=== PATIENT | female | born 1970 | race Caucasian/White ===

== ENCOUNTER 2018-07-08 19:28 | Inpatient (IN) | payer BC ==
[~2018-07-08] VITALS: Ht 157.5 cm; Wt 49.5 kg
[2018-07-08 19:53] LABS: BASO # 0.1 x10^3/uL (0.0-0.2); BASO % 1 % (0-3); EOS # 0.1 x10^3/uL (0.0-0.7); EOS % 1 % (0-3); HEMATOCRIT 24.8 % (36.0-47.0); HEMOGLOBIN 7.5 g/dL (12.0-15.5); LYMPH # 1.7 x10^3/uL (1.0-4.8); LYMPH % 15 % (24-48); MEAN CORPUSCULAR HEMOGLOBIN 22 pg (25-35); MEAN CORPUSCULAR HGB CONC 31 g/dL (31-37); MEAN CORPUSCULAR VOLUME 72 fL (79-100); MONO # 0.8 x10^3/uL (0.0-1.1); MONO % 7 % (0-9); NEUT # 8.3 x10^3uL (1.8-7.7); NEUT % 76 % (31-73); PLATELET COUNT 289 x10^3/uL (140-400); RED BLOOD COUNT 3.42 x10^6/uL (3.50-5.40); RED CELL DISTRIBUTION WIDTH 18.9 % (11.5-14.5)
[2018-07-08] MEDS ORDERED: DULO20CA PO (19:56)
[2018-07-08] MEDS ORDERED: CARV3.12 PO (19:56)
[2018-07-08] MEDS ORDERED: POTA10TA12 PO (19:56)
[2018-07-08] MEDS ORDERED: PRED2.5T PO (19:56)
[2018-07-08] MEDS ORDERED: LISI2.5T PO (19:56)
[2018-07-08] MEDS ORDERED: ATOR40TA59 PO (19:56)
[2018-07-08] MEDS ORDERED: TIZA4TAB PO (19:56)
[2018-07-08] MEDS ORDERED: LEVE500T57 PO (19:56)
[2018-07-08] MEDS ORDERED: MYCO500T PO (19:56)
[2018-07-08] MEDS ORDERED: FURO40TA4 PO (19:56)
[2018-07-08] MEDS ORDERED: HYDR200T5 PO (19:56)
[2018-07-08 20:05] LABS: PROTHROMBIN TIME PATIENT 14.1 SEC (11.7-14.0)
[2018-07-08 20:12] LABS: ALBUMIN/GLOBULIN RATIO 0.8 (1.0-1.7); CALCIUM 8.6 mg/dL (8.5-10.1); CREATININE 1.1 mg/dL (0.6-1.0); GFR 53.2; POTASSIUM 3.3 mmol/L (3.5-5.1); TOTAL BILIRUBIN 0.4 mg/dL (0.2-1.0); TOTAL PROTEIN 6.9 g/dL (6.4-8.2)
[2018-07-08 20:24] LABS: ANISOCYTOSIS SLIGHT; HYPOCHROMIA MOD; MICROCYTOSIS SLIGHT; OVALOCYTES FEW; PLT ESTIMATE ADEQUATE (ADEQUATE); POLYCHROMASIA SLIGHT
--- NOTE | 2018-07-08 20:27 | PHYS DOC ---
Adult General Chief Complaint Chief Complaint: Neck Pain [facility] HPI Patient is a 47 year old female who brought in by EMS because of left-sided neck pain. Patient had extensive cardiac history with history of mitral valve r epair, coronary artery disease status post stent placement and CABG, hypertension and accepted them, smoking and complaining of sudden onset of nonexertional left side neck pain with radiation to her jaw with shortness of breath, dizziness, palpitation and nausea. Patient also complaining of headache that is different from her migraine headache. Patient said she had the same neck pain with previous episodes of heart attack. Patient rated her pain 7. Patient treated with aspirin and nitroglycerin 2 by EMS with improvement of her neck pain. Review of Systems Review of Systems Constitutional: Denies fever or chills [] Eyes: Denies change in visual acuity, redness, or eye pain [] HENT: Denies nasal congestion or sore throat [] Respiratory: Reports mild cough and shortness of breath Cardiovascular: No additional information not addressed in HPI [] GI: Denies abdominal pain, vomiting, bloody stools or diarrhea, reports nausea. [] : Denies dysuria or hematuria [] Musculoskeletal: Denies back pain or joint pain [] Integument: Denies rash or skin lesions [] Neurologic: Denies headache, focal weakness or sensory changes [] Endocrine: Denies polyuria or polydipsia [] All other systems were reviewed and found to be within normal limits, except as documented in this note. Current Medications Current Medications Allergies Allergies Allergies Coded Allergies Type Severity Reaction Last Updated Verified No Known Drug Allergies 07/08/18 No Physical Exam Physical Exam Constitutional: Well developed, mild distress, non-toxic appearance, pale. [] HENT: Normocephalic, atraumatic. Eyes: PERRLA, EOMI, conjunctiva normal, no discharge. [] Neck: Normal range of motion, no tenderness, supple, no stridor. [] Cardiovascular:Heart rate regular rhythm, diastolic murmur [] Lungs & Thorax: Bilateral breath sounds clear to auscultation [] Abdomen: Bowel sounds normal, soft, no tenderness, no masses, no pulsatile masses. [] Skin: Warm, dry, no erythema, no rash. [] Back: No tenderness, no CVA tenderness. [] Extremities: No tenderness, no cyanosis, no clubbing, ROM intact, no edema. [] Neurologic: Alert and oriented X 3, normal motor function, normal sensory function, no focal deficits noted. [] Psychologic: Affect normal, judgement normal, mood normal. [] Current Patient Data Vital Signs Vital Signs Date Time Temp Pulse Resp B/P (MAP) Pulse Ox O2 Delivery O2 Flow Rate FiO2 07/08/18 20:37 86 18 115/71 (86) 100 Room Air 07/08/18 19:28 98.0 98.0 Lab Values Laboratory Tests Test 07/08/18 19:40 White Blood Count 11.0 x10^3/uL (4.0-11.0) Red Blood Count 3.42 x10^6/uL (3.50-5.40) L Hemoglobin 7.5 g/dL (12.0-15.5) L Hematocrit 24.8 % (36.0-47.0) L Mean Corpuscular Volume 72 fL (79-100) L Mean Corpuscular Hemoglobin 22 pg (25-35) L Mean Corpuscular Hemoglobin Concent 31 g/dL (31-37) Red Cell Distribution Width 18.9 % (11.5-14.5) H Platelet Count 289 x10^3/uL (140-400) Neutrophils (%) (Auto) 76 % (31-73) H Lymphocytes (%) (Auto) 15 % (24-48) L Monocytes (%) (Auto) 7 % (0-9) Eosinophils (%) (Auto) 1 % (0-3) Basophils (%) (Auto) 1 % (0-3) Neutrophils # (Auto) 8.3 x10^3uL (1.8-7.7) H Lymphocytes # (Auto) 1.7 x10^3/uL (1.0-4.8) Monocytes # (Auto) 0.8 x10^3/uL (0.0-1.1) Eosinophils # (Auto) 0.1 x10^3/uL (0.0-0.7) Basophils # (Auto) 0.1 x10^3/uL (0.0-0.2) Platelet Estimate Adequate (ADEQUATE) Polychromasia Slight Hypochromasia Mod Anisocytosis Slight Microcytosis Slight Ovalocytes Few Prothrombin Time 14.1 SEC (11.7-14.0) H Prothrombin Time INR 1.1 (0.8-1.1) Sodium Level 137 mmol/L (136-145) Potassium Level 3.3 mmol/L (3.5-5.1) L Chloride Level 102 mmol/L (98-107) Carbon Dioxide Level 22 mmol/L (21-32) Anion Gap 13 (6-14) Blood Urea Nitrogen 14 mg/dL (7-20) Creatinine 1.1 mg/dL (0.6-1.0) H Estimated GFR (Cockcroft-Gault) 53.2 BUN/Creatinine Ratio 13 (6-20) Glucose Level 125 mg/dL (70-99) H Calcium Level 8.6 mg/dL (8.5-10.1) Total Bilirubin 0.4 mg/dL (0.2-1.0) Aspartate Amino Transferase (AST) 15 U/L (15-37) Alanine Aminotransferase (ALT) 14 U/L (14-59) Alkaline Phosphatase 96 U/L (46-116) Creatine Kinase 85 U/L (26-192) Troponin I Quantitative 0.031 ng/mL (0.000-0.055) DS-Qox-K-Type Natriuretic Peptide 3188 pg/mL (0-124) H Total Protein 6.9 g/dL (6.4-8.2) Albumin 3.0 g/dL (3.4-5.0) L Albumin/Globulin Ratio 0.8 (1.0-1.7) L Laboratory Tests 07/08/18 19:40 Laboratory Tests 07/08/18 19:40 EKG EKG EKG interpreted by me. EKG at 1932 showed sinus rhythm with rate of 98, abnormal left axis deviation, left anterior fascicular block, right bundle branch block, bifascicular block, LVH repolarization abnormalities, T-wave abnormalities in anteroseptal leads, no acute ST and T-wave elevation, no previous EKG available to compare.[] Radiology/Procedures Radiology/Procedures Chest x-ray interpreted by me and shows cardiomegaly without infiltration. [facility] [address] [place], [place] [id number] IMAGING REPORT Signed PATIENT: NATALIIA HARRIS ACCOUNT: [id number] : 1970 LOCATION: 2 SOUTH AGE: 47 SEX: F EXAM STATUS: ADM IN ORD. PHYSICIAN: INO PAULA MD REASON: headache PROCEDURE: CT HEAD WO CONTRAST CT Head W/O Contrast: History: headache Comparison: none Axial images were obtained without contrast. There is moderate diffuse atrophy. There is hypoattenuating areas of evolving duarte-white matter in the occipital lobes and in the frontoparietal lobes. The frontoparietal lobes there is loss of volume. There is no mass effect, extraaxial fluid collections or hydrocephalus. There is no focal loss of duarte-white matter distinction to suggest acute ischemia, i.e. stroke. Impression: 1. Moderate diffuse cerebral atrophy is advanced for the patient's age. 2. Large bilateral infarcts. The frontal parietal lobe infarcts appear old. The occipital lobe infarcts could be subacute. Clinical correlation is suggested. PQRS Compliance Statement: One or more of the following individualized dose reduction techniques were utilized for this examination: 1. Automated exposure control 2. Adjustment of the mA and/or kV according to patient size 3. Use of iterative reconstruction technique Electronically signed by: Loreta Cárdenas III, MD (07/08/2018 9:20 PM) [facility] DICTATED and SIGNED BY: LORETA CÁRDENAS III, MD DATE: 07/08/182119 Course & Med Decision Making Course & Med Decision Making Pertinent Labs and Imaging studies reviewed. (See chart for details) Evaluation of patient in ER showed 47-year-old female patient brought in by EMS because of left-sided neck pain like her previous episodes of heart attack with multiple cardiac risk factor. Patient had unremarkable labs except for blood of 7.5 as a chronic problem and carcinoma 1.1. BNP was around 4000. Patient was having is seen in this hospital previously. CT head showed old and possible subacute infarct. Patient did not have any neurovascular deficit. Patient also didn't have meningeal sign. EKG had extensive T-wave changes acute ST and T wave abnormality.Patient requiring admission for further evaluation and treatment. Discussed with Dr. Trotter who is in agreement with admission. Discussed findings and plan with patient and family, who acknowledge understanding and agreement. Dragon Disclaimer Dragon Disclaimer This electronic medical record was generated, in whole or in part, using a voice recognition dictation system. 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 Disposition: 09 ADMITTED INPATIENT (at 2039) Admitting Physician: Mara Trotter Condition: IMPROVED Referrals: UNKNOWN PCP NAME (PCP) Problem Qualifiers Additional Impressions: Headache Headache type: unspecified Headache chronicity pattern: unspecified pattern Intractability: not intractable Qualified Codes: R51 - Headache Anemia Anemia type: unspecified type Qualified Codes: D64.9 - Anemia, unspecified CHF (congestive heart failure) Heart failure type: unspecified Heart failure chronicity: unspecified Qualified Codes: I50.9 - Heart failure, unspecified Coronary artery disease Coronary Disease-Associated Artery/Lesion type: bypass graft [place] vs. transplanted heart: unspecified whether [place] or transplanted heart Associated angina: angina presence unspecified Qualified Codes: I25.810 - Atherosclerosis of coronary artery bypass graft(s) without angina pectoris INO PAULA MD Jul 08, 2018 20:27
[2018-07-08] MEDS ORDERED: HYDROcodone/APAP 5/325MG 1 TAB TABLET PO ONE (21:15)
[2018-07-08] MEDS ORDERED: POTASSIUM CHLORIDE 20 MEQ TABLET.ER. PO ONE (21:15)
[2018-07-08 21:19] LABS: BILIRUBIN,URINE NEGATIVE (NEG); CLARITY,URINE CLEAR; COLOR,URINE YELLOW; NITRITE,URINE NEGATIVE (NEG); PROTEIN,URINE NEGATIVE (NEG-TRACE)
--- NOTE | 2018-07-08 21:22 | RAD ---
CT Head W/O Contrast: History: headache Comparison: none Axial images were obtained without contrast. There is moderate diffuse atrophy. There is hypoattenuating areas of evolving duarte-white matter in the occipital lobes and in the frontoparietal lobes. The frontoparietal lobes there is loss of volume. There is no mass effect, extraaxial fluid collections or hydrocephalus. There is no focal loss of duarte-white matter distinction to suggest acute ischemia, i.e. stroke. Impression: 1. Moderate diffuse cerebral atrophy is advanced for the patient's age. 2. Large bilateral infarcts. The frontal parietal lobe infarcts appear old. The occipital lobe infarcts could be subacute. Clinical correlation is suggested. PQRS Compliance Statement: One or more of the following individualized dose reduction techniques were utilized for this examination: 1. Automated exposure control 2. Adjustment of the mA and/or kV according to patient size 3. Use of iterative reconstruction technique Electronically signed by: Chapito Way III, MD (07/08/2018 9:20 PM) [facility]
[2018-07-08 21:24] LABS: SQUAMOUS EPITHELIAL CELL,UR MANY /LPF
[2018-07-08 21:25] LABS: BACTERIA,URINE 0 /HPF (0-FEW); RBC,URINE OCC /HPF (0-2); WBC,URINE OCC /HPF (0-4)
--- NOTE | 2018-07-08 21:30 | NUR ---
The patient, NATALIIA HARRIS, 47 y/o, F admitted by JORGE A MICHAEL MD, was given written information regarding hospital policies, unit procedures and contact persons. Valuables were checked and left with the patient.
[2018-07-08 21:35] LABS: BARBITURATES NEG (NEG); BENZODIAZEPINES NEG (NEG); CANNABINOIDS POS (NEG); COCAINE NEG (NEG); METHADONE NEG (NEG); OPIATES NEG (NEG); PHENCYCLIDINE NEG (NEG)
[2018-07-08 21:37] LABS: AMPHETAMINE/METHAMPHETAMINE NEG (NEG)
[2018-07-08 21:55] VITALS: BP 120/79
[2018-07-08] MEDS: MYCOPHENOLATE MOFETIL 250 MG CAPSULE. PO SCH (23:04)
[2018-07-08] MEDS: LORazepam 1 MG TABLET PO PRN (23:04)
[2018-07-08] MEDS: ATORVASTATIN CALCIUM 40 MG TABLET. PO SCH (23:04)
[2018-07-08] MEDS: tiZANidine 4 MG TABLET. PO SCH (23:04)
[2018-07-08] MEDS: levETIRAcetam 250 MG TABLET PO SCH (23:05)
[2018-07-08] MEDS: MORPHINE SULFATE 4 MG/ML VIAL. IV PRN (23:06)
[2018-07-08 23:28] VITALS: BP 135/80
[2018-07-09] VITALS (16 sets, daily range): BP systolic 76–113; BP diastolic 45–66
[2018-07-09 04:01] LABS: BASO # 0.1 x10^3/uL (0.0-0.2); BASO % 1 % (0-3); EOS # 0.2 x10^3/uL (0.0-0.7); EOS % 2 % (0-3); HEMATOCRIT 22.5 % (36.0-47.0); LYMPH # 2.2 x10^3/uL (1.0-4.8); LYMPH % 27 % (24-48); MEAN CORPUSCULAR HEMOGLOBIN 22 pg (25-35); MEAN CORPUSCULAR HGB CONC 30 g/dL (31-37); MEAN CORPUSCULAR VOLUME 73 fL (79-100); MONO # 0.7 x10^3/uL (0.0-1.1); MONO % 9 % (0-9); NEUT # 5.2 x10^3uL (1.8-7.7); NEUT % 62 % (31-73); PLATELET COUNT 262 x10^3/uL (140-400); RED BLOOD COUNT 3.08 x10^6/uL (3.50-5.40); RED CELL DISTRIBUTION WIDTH 18.9 % (11.5-14.5); WHITE BLOOD COUNT 8.4 x10^3/uL (4.0-11.0)
[2018-07-09 04:19] LABS: ALBUMIN 2.8 g/dL (3.4-5.0); ALBUMIN/GLOBULIN RATIO 0.8 (1.0-1.7); CALCIUM 8.7 mg/dL (8.5-10.1); GFR 59.4; POTASSIUM 3.9 mmol/L (3.5-5.1); TOTAL BILIRUBIN 0.4 mg/dL (0.2-1.0); TOTAL PROTEIN 6.2 g/dL (6.4-8.2)
[2018-07-09 04:26] LABS: HEMOGLOBIN 6.8 g/dL (12.0-15.5)
--- NOTE | 2018-07-09 08:18 | RAD ---
PORTABLE CHEST 1V History: Atraumatic chest pain on the left sided radiating to the neck Comparison: None. Findings: Single view of the chest is submitted. There is been median sternotomy, valvular prosthesis present. Pericardial cardiac silhouette is slightly prominent. There is mild interstitial opacity with basilar predominance. There is no pneumothorax or lobar consolidation. There is likely mild left base atelectasis. Trace pleural effusions are difficult to exclude on this exam. Impression: 1. There is mild interstitial opacity with basilar prominence which may be due to interstitial edema, trace pleural effusions difficult to exclude on this exam without lateral view. Electronically signed by: Babatunde Powers MD (07/09/2018 8:16 AM) [facility]
[2018-07-09] MEDS: MYCOPHENOLATE MOFETIL 250 MG CAPSULE. PO SCH ×2 (09:05→20:41)
[2018-07-09] MEDS: predniSONE 5 MG TABLET PO SCH (09:06)
[2018-07-09] MEDS: levETIRAcetam 250 MG TABLET PO SCH ×2 (09:06→20:41)
[2018-07-09] MEDS: CARVEDILOL 3.125 MG TABLET. PO SCH ×2 (09:06→17:00)
[2018-07-09] MEDS: tiZANidine 4 MG TABLET. PO SCH ×3 (09:07→20:42)
[2018-07-09] MEDS: LISINOPRIL 5 MG TABLET. PO SCH (09:07)
[2018-07-09] MEDS: HYDROXYCHLOROQUINE 200 MG TABLET PO SCH ×2 (09:07→20:41)
[2018-07-09] MEDS: POTASSIUM CHLORIDE 10 MEQ TABLET.ER. PO SCH (09:07)
[2018-07-09] MEDS: FUROSEMIDE 40 MG TABLET. PO SCH (09:08)
[2018-07-09] MEDS: DULoxetine HCL 20 MG CAPSULE.DR PO SCH (09:08)
[2018-07-09] MEDS: oxyCODONE/APAP 5/325 1 TAB TABLET PO PRN ×2 (10:58→20:43)
[2018-07-09] MEDS: LORazepam 1 MG TABLET PO PRN (10:58)
--- NOTE | 2018-07-09 11:14 | PDOC2 ---
CONSULT Date of Consult Date of Consult DATE: 07/09/18 TIME: 11:14 Reason for Consult Reason for Consult: Neck pain, possible anginal equivalent Referring Physician Referring Physician: Dr. Campbell Identification/Chief Complaint Chief Complaint Headache and neck pain Source Source: Chart review, Patient History of Present Illness Reason for Visit: 47-year-old female presented with left-sided neck pain and headache that patient stated was different than her migraine headaches. She actually stated that the neck pain was similar to the pain she had prior to her coronary artery bypass surgery. She denied any chest pain as such. She also denied any orthopnea/PND, palpitations or syncope. She apparently had coronary artery bypass surgery and mitral valve repair in [address] Sigala at [facility]. Past Medical History Past Medical History Coronary artery disease s/p coronary artery bypass surgery in 2017 Hypertension Hyperlipidemia Mitral valve disease Migraine Past Surgical History Past Surgical History Coronary artery bypass surgery and mitral valve repair Family History Family History Positive for coronary artery disease and hypertension Social History Social History Patient admitted to smoking cigarettes and marijuana. 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 Status: Acute (6) Tobacco abuse Status: Acute (7) Tobacco abuse counseling Status: Acute Current Medications Current Medications Current Medications Acetaminophen/ Hydrocodone Bitart (Lortab 5/325) 1 tab 1X ONCE PO Last administered on 07/08/18at 21:05; Start 07/08/18 at 21:15; Stop 07/08/18 at 21:16; Status DC Potassium Chloride (Klor-Con) 40 meq 1X ONCE PO Last administered on 07/08/18at 21:06; Start 07/08/18 at 21:15; Stop 07/08/18 at 21:16; Status DC Atorvastatin Calcium (Lipitor) 40 mg HS PO Last administered on 07/08/18at 23:04; Start 07/08/18 at 22:00 Carvedilol (Coreg) 3.125 mg BIDWMEALS PO Last administered on 07/09/18at 09:06; Start 07/09/18 at 08:00 Furosemide (Lasix) 40 mg DAILY PO Last administered on 07/09/18 09:08; Start 07/09/18 at 09:00 Potassium Chloride (Klor-Con) 10 meq DAILY PO Last administered on 07/09/18 09:07; Start 07/09/18 at 09:00 Duloxetine HCl (Cymbalta) 20 mg DAILY PO Last administered on 07/09/18 09:08; Start 07/09/18 at 09:00 Hydroxychloroquine Sulfate (Plaquenil) 200 mg BID PO Last administered on 07/09/18 09:07; Start 07/09/18 at 09:00 Levetiracetam (Keppra) 250 mg BID PO Last administered on 07/09/18 09:06; Start 07/08/18 at 23:00 Lisinopril (Prinivil) 2.5 mg DAILY PO Last administered on 07/09/18 09:07; Start 07/09/18 at 09:00 Mycophenolate Mofetil (Cellcept) 500 mg BID PO Last administered on 07/09/18 09:05; Start 07/08/18 at 23:00 Prednisone (Prednisone) 2.5 mg DAILY PO Last administered on 07/09/18 09:06; Start 07/09/18 at 09:00 Tizanidine HCl (Zanaflex) 4 mg TID PO Last administered on 07/09/18 09:07; Start 07/08/18 at 23:00 Morphine Sulfate (Morphine Sulfate) 4 mg PRN Q2HR PRN IV SEVERE PAIN Last administered on 07/08/18 23:06; Start 07/08/18 at 23:00 Lorazepam (Ativan) 1 mg PRN Q6HRS PRN PO ANXIETY / AGITATION Last administered on 07/09/18 10:58; Start 07/08/18 at 23:00 Oxycodone/ Acetaminophen (Percocet 5/325) 1 tab PRN Q4HRS PRN PO PAIN Last administered on 07/09/18 10:58; Start 07/09/18 at 10:45 Active Scripts Active Reported Tizanidine Hcl 4 Mg Tablet 1 Tab PO TID Prednisone 2.5 Mg Tablet 1 Tab PO DAILY Potassium Chloride 10 Meq Tab.sr.24h 10 Meq PO DAILY Cellcept (Mycophenolate Mofetil) 500 Mg Tablet 1 Tab PO BID Lisinopril 2.5 Mg Tablet 1 Tab PO DAILY Keppra Xr (Levetiracetam) 500 Mg Tab.er.24h 500 Mg PO DAILY Hydroxychloroquine Sulfate 200 Mg Tablet 200 Mg PO BID Furosemide 40 Mg Tablet 1 Tab PO DAILY Cymbalta (Duloxetine Hcl) 20 Mg Capsule.dr 1 Cap PO DAILY Coreg (Carvedilol) 3.125 Mg Tablet 3.125 Mg PO BIDWMEALS Atorvastatin Calcium 40 Mg Tablet 40 Mg PO HS Allergies Allergies: Coded Allergies: No Known Drug Allergies (Unverified , 07/08/18) ROS PSYCHOLOGICAL ROS: No: Hallucinations Eyes: No Loss of vision HEENT: YES: Heacaches; No: Epistaxis ENDOCRINE: No: Palpitations Respiratory: No: Hemoptysis Cardiovascular: No Chest Pain Gastrointestinal: No Vomiting Genitourinary: No Hematuria Neurological: No Memory Loss Skin: No Rash Physical Exam General: Alert, Oriented X3 HEENT: Atraumatic, PERRLA Lungs: Clear to auscultation Heart: Regular rate, Other (PSM apex) Abdomen: Soft, No tenderness Neuro: Normal speech Psych/Mental Status: Mood NL Vitals VITALS Vital Signs Date Time Temp Pulse Resp B/P (MAP) Pulse Ox O2 Delivery O2 Flow Rate FiO2 07/09/18 09:07 75 07/09/18 09:03 113/65 (81) 07/09/18 07:42 97.9 16 98 Room Air 97.9 Labs Labs Laboratory Tests Test 07/08/18 19:40 07/08/18 21:10 07/09/18 00:05 07/09/18 03:30 White Blood Count 11.0 x10^3/uL (4.0-11.0) 8.4 x10^3/uL (4.0-11.0) Red Blood Count 3.42 x10^6/uL (3.50-5.40) 3.08 x10^6/uL (3.50-5.40) Hemoglobin 7.5 g/dL (12.0-15.5) 6.8 g/dL (12.0-15.5) Hematocrit 24.8 % (36.0-47.0) 22.5 % (36.0-47.0) Mean Corpuscular Volume 72 fL (79-100) 73 fL (79-100) Mean Corpuscular Hemoglobin 22 pg (25-35) 22 pg (25-35) Mean Corpuscular Hemoglobin Concent 31 g/dL (31-37) 30 g/dL (31-37) Red Cell Distribution Width 18.9 % (11.5-14.5) 18.9 % (11.5-14.5) Platelet Count 289 x10^3/uL (140-400) 262 x10^3/uL (140-400) Neutrophils (%) (Auto) 76 % (31-73) 62 % (31-73) Lymphocytes (%) (Auto) 15 % (24-48) 27 % (24-48) Monocytes (%) (Auto) 7 % (0-9) 9 % (0-9) Eosinophils (%) (Auto) 1 % (0-3) 2 % (0-3) Basophils (%) (Auto) 1 % (0-3) 1 % (0-3) Neutrophils # (Auto) 8.3 x10^3uL (1.8-7.7) 5.2 x10^3uL (1.8-7.7) Lymphocytes # (Auto) 1.7 x10^3/uL (1.0-4.8) 2.2 x10^3/uL (1.0-4.8) Monocytes # (Auto) 0.8 x10^3/uL (0.0-1.1) 0.7 x10^3/uL (0.0-1.1) Eosinophils # (Auto) 0.1 x10^3/uL (0.0-0.7) 0.2 x10^3/uL (0.0-0.7) Basophils # (Auto) 0.1 x10^3/uL (0.0-0.2) 0.1 x10^3/uL (0.0-0.2) Platelet Estimate Adequate (ADEQUATE) Polychromasia Slight Hypochromasia Mod Anisocytosis Slight Microcytosis Slight Ovalocytes Few Prothrombin Time 14.1 SEC (11.7-14.0) Prothromb Time International Ratio 1.1 (0.8-1.1) Sodium Level 137 mmol/L (136-145) 138 mmol/L (136-145) Potassium Level 3.3 mmol/L (3.5-5.1) 3.9 mmol/L (3.5-5.1) Chloride Level 102 mmol/L (98-107) 105 mmol/L (98-107) Carbon Dioxide Level 22 mmol/L (21-32) 25 mmol/L (21-32) Anion Gap 13 (6-14) 8 (6-14) Blood Urea Nitrogen 14 mg/dL (7-20) 12 mg/dL (7-20) Creatinine 1.1 mg/dL (0.6-1.0) 1.0 mg/dL (0.6-1.0) Estimated GFR (Cockcroft-Gault) 53.2 59.4 BUN/Creatinine Ratio 13 (6-20) 12 (6-20) Glucose Level 125 mg/dL (70-99) 86 mg/dL (70-99) Calcium Level 8.6 mg/dL (8.5-10.1) 8.7 mg/dL (8.5-10.1) Total Bilirubin 0.4 mg/dL (0.2-1.0) 0.4 mg/dL (0.2-1.0) Aspartate Amino Transf (AST/SGOT) 15 U/L (15-37) 12 U/L (15-37) Alanine Aminotransferase (ALT/SGPT) 14 U/L (14-59) 13 U/L (14-59) Alkaline Phosphatase 96 U/L (46-116) 87 U/L (46-116) Creatine Kinase 85 U/L (26-192) Troponin I Quantitative 0.031 ng/mL (0.000-0.055) 0.026 ng/mL (0.000-0.055) 0.022 ng/mL (0.000-0.055) GL-Bvc-D-Type Natriuretic Peptide 3188 pg/mL (0-124) Total Protein 6.9 g/dL (6.4-8.2) 6.2 g/dL (6.4-8.2) Albumin 3.0 g/dL (3.4-5.0) 2.8 g/dL (3.4-5.0) Albumin/Globulin Ratio 0.8 (1.0-1.7) 0.8 (1.0-1.7) Urine Collection Type Unknown Urine Color Yellow Urine Clarity Clear Urine pH 7.0 Urine Specific [place] 1.020 Urine Protein Negative mg/dL (NEG-TRACE) Urine Glucose (UA) Negative mg/dL (NEG) Urine Ketones (Stick) Negative mg/dL (NEG) Urine Blood Negative (NEG) Urine Nitrite Negative (NEG) Urine Bilirubin Negative (NEG) Urine Urobilinogen Dipstick 2.0 mg/dL (0.2 mg/dL) Urine Leukocyte Esterase Negative (NEG) Urine RBC Occ /HPF (0-2) Urine WBC Occ /HPF (0-4) Urine Squamous Epithelial Cells Many /LPF Urine Bacteria 0 /HPF (0-FEW) Urine Mucus Mod /LPF Urine Opiates Screen Neg (NEG) Urine Methadone Screen Neg (NEG) Urine Barbiturates Neg (NEG) Urine Phencyclidine Screen Neg (NEG) Urine Amphetamine/Methamphetamine Neg (NEG) Urine Benzodiazepines Screen Neg (NEG) Urine Cocaine Screen Neg (NEG) Urine Cannabinoids Screen Pos (NEG) Urine Ethyl Alcohol Neg (NEG) Magnesium Level 1.9 mg/dL (1.8-2.4) Laboratory Tests Test 07/08/18 19:40 07/08/18 21:10 07/09/18 00:05 07/09/18 03:30 White Blood Count 11.0 x10^3/uL (4.0-11.0) 8.4 x10^3/uL (4.0-11.0) Red Blood Count 3.42 x10^6/uL (3.50-5.40) 3.08 x10^6/uL (3.50-5.40) Hemoglobin 7.5 g/dL (12.0-15.5) 6.8 g/dL (12.0-15.5) Hematocrit 24.8 % (36.0-47.0) 22.5 % (36.0-47.0) Mean Corpuscular Volume 72 fL (79-100) 73 fL (79-100) Mean Corpuscular Hemoglobin 22 pg (25-35) 22 pg (25-35) Mean Corpuscular Hemoglobin Concent 31 g/dL (31-37) 30 g/dL (31-37) Red Cell Distribution Width 18.9 % (11.5-14.5) 18.9 % (11.5-14.5) Platelet Count 289 x10^3/uL (140-400) 262 x10^3/uL (140-400) Neutrophils (%) (Auto) 76 % (31-73) 62 % (31-73) Lymphocytes (%) (Auto) 15 % (24-48) 27 % (24-48) Monocytes (%) (Auto) 7 % (0-9) 9 % (0-9) Eosinophils (%) (Auto) 1 % (0-3) 2 % (0-3) Basophils (%) (Auto) 1 % (0-3) 1 % (0-3) Neutrophils # (Auto) 8.3 x10^3uL (1.8-7.7) 5.2 x10^3uL (1.8-7.7) Lymphocytes # (Auto) 1.7 x10^3/uL (1.0-4.8) 2.2 x10^3/uL (1.0-4.8) Monocytes # (Auto) 0.8 x10^3/uL (0.0-1.1) 0.7 x10^3/uL (0.0-1.1) Eosinophils # (Auto) 0.1 x10^3/uL (0.0-0.7) 0.2 x10^3/uL (0.0-0.7) Basophils # (Auto) 0.1 x10^3/uL (0.0-0.2) 0.1 x10^3/uL (0.0-0.2) Platelet Estimate Adequate (ADEQUATE) Polychromasia Slight Hypochromasia Mod Anisocytosis Slight Microcytosis Slight Ovalocytes Few Prothrombin Time 14.1 SEC (11.7-14.0) Prothromb Time International Ratio 1.1 (0.8-1.1) Sodium Level 137 mmol/L (136-145) 138 mmol/L (136-145) Potassium Level 3.3 mmol/L (3.5-5.1) 3.9 mmol/L (3.5-5.1) Chloride Level 102 mmol/L (98-107) 105 mmol/L (98-107) Carbon Dioxide Level 22 mmol/L (21-32) 25 mmol/L (21-32) Anion Gap 13 (6-14) 8 (6-14) Blood Urea Nitrogen 14 mg/dL (7-20) 12 mg/dL (7-20) Creatinine 1.1 mg/dL (0.6-1.0) 1.0 mg/dL (0.6-1.0) Estimated GFR (Cockcroft-Gault) 53.2 59.4 BUN/Creatinine Ratio 13 (6-20) 12 (6-20) Glucose Level 125 mg/dL (70-99) 86 mg/dL (70-99) Calcium Level 8.6 mg/dL (8.5-10.1) 8.7 mg/dL (8.5-10.1) Total Bilirubin 0.4 mg/dL (0.2-1.0) 0.4 mg/dL (0.2-1.0) Aspartate Amino Transf (AST/SGOT) 15 U/L (15-37) 12 U/L (15-37) Alanine Aminotransferase (ALT/SGPT) 14 U/L (14-59) 13 U/L (14-59) Alkaline Phosphatase 96 U/L (46-116) 87 U/L (46-116) Creatine Kinase 85 U/L (26-192) Troponin I Quantitative 0.031 ng/mL (0.000-0.055) 0.026 ng/mL (0.000-0.055) 0.022 ng/mL (0.000-0.055) MU-Enc-O-Type Natriuretic Peptide 3188 pg/mL (0-124) Total Protein 6.9 g/dL (6.4-8.2) 6.2 g/dL (6.4-8.2) Albumin 3.0 g/dL (3.4-5.0) 2.8 g/dL (3.4-5.0) Albumin/Globulin Ratio 0.8 (1.0-1.7) 0.8 (1.0-1.7) Urine Collection Type Unknown Urine Color Yellow Urine Clarity Clear Urine pH 7.0 Urine Specific [place] 1.020 Urine Protein Negative mg/dL (NEG-TRACE) Urine Glucose (UA) Negative mg/dL (NEG) Urine Ketones (Stick) Negative mg/dL (NEG) Urine Blood Negative (NEG) Urine Nitrite Negative (NEG) Urine Bilirubin Negative (NEG) Urine Urobilinogen Dipstick 2.0 mg/dL (0.2 mg/dL) Urine Leukocyte Esterase Negative (NEG) Urine RBC Occ /HPF (0-2) Urine WBC Occ /HPF (0-4) Urine Squamous Epithelial Cells Many /LPF Urine Bacteria 0 /HPF (0-FEW) Urine Mucus Mod /LPF Urine Opiates Screen Neg (NEG) Urine Methadone Screen Neg (NEG) Urine Barbiturates Neg (NEG) Urine Phencyclidine Screen Neg (NEG) Urine Amphetamine/Methamphetamine Neg (NEG) Urine Benzodiazepines Screen Neg (NEG) Urine Cocaine Screen Neg (NEG) Urine Cannabinoids Screen Pos (NEG) Urine Ethyl Alcohol Neg (NEG) Magnesium Level 1.9 mg/dL (1.8-2.4) Assessment/Plan Assessment/Plan 1. Neck pain and headache in a patient with history of migraine: Doubt cardiac etiology. Continue supportive care per IM 2. Coronary artery disease s/p coronary artery bypass surgery in 2017. She appears to be clinically stable without any chest pain. Cardiac enzymes have been negative so far and EKG did not show any acute changes. We will obtain records from [facility]. Continue current medical regimen. 3. Elevated BNP level, most probably mild acute on chronic diastolic heart failure. Continue diuretics orally. Check 2-D echo to assess LV systolic function. 4. CVA: CT scan of the head showed multiple infarcts, probably old. We will check bubble study with 2-D echocardiogram to rule out paradoxical embolization. Check carotid arterial duplex scan. 5. Hyperlipidemia: Continue statin therapy Thank you for your consultation CRISTOPHER CASTILLO MD Jul 09, 2018 11:14
--- NOTE | 2018-07-09 11:25 | PDOC1 ---
History and Physical Date of Admission: Date of Admission DATE: 07/09/18 TIME: 11:21 Chief Complaint: Problems: (1) Anemia (2) Headache (3) Neck pain (4) Old cerebral infarct without residual deficit (5) Coronary artery disease (6) Hypokalemia (7) CHF (congestive heart failure) (8) Mitral valve disease (9) Tobacco abuse (10) Tobacco abuse counseling Chief Complain: Neck pain chest pain History of Present Illness: HPI: Patient is a 47 year old female who brought in by EMS because of left-sided neck pain. Patient had extensive cardiac history with history of mitral valve repair, coronary artery disease status post stent placement and CABG, hypertension and accepted them, smoking and complaining of sudden onset of nonexertional left side neck pain with radiation to her jaw with shortness of breath, dizziness, palpitation and nausea. Patient also complaining of headache that is different from her migraine headache. Patient said she had the same neck pain with previous episodes of heart attack. Patient rated her pain 7. Patient treated with aspirin and nitroglycerin 2 by EMS with improvement of her neck pain. Past Medical/Surgical History: PMH/PSH: History of bypass surgery 2 years ago Allergies: Allergies: Coded Allergies: No Known Drug Allergies (Unverified , 07/08/18) Family History: Family History: CAD Social History: Social Hisoty: She smokes marijuana and cigarettes she is going through a divorce she has one child its in penitentiary and the other one is acting out she states she is under a lot of stress Current Medications: Current Medications Current Medications Acetaminophen/ Hydrocodone Bitart (Lortab 5/325) 1 tab 1X ONCE PO Last administered on 07/08/18at 21:05; Start 07/08/18 at 21:15; Stop 07/08/18 at 21:16; Status DC Potassium Chloride (Klor-Con) 40 meq 1X ONCE PO Last administered on 07/08/18at 21:06; Start 07/08/18 at 21:15; Stop 07/08/18 at 21:16; Status DC Atorvastatin Calcium (Lipitor) 40 mg HS PO Last administered on 07/08/18at 23:04; Start 07/08/18 at 22:00 Carvedilol (Coreg) 3.125 mg BIDWMEALS PO Last administered on 07/09/18at 09:06; Start 07/09/18 at 08:00 Furosemide (Lasix) 40 mg DAILY PO Last administered on 07/09/18 09:08; Start 07/09/18 at 09:00 Potassium Chloride (Klor-Con) 10 meq DAILY PO Last administered on 07/09/18 09:07; Start 07/09/18 at 09:00 Duloxetine HCl (Cymbalta) 20 mg DAILY PO Last administered on 07/09/18 09:08; Start 07/09/18 at 09:00 Hydroxychloroquine Sulfate (Plaquenil) 200 mg BID PO Last administered on 07/09/18 09:07; Start 07/09/18 at 09:00 Levetiracetam (Keppra) 250 mg BID PO Last administered on 07/09/18 09:06; Start 07/08/18 at 23:00 Lisinopril (Prinivil) 2.5 mg DAILY PO Last administered on 07/09/18 09:07; Start 07/09/18 at 09:00 Mycophenolate Mofetil (Cellcept) 500 mg BID PO Last administered on 07/09/18 09:05; Start 07/08/18 at 23:00 Prednisone (Prednisone) 2.5 mg DAILY PO Last administered on 07/09/18 09:06; Start 07/09/18 at 09:00 Tizanidine HCl (Zanaflex) 4 mg TID PO Last administered on 07/09/18 09:07; Start 07/08/18 at 23:00 Morphine Sulfate (Morphine Sulfate) 4 mg PRN Q2HR PRN IV SEVERE PAIN Last administered on 07/08/18 23:06; Start 07/08/18 at 23:00 Lorazepam (Ativan) 1 mg PRN Q6HRS PRN PO ANXIETY / AGITATION Last administered on 07/09/18 10:58; Start 07/08/18 at 23:00 Oxycodone/ Acetaminophen (Percocet 5/325) 1 tab PRN Q4HRS PRN PO PAIN Last administered on 07/09/18 10:58; Start 07/09/18 at 10:45 Active Scripts Active Reported Tizanidine Hcl 4 Mg Tablet 1 Tab PO TID Prednisone 2.5 Mg Tablet 1 Tab PO DAILY Potassium Chloride 10 Meq Tab.sr.24h 10 Meq PO DAILY Cellcept (Mycophenolate Mofetil) 500 Mg Tablet 1 Tab PO BID Lisinopril 2.5 Mg Tablet 1 Tab PO DAILY Keppra Xr (Levetiracetam) 500 Mg Tab.er.24h 500 Mg PO DAILY Hydroxychloroquine Sulfate 200 Mg Tablet 200 Mg PO BID Furosemide 40 Mg Tablet 1 Tab PO DAILY Cymbalta (Duloxetine Hcl) 20 Mg Capsule. 1 Cap PO DAILY Coreg (Carvedilol) 3.125 Mg Tablet 3.125 Mg PO BIDWMEALS Atorvastatin Calcium 40 Mg Tablet 40 Mg PO HS ROS: Review of Systems Review of System REVIEW OF SYSTEMS: GENERAL: Denies weakness SKIN: She complains of bruising EYES: No blurred, double or loss of vision. NOSE AND THROAT: [place] of neck pain HEART: Complains of chest pain LUNGS: Denies cough, hemoptysis, wheezing or shortness of breath. GASTROINTESTINAL: Denies changes in appetite, nausea, vomiting, diarrhea or constipation. GENITOURINARY: No history of frequency, urgency, hesitancy or nocturia. NEUROLOGIC: Denies history of numbness, tingling, tremor or weakness. PSYCHIATRIC: No history of panic, anxiety or depression. ENDOCRINE: No history of heat or cold intolerance, polyuria or polydipsia. EXTREMITIES: Denies muscle weakness, joint pain, pain on walking or stiffness. Physical Exam: Vital Signs: Vital Signs Date Time Temp Pulse Resp B/P (MAP) Pulse Ox O2 Delivery O2 Flow Rate FiO2 07/09/18 09:07 75 07/09/18 09:03 113/65 (81) 07/09/18 07:42 97.9 16 98 Room Air 97.9 Physcial Exam: GEN.: No apparent distress. Alert and oriented. HEENT: Head is normocephalic, atraumatic NECK: Supple, no JVD LUNGS: Clear to auscultation without rhonchi or wheezing HEART: RRR, S1, S2 present. Peripheral pulses intact ABDOMEN: Soft, nontender. Positive bowel sounds no organomegaly EXTREMITIES: Without any cyanosis, clubbing, or edema. Pedal pulses intact NEUROLOGIC: Normal speech, normal tone. A&O x 3 PSYCHIATRIC: Normal affect, normal mood. Stable SKIN: Has some bruising on her arms and knees Labs: Labs: Laboratory Tests Test 07/08/18 19:40 07/08/18 21:10 07/09/18 00:05 07/09/18 03:30 White Blood Count 11.0 x10^3/uL (4.0-11.0) 8.4 x10^3/uL (4.0-11.0) Red Blood Count 3.42 x10^6/uL (3.50-5.40) 3.08 x10^6/uL (3.50-5.40) Hemoglobin 7.5 g/dL (12.0-15.5) 6.8 g/dL (12.0-15.5) Hematocrit 24.8 % (36.0-47.0) 22.5 % (36.0-47.0) Mean Corpuscular Volume 72 fL (79-100) 73 fL (79-100) Mean Corpuscular Hemoglobin 22 pg (25-35) 22 pg (25-35) Mean Corpuscular Hemoglobin Concent 31 g/dL (31-37) 30 g/dL (31-37) Red Cell Distribution Width 18.9 % (11.5-14.5) 18.9 % (11.5-14.5) Platelet Count 289 x10^3/uL (140-400) 262 x10^3/uL (140-400) Neutrophils (%) (Auto) 76 % (31-73) 62 % (31-73) Lymphocytes (%) (Auto) 15 % (24-48) 27 % (24-48) Monocytes (%) (Auto) 7 % (0-9) 9 % (0-9) Eosinophils (%) (Auto) 1 % (0-3) 2 % (0-3) Basophils (%) (Auto) 1 % (0-3) 1 % (0-3) Neutrophils # (Auto) 8.3 x10^3uL (1.8-7.7) 5.2 x10^3uL (1.8-7.7) Lymphocytes # (Auto) 1.7 x10^3/uL (1.0-4.8) 2.2 x10^3/uL (1.0-4.8) Monocytes # (Auto) 0.8 x10^3/uL (0.0-1.1) 0.7 x10^3/uL (0.0-1.1) Eosinophils # (Auto) 0.1 x10^3/uL (0.0-0.7) 0.2 x10^3/uL (0.0-0.7) Basophils # (Auto) 0.1 x10^3/uL (0.0-0.2) 0.1 x10^3/uL (0.0-0.2) Platelet Estimate Adequate (ADEQUATE) Polychromasia Slight Hypochromasia Mod Anisocytosis Slight Microcytosis Slight Ovalocytes Few Prothrombin Time 14.1 SEC (11.7-14.0) Prothromb Time International Ratio 1.1 (0.8-1.1) Sodium Level 137 mmol/L (136-145) 138 mmol/L (136-145) Potassium Level 3.3 mmol/L (3.5-5.1) 3.9 mmol/L (3.5-5.1) Chloride Level 102 mmol/L (98-107) 105 mmol/L (98-107) Carbon Dioxide Level 22 mmol/L (21-32) 25 mmol/L (21-32) Anion Gap 13 (6-14) 8 (6-14) Blood Urea Nitrogen 14 mg/dL (7-20) 12 mg/dL (7-20) Creatinine 1.1 mg/dL (0.6-1.0) 1.0 mg/dL (0.6-1.0) Estimated GFR (Cockcroft-Gault) 53.2 59.4 BUN/Creatinine Ratio 13 (6-20) 12 (6-20) Glucose Level 125 mg/dL (70-99) 86 mg/dL (70-99) Calcium Level 8.6 mg/dL (8.5-10.1) 8.7 mg/dL (8.5-10.1) Total Bilirubin 0.4 mg/dL (0.2-1.0) 0.4 mg/dL (0.2-1.0) Aspartate Amino Transf (AST/SGOT) 15 U/L (15-37) 12 U/L (15-37) Alanine Aminotransferase (ALT/SGPT) 14 U/L (14-59) 13 U/L (14-59) Alkaline Phosphatase 96 U/L (46-116) 87 U/L (46-116) Creatine Kinase 85 U/L (26-192) Troponin I Quantitative 0.031 ng/mL (0.000-0.055) 0.026 ng/mL (0.000-0.055) 0.022 ng/mL (0.000-0.055) ZV-Tfo-V-Type Natriuretic Peptide 3188 pg/mL (0-124) Total Protein 6.9 g/dL (6.4-8.2) 6.2 g/dL (6.4-8.2) Albumin 3.0 g/dL (3.4-5.0) 2.8 g/dL (3.4-5.0) Albumin/Globulin Ratio 0.8 (1.0-1.7) 0.8 (1.0-1.7) Urine Collection Type Unknown Urine Color Yellow Urine Clarity Clear Urine pH 7.0 Urine Specific [place] 1.020 Urine Protein Negative mg/dL (NEG-TRACE) Urine Glucose (UA) Negative mg/dL (NEG) Urine Ketones (Stick) Negative mg/dL (NEG) Urine Blood Negative (NEG) Urine Nitrite Negative (NEG) Urine Bilirubin Negative (NEG) Urine Urobilinogen Dipstick 2.0 mg/dL (0.2 mg/dL) Urine Leukocyte Esterase Negative (NEG) Urine RBC Occ /HPF (0-2) Urine WBC Occ /HPF (0-4) Urine Squamous Epithelial Cells Many /LPF Urine Bacteria 0 /HPF (0-FEW) Urine Mucus Mod /LPF Urine Opiates Screen Neg (NEG) Urine Methadone Screen Neg (NEG) Urine Barbiturates Neg (NEG) Urine Phencyclidine Screen Neg (NEG) Urine Amphetamine/Methamphetamine Neg (NEG) Urine Benzodiazepines Screen Neg (NEG) Urine Cocaine Screen Neg (NEG) Urine Cannabinoids Screen Pos (NEG) Urine Ethyl Alcohol Neg (NEG) Magnesium Level 1.9 mg/dL (1.8-2.4) Laboratory Tests Test 07/08/18 19:40 07/08/18 21:10 07/09/18 00:05 07/09/18 03:30 White Blood Count 11.0 x10^3/uL (4.0-11.0) 8.4 x10^3/uL (4.0-11.0) Red Blood Count 3.42 x10^6/uL (3.50-5.40) 3.08 x10^6/uL (3.50-5.40) Hemoglobin 7.5 g/dL (12.0-15.5) 6.8 g/dL (12.0-15.5) Hematocrit 24.8 % (36.0-47.0) 22.5 % (36.0-47.0) Mean Corpuscular Volume 72 fL (79-100) 73 fL (79-100) Mean Corpuscular Hemoglobin 22 pg (25-35) 22 pg (25-35) Mean Corpuscular Hemoglobin Concent 31 g/dL (31-37) 30 g/dL (31-37) Red Cell Distribution Width 18.9 % (11.5-14.5) 18.9 % (11.5-14.5) Platelet Count 289 x10^3/uL (140-400) 262 x10^3/uL (140-400) Neutrophils (%) (Auto) 76 % (31-73) 62 % (31-73) Lymphocytes (%) (Auto) 15 % (24-48) 27 % (24-48) Monocytes (%) (Auto) 7 % (0-9) 9 % (0-9) Eosinophils (%) (Auto) 1 % (0-3) 2 % (0-3) Basophils (%) (Auto) 1 % (0-3) 1 % (0-3) Neutrophils # (Auto) 8.3 x10^3uL (1.8-7.7) 5.2 x10^3uL (1.8-7.7) Lymphocytes # (Auto) 1.7 x10^3/uL (1.0-4.8) 2.2 x10^3/uL (1.0-4.8) Monocytes # (Auto) 0.8 x10^3/uL (0.0-1.1) 0.7 x10^3/uL (0.0-1.1) Eosinophils # (Auto) 0.1 x10^3/uL (0.0-0.7) 0.2 x10^3/uL (0.0-0.7) Basophils # (Auto) 0.1 x10^3/uL (0.0-0.2) 0.1 x10^3/uL (0.0-0.2) Platelet Estimate Adequate (ADEQUATE) Polychromasia Slight Hypochromasia Mod Anisocytosis Slight Microcytosis Slight Ovalocytes Few Prothrombin Time 14.1 SEC (11.7-14.0) Prothromb Time International Ratio 1.1 (0.8-1.1) Sodium Level 137 mmol/L (136-145) 138 mmol/L (136-145) Potassium Level 3.3 mmol/L (3.5-5.1) 3.9 mmol/L (3.5-5.1) Chloride Level 102 mmol/L (98-107) 105 mmol/L (98-107) Carbon Dioxide Level 22 mmol/L (21-32) 25 mmol/L (21-32) Anion Gap 13 (6-14) 8 (6-14) Blood Urea Nitrogen 14 mg/dL (7-20) 12 mg/dL (7-20) Creatinine 1.1 mg/dL (0.6-1.0) 1.0 mg/dL (0.6-1.0) Estimated GFR (Cockcroft-Gault) 53.2 59.4 BUN/Creatinine Ratio 13 (6-20) 12 (6-20) Glucose Level 125 mg/dL (70-99) 86 mg/dL (70-99) Calcium Level 8.6 mg/dL (8.5-10.1) 8.7 mg/dL (8.5-10.1) Total Bilirubin 0.4 mg/dL (0.2-1.0) 0.4 mg/dL (0.2-1.0) Aspartate Amino Transf (AST/SGOT) 15 U/L (15-37) 12 U/L (15-37) Alanine Aminotransferase (ALT/SGPT) 14 U/L (14-59) 13 U/L (14-59) Alkaline Phosphatase 96 U/L (46-116) 87 U/L (46-116) Creatine Kinase 85 U/L (26-192) Troponin I Quantitative 0.031 ng/mL (0.000-0.055) 0.026 ng/mL (0.000-0.055) 0.022 ng/mL (0.000-0.055) UJ-Jlf-C-Type Natriuretic Peptide 3188 pg/mL (0-124) Total Protein 6.9 g/dL (6.4-8.2) 6.2 g/dL (6.4-8.2) Albumin 3.0 g/dL (3.4-5.0) 2.8 g/dL (3.4-5.0) Albumin/Globulin Ratio 0.8 (1.0-1.7) 0.8 (1.0-1.7) Urine Collection Type Unknown Urine Color Yellow Urine Clarity Clear Urine pH 7.0 Urine Specific [place] 1.020 Urine Protein Negative mg/dL (NEG-TRACE) Urine Glucose (UA) Negative mg/dL (NEG) Urine Ketones (Stick) Negative mg/dL (NEG) Urine Blood Negative (NEG) Urine Nitrite Negative (NEG) Urine Bilirubin Negative (NEG) Urine Urobilinogen Dipstick 2.0 mg/dL (0.2 mg/dL) Urine Leukocyte Esterase Negative (NEG) Urine RBC Occ /HPF (0-2) Urine WBC Occ /HPF (0-4) Urine Squamous Epithelial Cells Many /LPF Urine Bacteria 0 /HPF (0-FEW) Urine Mucus Mod /LPF Urine Opiates Screen Neg (NEG) Urine Methadone Screen Neg (NEG) Urine Barbiturates Neg (NEG) Urine Phencyclidine Screen Neg (NEG) Urine Amphetamine/Methamphetamine Neg (NEG) Urine Benzodiazepines Screen Neg (NEG) Urine Cocaine Screen Neg (NEG) Urine Cannabinoids Screen Pos (NEG) Urine Ethyl Alcohol Neg (NEG) Magnesium Level 1.9 mg/dL (1.8-2.4) Images: Images Chest x-ray normal Assessment/Plan Assessment/Plan Neck pain and chest pain severe anemia in a middle-aged female who has known coronary disease with previous coronary bypass grafting Plan Serial enzymes serially EKGs consul cardiology cardiac monitoring home meds DVT prophylaxis full code transfused 2 units of packed red blood cells Prognosis guarded discussed case with the nurse YAYO LINDSAY III, DO Jul 09, 2018 11:25
[2018-07-09] MEDS: ATORVASTATIN CALCIUM 40 MG TABLET. PO SCH (20:41)
[2018-07-09] MEDS: MORPHINE SULFATE 4 MG/ML VIAL. IV PRN (23:21)
[2018-07-10] VITALS (7 sets, daily range): BP systolic 84–122; BP diastolic 48–77
[2018-07-10 05:27] LABS: BASO # 0.1 x10^3/uL (0.0-0.2); BASO % 2 % (0-3); EOS # 0.2 x10^3/uL (0.0-0.7); EOS % 3 % (0-3); HEMATOCRIT 26.8 % (36.0-47.0); HEMOGLOBIN 8.4 g/dL (12.0-15.5); LYMPH # 1.9 x10^3/uL (1.0-4.8); LYMPH % 31 % (24-48); MEAN CORPUSCULAR HEMOGLOBIN 23 pg (25-35); MEAN CORPUSCULAR HGB CONC 31 g/dL (31-37); MEAN CORPUSCULAR VOLUME 75 fL (79-100); MONO # 0.7 x10^3/uL (0.0-1.1); MONO % 12 % (0-9); NEUT # 3.1 x10^3uL (1.8-7.7); NEUT % 53 % (31-73); PLATELET COUNT 266 x10^3/uL (140-400); RED BLOOD COUNT 3.59 x10^6/uL (3.50-5.40); RED CELL DISTRIBUTION WIDTH 19.5 % (11.5-14.5); WHITE BLOOD COUNT 5.9 x10^3/uL (4.0-11.0)
[2018-07-10 05:42] LABS: CALCIUM 8.8 mg/dL (8.5-10.1); GFR 59.4; POTASSIUM 3.9 mmol/L (3.5-5.1)
[2018-07-10] MEDS: tiZANidine 4 MG TABLET. PO SCH ×3 (08:16→21:10)
[2018-07-10] MEDS: HYDROXYCHLOROQUINE 200 MG TABLET PO SCH ×2 (08:17→21:09)
[2018-07-10] MEDS: CARVEDILOL 3.125 MG TABLET. PO SCH ×2 (08:17→21:10)
[2018-07-10] MEDS: LISINOPRIL 5 MG TABLET. PO SCH (08:17)
[2018-07-10] MEDS: MYCOPHENOLATE MOFETIL 250 MG CAPSULE. PO SCH ×2 (08:17→21:09)
[2018-07-10] MEDS: POTASSIUM CHLORIDE 10 MEQ TABLET.ER. PO SCH (08:17)
[2018-07-10] MEDS: DULoxetine HCL 20 MG CAPSULE.DR PO SCH (08:18)
[2018-07-10] MEDS: FUROSEMIDE 40 MG TABLET. PO SCH (08:18)
[2018-07-10] MEDS: predniSONE 5 MG TABLET PO SCH (08:18)
[2018-07-10] MEDS: levETIRAcetam 250 MG TABLET PO SCH ×2 (08:18→21:09)
--- NOTE | 2018-07-10 08:43 | EKG ---
[facility] [address] [place] [address] Test Date: 2018-07-08 Test Time: 19:32:08 Pat Name: NATALIIA HARRIS Department: Room: 262 1 Gender: F Flight Attendant: : 1970 Requested By: INO PAULA Order Number: [id number] Reading MD: Hemant Delvalle Measurements Intervals [place] Rate: 98 P: IN: QRS: -62 QRSD: 134 T: 59 QT: 380 QTc: 487 Interpretive Statements SINUS RHYTHM ABNORMAL LEFT AXIS DEVIATION LEFT ANTERIOR FASCICULAR BLOCK RIGHT BUNDLE BRANCH BLOCK BIFASCICULAR BLOCK RVH WITH REPOLARIZATION ABNORMALITY QRS(T) CONTOUR ABNORMALITY CONSISTENT WITH ANTEROLATERAL INFARCT AGE UNDETERMINED CONSIDER INFERIOR INFARCT ABNORMAL ECG Electronically Signed On 07-13-2018 12:14:25 CDT by Hemant Delvalle
--- NOTE | 2018-07-10 11:38 | PDOC ---
PROGRESS NOTES Subjective Subjective Headache and neck pain improved Objective Objective Vital Signs Date Time Temp Pulse Resp B/P (MAP) Pulse Ox O2 Delivery O2 Flow Rate FiO2 07/10/18 11:05 97.2 68 20 116/68 (84) 100 Room Air 97.2 Intake and Output 07/10/18 07:00 Intake Total 1070 ml Output Total 800 ml Balance 270 ml Intake Oral 920 ml Blood Product IV Normal Saline Flush 150 ml Output Urine Total 800 ml Physical Exam Abdomen: Soft, No tenderness Heart: Regular rate, Other (PSM apex) General: Alert, Oriented X3 HEENT: Atraumatic, PERRLA Lungs: Clear to auscultation Neuro: Normal speech Psych/Mental Status: Mood NL Assessment Assessment 1. Neck pain and headache in a patient with history of migraine: Improved. Doubt cardiac etiology. Continue supportive care per IM 2. Coronary artery disease s/p coronary artery bypass surgery in 2017. She appears to be clinically stable without any chest pain. Myocardial infarction has been ruled out. Records from [facility] pending. Continue current medical regimen. 3. Elevated BNP level, most probably mild acute on chronic diastolic heart failure. 2-D echo showed LVEF 20-25% with akinetic mid to distal anterior, anteroseptal and apical storey. Continue diuretics orally. 4. CVA: CT scan of the head showed multiple infarcts, probably old. Bubble study did not show any PFO/ASD. Check carotid arterial duplex scan. 5. Hyperlipidemia: Continue statin therapy 6. s/p MV repair: 2-D echo showed severe mitral stenosis with mean gradient 9 mmHg. Defer further workup including SARA to primary casing inspector. Plan Plan of Care Problems Medical Problems: (1) CHF (congestive heart failure) Status: Acute (2) Coronary artery disease Status: Acute (3) Hypokalemia Status: Acute (4) Mitral valve disease Status: Acute (5) Old cerebral infarct without residual deficit Status: Acute (6) Tobacco abuse Status: Acute (7) Tobacco abuse counseling Status: Acute Comment Review of Relevant I have reviewed the following items brandee (where applicable) has been applied. Labs Laboratory Tests Test 07/10/18 04:44 07/10/18 04:45 Sodium Level 137 mmol/L (136-145) Potassium Level 3.9 mmol/L (3.5-5.1) Chloride Level 102 mmol/L (98-107) Carbon Dioxide Level 27 mmol/L (21-32) Anion Gap 8 (6-14) Blood Urea Nitrogen 13 mg/dL (7-20) Creatinine 1.0 mg/dL (0.6-1.0) Estimated GFR (Cockcroft-Gault) 59.4 Glucose Level 84 mg/dL (70-99) Calcium Level 8.8 mg/dL (8.5-10.1) White Blood Count 5.9 x10^3/uL (4.0-11.0) Red Blood Count 3.59 x10^6/uL (3.50-5.40) Hemoglobin 8.4 g/dL (12.0-15.5) Hematocrit 26.8 % (36.0-47.0) Mean Corpuscular Volume 75 fL (79-100) Mean Corpuscular Hemoglobin 23 pg (25-35) Mean Corpuscular Hemoglobin Concent 31 g/dL (31-37) Red Cell Distribution Width 19.5 % (11.5-14.5) Platelet Count 266 x10^3/uL (140-400) Neutrophils (%) (Auto) 53 % (31-73) Lymphocytes (%) (Auto) 31 % (24-48) Monocytes (%) (Auto) 12 % (0-9) Eosinophils (%) (Auto) 3 % (0-3) Basophils (%) (Auto) 2 % (0-3) Neutrophils # (Auto) 3.1 x10^3uL (1.8-7.7) Lymphocytes # (Auto) 1.9 x10^3/uL (1.0-4.8) Monocytes # (Auto) 0.7 x10^3/uL (0.0-1.1) Eosinophils # (Auto) 0.2 x10^3/uL (0.0-0.7) Basophils # (Auto) 0.1 x10^3/uL (0.0-0.2) Vitals/I & O Vital Sign - Last 24 Hours 07/09/18 07/09/18 07/09/18 07/09/18 15:07 15:07 15:22 15:37 Temp 98.4 98.5 98.8 98.5 98.4 98.5 98.8 98.5 Pulse 78 77 88 88 Resp 16 16 18 16 B/P (MAP) 84/50 84/46 (59) 84/50 89/51 Pulse Ox 94 07/09/18 07/09/18 07/09/18 07/09/18 15:52 16:07 16:12 16:37 Temp 98.5 97.8 97.9 98.5 97.8 97.9 Pulse 76 72 72 72 Resp 16 16 16 B/P (MAP) 91/57 76/45 76/46 (56) 80/45 07/09/18 07/09/18 07/09/18 07/09/18 16:47 17:01 17:07 19:48 Temp 98.0 98.2 97.9 98.0 98.2 97.9 Pulse 73 72 70 Resp 16 20 B/P (MAP) 80/48 (59) 81/46 81/46 (58) 98/60 (73) Pulse Ox 96 O2 Delivery Room Air 07/09/18 07/09/18 07/09/18 07/09/18 20:10 20:43 21:43 23:21 Resp 20 18 18 Pulse Ox 96 96 96 O2 Delivery Room Air Room Air Room Air Room Air 07/09/18 07/09/18 07/10/18 07/10/18 23:29 23:51 03:45 07:00 Temp 97.8 97.6 97.9 97.8 97.6 97.9 Pulse 70 76 75 Resp 20 18 20 20 B/P (MAP) 96/54 (68) 122/59 (80) 113/77 (89) Pulse Ox 100 100 97 98 O2 Delivery Room Air Room Air Room Air Room Air 07/10/18 07/10/18 07/10/18 07/10/18 08:10 08:17 08:17 11:05 Temp 97.2 97.2 Pulse 85 77 68 Resp 20 B/P (MAP) 116/68 (84) Pulse Ox 100 O2 Delivery Room Air Room Air Intake and Output 07/09/18 07/09/18 07/10/18 15:00 23:00 07:00 Intake Total 330 ml 740 ml Output Total 600 ml 200 ml Balance -270 ml 540 ml CRISTOPHER CASTILLO MD Jul 10, 2018 11:38
--- NOTE | 2018-07-10 12:35 | PDOC ---
PROGRESS NOTES Chief Complaint Chief Complaint Anemia, Headache, Neck pain History of Present Illness History of Present Illness The patient was sitting comfortably in bed today. Her two cousins were in the room with her. She still complains of a headache. She no longer has chest pain. Vitals Vitals Vital Signs Date Time Temp Pulse Resp B/P (MAP) Pulse Ox O2 Delivery O2 Flow Rate FiO2 07/10/18 11:05 97.2 68 20 116/68 (84) 100 Room Air 97.2 Physical Exam General: Alert, Oriented X3, Cooperative, No acute distress Heart: Regular rate, Normal S1, Normal S2, No murmurs, Other (PSM apex) Lungs: Clear (No wheezes, rales, or rhonchi) Abdomen: Soft, No tenderness, No masses Extremities: No edema, Normal pulses, No tenderness/swelling Skin: No rashes, No breakdown, No significant lesion Labs LABS Laboratory Tests Test 07/10/18 04:44 07/10/18 04:45 Sodium Level 137 mmol/L (136-145) Potassium Level 3.9 mmol/L (3.5-5.1) Chloride Level 102 mmol/L (98-107) Carbon Dioxide Level 27 mmol/L (21-32) Anion Gap 8 (6-14) Blood Urea Nitrogen 13 mg/dL (7-20) Creatinine 1.0 mg/dL (0.6-1.0) Estimated GFR (Cockcroft-Gault) 59.4 Glucose Level 84 mg/dL (70-99) Calcium Level 8.8 mg/dL (8.5-10.1) White Blood Count 5.9 x10^3/uL (4.0-11.0) Red Blood Count 3.59 x10^6/uL (3.50-5.40) Hemoglobin 8.4 g/dL (12.0-15.5) Hematocrit 26.8 % (36.0-47.0) Mean Corpuscular Volume 75 fL (79-100) Mean Corpuscular Hemoglobin 23 pg (25-35) Mean Corpuscular Hemoglobin Concent 31 g/dL (31-37) Red Cell Distribution Width 19.5 % (11.5-14.5) Platelet Count 266 x10^3/uL (140-400) Neutrophils (%) (Auto) 53 % (31-73) Lymphocytes (%) (Auto) 31 % (24-48) Monocytes (%) (Auto) 12 % (0-9) Eosinophils (%) (Auto) 3 % (0-3) Basophils (%) (Auto) 2 % (0-3) Neutrophils # (Auto) 3.1 x10^3uL (1.8-7.7) Lymphocytes # (Auto) 1.9 x10^3/uL (1.0-4.8) Monocytes # (Auto) 0.7 x10^3/uL (0.0-1.1) Eosinophils # (Auto) 0.2 x10^3/uL (0.0-0.7) Basophils # (Auto) 0.1 x10^3/uL (0.0-0.2) Review of Systems Review of Systems Patient denies fevers, chills, N/V, CP, SOB, diarrhea Assessment and Plan Assessmemt and Plan Problems Medical Problems: (1) CHF (congestive heart failure) Status: Acute (2) Coronary artery disease Status: Acute (3) Hypokalemia Status: Acute (4) Mitral valve disease Status: Acute (5) Old cerebral infarct without residual deficit Status: Acute (6) Tobacco abuse Status: Acute (7) Tobacco abuse counseling Status: Acute Assessment: 47-year-old female presented with left-sided neck pain that radiated to her jaw and headache. She stated that the neck pain was similar to the pain she had prior to her CABG. Neck pain radiating to jaw Previous CABG in 2017, mitral valve repair Anemia Recent cerebral infarct HTN HLD Mitral valve disease Smoker, marijuana use Plan: Cardiology work up in progress Troponins negative BNP 3188, chronic diastolic heart failure- get echo Bubble study for recent CVA, awaiting results Carotid artery duplex, awaiting results Statin Lasix Cardiology consult- Pasnoori Tordol 30 IV q6 for migraine PT/OT F/u labs Continue home meds DVT prophylaxis Full code Comment Review of Relevant I have reviewed the following items brandee (where applicable) has been applied. Labs Laboratory Tests Test 07/08/18 19:40 07/08/18 21:10 07/09/18 00:05 07/09/18 03:30 White Blood Count 11.0 x10^3/uL (4.0-11.0) 8.4 x10^3/uL (4.0-11.0) Red Blood Count 3.42 x10^6/uL (3.50-5.40) 3.08 x10^6/uL (3.50-5.40) Hemoglobin 7.5 g/dL (12.0-15.5) 6.8 g/dL (12.0-15.5) Hematocrit 24.8 % (36.0-47.0) 22.5 % (36.0-47.0) Mean Corpuscular Volume 72 fL (79-100) 73 fL (79-100) Mean Corpuscular Hemoglobin 22 pg (25-35) 22 pg (25-35) Mean Corpuscular Hemoglobin Concent 31 g/dL (31-37) 30 g/dL (31-37) Red Cell Distribution Width 18.9 % (11.5-14.5) 18.9 % (11.5-14.5) Platelet Count 289 x10^3/uL (140-400) 262 x10^3/uL (140-400) Neutrophils (%) (Auto) 76 % (31-73) 62 % (31-73) Lymphocytes (%) (Auto) 15 % (24-48) 27 % (24-48) Monocytes (%) (Auto) 7 % (0-9) 9 % (0-9) Eosinophils (%) (Auto) 1 % (0-3) 2 % (0-3) Basophils (%) (Auto) 1 % (0-3) 1 % (0-3) Neutrophils # (Auto) 8.3 x10^3uL (1.8-7.7) 5.2 x10^3uL (1.8-7.7) Lymphocytes # (Auto) 1.7 x10^3/uL (1.0-4.8) 2.2 x10^3/uL (1.0-4.8) Monocytes # (Auto) 0.8 x10^3/uL (0.0-1.1) 0.7 x10^3/uL (0.0-1.1) Eosinophils # (Auto) 0.1 x10^3/uL (0.0-0.7) 0.2 x10^3/uL (0.0-0.7) Basophils # (Auto) 0.1 x10^3/uL (0.0-0.2) 0.1 x10^3/uL (0.0-0.2) Platelet Estimate Adequate (ADEQUATE) Polychromasia Slight Hypochromasia Mod Anisocytosis Slight Microcytosis Slight Ovalocytes Few Prothrombin Time 14.1 SEC (11.7-14.0) Prothromb Time International Ratio 1.1 (0.8-1.1) Sodium Level 137 mmol/L (136-145) 138 mmol/L (136-145) Potassium Level 3.3 mmol/L (3.5-5.1) 3.9 mmol/L (3.5-5.1) Chloride Level 102 mmol/L (98-107) 105 mmol/L (98-107) Carbon Dioxide Level 22 mmol/L (21-32) 25 mmol/L (21-32) Anion Gap 13 (6-14) 8 (6-14) Blood Urea Nitrogen 14 mg/dL (7-20) 12 mg/dL (7-20) Creatinine 1.1 mg/dL (0.6-1.0) 1.0 mg/dL (0.6-1.0) Estimated GFR (Cockcroft-Gault) 53.2 59.4 BUN/Creatinine Ratio 13 (6-20) 12 (6-20) Glucose Level 125 mg/dL (70-99) 86 mg/dL (70-99) Calcium Level 8.6 mg/dL (8.5-10.1) 8.7 mg/dL (8.5-10.1) Total Bilirubin 0.4 mg/dL (0.2-1.0) 0.4 mg/dL (0.2-1.0) Aspartate Amino Transf (AST/SGOT) 15 U/L (15-37) 12 U/L (15-37) Alanine Aminotransferase (ALT/SGPT) 14 U/L (14-59) 13 U/L (14-59) Alkaline Phosphatase 96 U/L (46-116) 87 U/L (46-116) Creatine Kinase 85 U/L (26-192) Troponin I Quantitative 0.031 ng/mL (0.000-0.055) 0.026 ng/mL (0.000-0.055) 0.022 ng/mL (0.000-0.055) VQ-Nzg-F-Type Natriuretic Peptide 3188 pg/mL (0-124) Total Protein 6.9 g/dL (6.4-8.2) 6.2 g/dL (6.4-8.2) Albumin 3.0 g/dL (3.4-5.0) 2.8 g/dL (3.4-5.0) Albumin/Globulin Ratio 0.8 (1.0-1.7) 0.8 (1.0-1.7) Urine Collection Type Unknown Urine Color Yellow Urine Clarity Clear Urine pH 7.0 Urine Specific [place] 1.020 Urine Protein Negative mg/dL (NEG-TRACE) Urine Glucose (UA) Negative mg/dL (NEG) Urine Ketones (Stick) Negative mg/dL (NEG) Urine Blood Negative (NEG) Urine Nitrite Negative (NEG) Urine Bilirubin Negative (NEG) Urine Urobilinogen Dipstick 2.0 mg/dL (0.2 mg/dL) Urine Leukocyte Esterase Negative (NEG) Urine RBC Occ /HPF (0-2) Urine WBC Occ /HPF (0-4) Urine Squamous Epithelial Cells Many /LPF Urine Bacteria 0 /HPF (0-FEW) Urine Mucus Mod /LPF Urine Opiates Screen Neg (NEG) Urine Methadone Screen Neg (NEG) Urine Barbiturates Neg (NEG) Urine Phencyclidine Screen Neg (NEG) Urine Amphetamine/Methamphetamine Neg (NEG) Urine Benzodiazepines Screen Neg (NEG) Urine Cocaine Screen Neg (NEG) Urine Cannabinoids Screen Pos (NEG) Urine Ethyl Alcohol Neg (NEG) Magnesium Level 1.9 mg/dL (1.8-2.4) Test 07/10/18 04:44 07/10/18 04:45 Sodium Level 137 mmol/L (136-145) Potassium Level 3.9 mmol/L (3.5-5.1) Chloride Level 102 mmol/L (98-107) Carbon Dioxide Level 27 mmol/L (21-32) Anion Gap 8 (6-14) Blood Urea Nitrogen 13 mg/dL (7-20) Creatinine 1.0 mg/dL (0.6-1.0) Estimated GFR (Cockcroft-Gault) 59.4 Glucose Level 84 mg/dL (70-99) Calcium Level 8.8 mg/dL (8.5-10.1) White Blood Count 5.9 x10^3/uL (4.0-11.0) Red Blood Count 3.59 x10^6/uL (3.50-5.40) Hemoglobin 8.4 g/dL (12.0-15.5) Hematocrit 26.8 % (36.0-47.0) Mean Corpuscular Volume 75 fL (79-100) Mean Corpuscular Hemoglobin 23 pg (25-35) Mean Corpuscular Hemoglobin Concent 31 g/dL (31-37) Red Cell Distribution Width 19.5 % (11.5-14.5) Platelet Count 266 x10^3/uL (140-400) Neutrophils (%) (Auto) 53 % (31-73) Lymphocytes (%) (Auto) 31 % (24-48) Monocytes (%) (Auto) 12 % (0-9) Eosinophils (%) (Auto) 3 % (0-3) Basophils (%) (Auto) 2 % (0-3) Neutrophils # (Auto) 3.1 x10^3uL (1.8-7.7) Lymphocytes # (Auto) 1.9 x10^3/uL (1.0-4.8) Monocytes # (Auto) 0.7 x10^3/uL (0.0-1.1) Eosinophils # (Auto) 0.2 x10^3/uL (0.0-0.7) Basophils # (Auto) 0.1 x10^3/uL (0.0-0.2) Laboratory Tests Test 07/10/18 04:44 07/10/18 04:45 Sodium Level 137 mmol/L (136-145) Potassium Level 3.9 mmol/L (3.5-5.1) Chloride Level 102 mmol/L (98-107) Carbon Dioxide Level 27 mmol/L (21-32) Anion Gap 8 (6-14) Blood Urea Nitrogen 13 mg/dL (7-20) Creatinine 1.0 mg/dL (0.6-1.0) Estimated GFR (Cockcroft-Gault) 59.4 Glucose Level 84 mg/dL (70-99) Calcium Level 8.8 mg/dL (8.5-10.1) White Blood Count 5.9 x10^3/uL (4.0-11.0) Red Blood Count 3.59 x10^6/uL (3.50-5.40) Hemoglobin 8.4 g/dL (12.0-15.5) Hematocrit 26.8 % (36.0-47.0) Mean Corpuscular Volume 75 fL (79-100) Mean Corpuscular Hemoglobin 23 pg (25-35) Mean Corpuscular Hemoglobin Concent 31 g/dL (31-37) Red Cell Distribution Width 19.5 % (11.5-14.5) Platelet Count 266 x10^3/uL (140-400) Neutrophils (%) (Auto) 53 % (31-73) Lymphocytes (%) (Auto) 31 % (24-48) Monocytes (%) (Auto) 12 % (0-9) Eosinophils (%) (Auto) 3 % (0-3) Basophils (%) (Auto) 2 % (0-3) Neutrophils # (Auto) 3.1 x10^3uL (1.8-7.7) Lymphocytes # (Auto) 1.9 x10^3/uL (1.0-4.8) Monocytes # (Auto) 0.7 x10^3/uL (0.0-1.1) Eosinophils # (Auto) 0.2 x10^3/uL (0.0-0.7) Basophils # (Auto) 0.1 x10^3/uL (0.0-0.2) Medications Current Medications Acetaminophen/ Hydrocodone Bitart (Lortab 5/325) 1 tab 1X ONCE PO Last administered on 07/08/18at 21:05; Start 07/08/18 at 21:15; Stop 07/08/18 at 21:16; Status DC Potassium Chloride (Klor-Con) 40 meq 1X ONCE PO Last administered on 07/08/18at 21:06; Start 07/08/18 at 21:15; Stop 07/08/18 at 21:16; Status DC Atorvastatin Calcium (Lipitor) 40 mg HS PO Last administered on 07/09/18at 20:41; Start 07/08/18 at 22:00 Carvedilol (Coreg) 3.125 mg BIDWMEALS PO Last administered on 07/10/18at 08:17; Start 07/09/18 at 08:00 Furosemide (Lasix) 40 mg DAILY PO Last administered on 07/10/18 08:18; Start 07/09/18 at 09:00 Potassium Chloride (Klor-Con) 10 meq DAILY PO Last administered on 07/10/18 08:17; Start 07/09/18 at 09:00 Duloxetine HCl (Cymbalta) 20 mg DAILY PO Last administered on 07/10/18 08:18; Start 07/09/18 at 09:00 Hydroxychloroquine Sulfate (Plaquenil) 200 mg BID PO Last administered on 08:17; Start 07/09/18 at 09:00 Levetiracetam (Keppra) 250 mg BID PO Last administered on 07/10/18 08:18; Start 07/08/18 at 23:00 Lisinopril (Prinivil) 2.5 mg DAILY PO Last administered on 07/10/18 08:17; Start 07/09/18 at 09:00 Mycophenolate Mofetil (Cellcept) 500 mg BID PO Last administered on 07/10/18 08:17; Start 07/08/18 at 23:00 Prednisone (Prednisone) 2.5 mg DAILY PO Last administered on 07/10/18 08:18; Start 07/09/18 at 09:00 Tizanidine HCl (Zanaflex) 4 mg TID PO Last administered on 07/10/18 08:16; Start 07/08/18 at 23:00 Morphine Sulfate (Morphine Sulfate) 4 mg PRN Q2HR PRN IV SEVERE PAIN Last administered on 07/09/18 23:21; Start 07/08/18 at 23:00 Lorazepam (Ativan) 1 mg PRN Q6HRS PRN PO ANXIETY / AGITATION Last administered on 07/09/18 10:58; Start 07/08/18 at 23:00 Oxycodone/ Acetaminophen (Percocet 5/325) 1 tab PRN Q4HRS PRN PO PAIN Last administered on 07/09/18 20:43; Start 07/09/18 at 10:45 Active Scripts Active Reported Tizanidine Hcl 4 Mg Tablet 1 Tab PO TID Prednisone 2.5 Mg Tablet 1 Tab PO DAILY Potassium Chloride 10 Meq Tab.sr.24h 10 Meq PO DAILY Cellcept (Mycophenolate Mofetil) 500 Mg Tablet 1 Tab PO BID Lisinopril 2.5 Mg Tablet 1 Tab PO DAILY Keppra Xr (Levetiracetam) 500 Mg Tab.er.24h 500 Mg PO DAILY Hydroxychloroquine Sulfate 200 Mg Tablet 200 Mg PO BID Furosemide 40 Mg Tablet 1 Tab PO DAILY Cymbalta (Duloxetine Hcl) 20 Mg Capsule. 1 Cap PO DAILY Coreg (Carvedilol) 3.125 Mg Tablet 3.125 Mg PO BIDWMEALS Atorvastatin Calcium 40 Mg Tablet 40 Mg PO HS Vitals/I & O Vital Sign - Last 24 Hours 07/09/18 07/09/18 07/09/18 07/09/18 15:07 15:07 15:22 15:37 Temp 98.4 98.5 98.8 98.5 98.4 98.5 98.8 98.5 Pulse 78 77 88 88 Resp 16 16 18 16 B/P (MAP) 84/50 84/46 (59) 84/50 89/51 Pulse Ox 94 07/09/18 07/09/18 07/09/18 07/09/18 15:52 16:07 16:12 16:37 Temp 98.5 97.8 97.9 98.5 97.8 97.9 Pulse 76 72 72 72 Resp 16 16 16 B/P (MAP) 91/57 76/45 76/46 (56) 80/45 07/09/18 07/09/18 07/09/18 07/09/18 16:47 17:01 17:07 19:48 Temp 98.0 98.2 97.9 98.0 98.2 97.9 Pulse 73 72 70 Resp 16 20 B/P (MAP) 80/48 (59) 81/46 81/46 (58) 98/60 (73) Pulse Ox 96 O2 Delivery Room Air 07/09/18 07/09/18 07/09/18 07/09/18 20:10 20:43 21:43 23:21 Resp 20 18 18 Pulse Ox 96 96 96 O2 Delivery Room Air Room Air Room Air Room Air 07/09/18 07/09/18 07/10/18 07/10/18 23:29 23:51 03:45 07:00 Temp 97.8 97.6 97.9 97.8 97.6 97.9 Pulse 70 76 75 Resp 20 18 20 20 B/P (MAP) 96/54 (68) 122/59 (80) 113/77 (89) Pulse Ox 100 100 97 98 O2 Delivery Room Air Room Air Room Air Room Air 07/10/18 07/10/18 07/10/18 07/10/18 08:10 08:17 08:17 11:05 Temp 97.2 97.2 Pulse 85 77 68 Resp 20 B/P (MAP) 116/68 (84) Pulse Ox 100 O2 Delivery Room Air Room Air Intake and Output 07/09/18 07/09/18 07/10/18 14:59 22:59 06:59 Intake Total 330 ml 740 ml Output Total 600 ml 200 ml Balance -270 ml 540 ml YAYO LINDSAY III DO Jul 10, 2018 12:35
[2018-07-10] MEDS: KETOROLAC 30 MG/ML VIAL. IV PRN ×2 (13:10→21:11)
--- NOTE | 2018-07-10 17:37 | CARD ---
MR#: [id number] Date of Study: 07/10/2018 Ordering Physician: CRISTOPHER CASTILLO, Referring Physician: JORGE A MICHAEL Tech: Noy Plata RDCS APPROVED REPORT EXAM: Two-dimensional and M-mode echocardiogram with Doppler and color Doppler. Other Information Quality : Good Rhythm : NSR INDICATION CVA/TIA Cardiac Disease: CAD Echo Enhancing Agent Agent/Amount Used: Agitated Saline 8mL 2D DIMENSIONS RVDd2.2 (2.9-3.5cm)Left Atrium(2D)4.4 (1.6-4.0cm) IVSd1.2 (0.7-1.1cm)Aortic Root(2D)2.3 (2.0-3.7cm) LVDd5.7 (3.9-5.9cm)LVOT Diameter1.9 (1.8-2.4cm) PWd1.1 (0.7-1.1cm)LVDs5.2 (2.5-4.0cm) FS (%) 8.7 %SV29.8 ml LVEF(%)19.0 (>50%) Aortic Valve AoV Peak Irvin.111.6cm/sAoV VTI18.7cm AO Peak GR.5.0mmHgLVOT VTI 16.96cm AO Mean GR.3mmHgAVA (VTI)2.50cm2 Mitral Valve MV E Iwzwmqmp942.5cm/sMV E Peak Gr.23mmHg MV DECEL [id number] A Uofddwcy66.0cm/s MV E Mean Gr.9mmHgE/A Ratio2.6 TDI Lateral E' P. V3.54cm/sMedial E' P. V3.67cm/s E/Lateral E'54.4E/Medial E'52.5 Tricuspid Valve TR P. [id number]/sRAP [id number] TR Peak Gr.[id number] LEFT VENTRICLE The left ventricle is normal size. There is mild asymmetric septal hypertrophy. Akinetic mid to dista l anterior and anteroseptal storey and the apical wall. The Ejection Fraction is 20-25%. RIGHT VENTRICLE The right ventricle is mildly dilated. The right ventricular systolic function is normal. ATRIA The left atrium is mildly dilated. The right atrium is mildly dilated. The interatrial septum is inta ct with no evidence for an atrial septal defect or patent foramen ovale as noted on 2-D or Doppler im aging. Injection of bubbles documented no interatrial shunt. AORTIC VALVE The aortic valve is calcified but opens well. Doppler and Color Flow revealed no significant aortic r egurgitation. There is no significant aortic valvular stenosis. MITRAL VALVE The mitral valve has been repaired in the past. There is no evidence of mitral valve prolapse. There is severe mitral valve stenosis. Calculated mitral valve area is 0.6 cm2 with maximum pressure gradie nt of 22 mmHg and mean pressure gradient of 9 mmHg. Doppler and Color-flow revealed mild eccentric mi tral regurgitation. TRICUSPID VALVE The tricuspid valve is normal in structure and function. Doppler and Color Flow revealed moderate to severe tricuspid regurgitation. There is moderate pulmonary hypertension. The PA pressure was estimat ed at 53 mmHg. There is no tricuspid valve stenosis. PULMONIC VALVE The pulmonary valve is normal in structure and function. Doppler and Color Flow revealed mild pulmoni c valvular regurgitation. There is no pulmonic valvular stenosis. GREAT VESSELS The aortic root is normal in size. The ascending aorta is normal in size. The IVC is normal in size a nd collapses >50% with inspiration. PERICARDIAL EFFUSION There is no evidence of significant pericardial effusion. Critical Notification Critical Value: No <Conclusion> Akinetic mid to distal anterior and anteroseptal storey and the apical wall. The Ejection Fraction is 20-25%. s/p MV repair with severe mitral valve stenosis and mean pressure gradient of 9 mmHg. Mild eccentric mitral regurgitation. Moderate to severe tricuspid regurgitation. There is moderate pulmonary hypertension. The PA pressure was estimated at 53 mmHg. There is no evidence of significant pericardial effusion. Injection of bubbles documented no interatrial shunt. Signed by : Cristopher Castillo, Electronically Approved : 07/10/2018 17:37:02
[2018-07-10] MEDS: diphenhydrAMINE HCL 25 MG CAPSULE PO PRN (18:12)
[2018-07-10] MEDS: oxyCODONE/APAP 5/325 1 TAB TABLET PO PRN (18:12)
[2018-07-10] MEDS: ATORVASTATIN CALCIUM 40 MG TABLET. PO SCH (21:09)
[2018-07-10] MEDS: LORazepam 1 MG TABLET PO PRN (21:11)
[2018-07-11] MEDS: oxyCODONE/APAP 5/325 1 TAB TABLET PO PRN ×2 (00:37→09:09)
[2018-07-11] MEDS: diphenhydrAMINE HCL 25 MG CAPSULE PO PRN ×2 (00:37→09:09)
[2018-07-11 03:45] VITALS: BP 97/63
[2018-07-11 06:38] LABS: BASO # 0.1 x10^3/uL (0.0-0.2); BASO % 1 % (0-3); EOS # 0.3 x10^3/uL (0.0-0.7); EOS % 4 % (0-3); HEMOGLOBIN 8.6 g/dL (12.0-15.5); LYMPH # 1.8 x10^3/uL (1.0-4.8); LYMPH % 28 % (24-48); MEAN CORPUSCULAR HEMOGLOBIN 23 pg (25-35); MEAN CORPUSCULAR HGB CONC 31 g/dL (31-37); MEAN CORPUSCULAR VOLUME 74 fL (79-100); MONO # 0.7 x10^3/uL (0.0-1.1); MONO % 10 % (0-9); NEUT # 3.7 x10^3uL (1.8-7.7); NEUT % 57 % (31-73); PLATELET COUNT 261 x10^3/uL (140-400); RED BLOOD COUNT 3.76 x10^6/uL (3.50-5.40); RED CELL DISTRIBUTION WIDTH 19.9 % (11.5-14.5); WHITE BLOOD COUNT 6.5 x10^3/uL (4.0-11.0)
[2018-07-11 06:52] LABS: CALCIUM 8.7 mg/dL (8.5-10.1); CREATININE 1.3 mg/dL (0.6-1.0); GFR 43.9
[2018-07-11 07:00] VITALS: BP 106/67
--- NOTE | 2018-07-11 07:45 | PDOC ---
PROGRESS NOTES Chief Complaint Chief Complaint Anemia Neck pain and headache in a patient with history of migraine: Improved. Doubt cardiac etiology. Continue supportive care, with give compazine prn Coronary artery disease s/p coronary artery bypass surgery in 2017. No chest pain. Myocardial infarction has been ruled out Elevated BNP level, most probably mild acute on chronic diastolic heart failure. 2-D echo showed LVEF 20-25% with akinetic mid to distal anterior, anteroseptal and apical storey. Continue diuretics orally. CVA: CT scan of the head showed multiple infarcts, probably old, likely related to her h/o Lupus. Bubble study did not show any PFO/ASD. Check carotid arterial duplex scan. SLE - cont meds and rheum f/u Hyperlipidemia: Continue statin therapy s/p MV repair: 2-D echo showed severe mitral stenosis with mean gradient 9 m mHg. Defer further workup including SRAA to primary decating machine operator. History of Present Illness History of Present Illness The patient was sitting comfortably in bed today. Her two cousins were in the room with her. She still complains of a headache. She no longer has chest pain. Anemia improved with blood transfusion. Echo: EF 25% with MVR noted She does wish to go home today. Vitals Vitals Vital Signs Date Time Temp Pulse Resp B/P (MAP) Pulse Ox O2 Delivery O2 Flow Rate FiO2 07/11/18 03:45 97.7 57 18 97/63 (74) 98 Room Air 97.7 Physical Exam General: Alert, Oriented X3, Cooperative, No acute distress Heart: Regular rate, Normal S1, Normal S2, No murmurs, Other (PSM apex) Lungs: Clear (No wheezes, rales, or rhonchi) Abdomen: Soft, No tenderness, No masses Extremities: No edema, Normal pulses, No tenderness/swelling Skin: No rashes, No breakdown, No significant lesion Labs LABS Laboratory Tests Test 07/11/18 06:30 White Blood Count 6.5 x10^3/uL (4.0-11.0) Red Blood Count 3.76 x10^6/uL (3.50-5.40) Hemoglobin 8.6 g/dL (12.0-15.5) Hematocrit 28.0 % (36.0-47.0) Mean Corpuscular Volume 74 fL (79-100) Mean Corpuscular Hemoglobin 23 pg (25-35) Mean Corpuscular Hemoglobin Concent 31 g/dL (31-37) Red Cell Distribution Width 19.9 % (11.5-14.5) Platelet Count 261 x10^3/uL (140-400) Neutrophils (%) (Auto) 57 % (31-73) Lymphocytes (%) (Auto) 28 % (24-48) Monocytes (%) (Auto) 10 % (0-9) Eosinophils (%) (Auto) 4 % (0-3) Basophils (%) (Auto) 1 % (0-3) Neutrophils # (Auto) 3.7 x10^3uL (1.8-7.7) Lymphocytes # (Auto) 1.8 x10^3/uL (1.0-4.8) Monocytes # (Auto) 0.7 x10^3/uL (0.0-1.1) Eosinophils # (Auto) 0.3 x10^3/uL (0.0-0.7) Basophils # (Auto) 0.1 x10^3/uL (0.0-0.2) Sodium Level 133 mmol/L (136-145) Potassium Level 4.0 mmol/L (3.5-5.1) Chloride Level 98 mmol/L (98-107) Carbon Dioxide Level 27 mmol/L (21-32) Anion Gap 8 (6-14) Blood Urea Nitrogen 16 mg/dL (7-20) Creatinine 1.3 mg/dL (0.6-1.0) Estimated GFR (Cockcroft-Gault) 43.9 Glucose Level 82 mg/dL (70-99) Calcium Level 8.7 mg/dL (8.5-10.1) Assessment and Plan Assessmemt and Plan Problems Medical Problems: (1) CHF (congestive heart failure) Status: Acute (2) Coronary artery disease Status: Acute (3) Hypokalemia Status: Acute (4) Mitral valve disease Status: Acute (5) Old cerebral infarct without residual deficit Status: Acute (6) Tobacco abuse Status: Acute (7) Tobacco abuse counseling Status: Acute Comment Review of Relevant I have reviewed the following items brandee (where applicable) has been applied. Labs Laboratory Tests Test 07/10/18 04:44 07/10/18 04:45 07/11/18 06:30 Sodium Level 137 mmol/L (136-145) 133 mmol/L (136-145) Potassium Level 3.9 mmol/L (3.5-5.1) 4.0 mmol/L (3.5-5.1) Chloride Level 102 mmol/L (98-107) 98 mmol/L (98-107) Carbon Dioxide Level 27 mmol/L (21-32) 27 mmol/L (21-32) Anion Gap 8 (6-14) 8 (6-14) Blood Urea Nitrogen 13 mg/dL (7-20) 16 mg/dL (7-20) Creatinine 1.0 mg/dL (0.6-1.0) 1.3 mg/dL (0.6-1.0) Estimated GFR (Cockcroft-Gault) 59.4 43.9 Glucose Level 84 mg/dL (70-99) 82 mg/dL (70-99) Calcium Level 8.8 mg/dL (8.5-10.1) 8.7 mg/dL (8.5-10.1) White Blood Count 5.9 x10^3/uL (4.0-11.0) 6.5 x10^3/uL (4.0-11.0) Red Blood Count 3.59 x10^6/uL (3.50-5.40) 3.76 x10^6/uL (3.50-5.40) Hemoglobin 8.4 g/dL (12.0-15.5) 8.6 g/dL (12.0-15.5) Hematocrit 26.8 % (36.0-47.0) 28.0 % (36.0-47.0) Mean Corpuscular Volume 75 fL (79-100) 74 fL (79-100) Mean Corpuscular Hemoglobin 23 pg (25-35) 23 pg (25-35) Mean Corpuscular Hemoglobin Concent 31 g/dL (31-37) 31 g/dL (31-37) Red Cell Distribution Width 19.5 % (11.5-14.5) 19.9 % (11.5-14.5) Platelet Count 266 x10^3/uL (140-400) 261 x10^3/uL (140-400) Neutrophils (%) (Auto) 53 % (31-73) 57 % (31-73) Lymphocytes (%) (Auto) 31 % (24-48) 28 % (24-48) Monocytes (%) (Auto) 12 % (0-9) 10 % (0-9) Eosinophils (%) (Auto) 3 % (0-3) 4 % (0-3) Basophils (%) (Auto) 2 % (0-3) 1 % (0-3) Neutrophils # (Auto) 3.1 x10^3uL (1.8-7.7) 3.7 x10^3uL (1.8-7.7) Lymphocytes # (Auto) 1.9 x10^3/uL (1.0-4.8) 1.8 x10^3/uL (1.0-4.8) Monocytes # (Auto) 0.7 x10^3/uL (0.0-1.1) 0.7 x10^3/uL (0.0-1.1) Eosinophils # (Auto) 0.2 x10^3/uL (0.0-0.7) 0.3 x10^3/uL (0.0-0.7) Basophils # (Auto) 0.1 x10^3/uL (0.0-0.2) 0.1 x10^3/uL (0.0-0.2) Laboratory Tests Test 07/11/18 06:30 White Blood Count 6.5 x10^3/uL (4.0-11.0) Red Blood Count 3.76 x10^6/uL (3.50-5.40) Hemoglobin 8.6 g/dL (12.0-15.5) Hematocrit 28.0 % (36.0-47.0) Mean Corpuscular Volume 74 fL (79-100) Mean Corpuscular Hemoglobin 23 pg (25-35) Mean Corpuscular Hemoglobin Concent 31 g/dL (31-37) Red Cell Distribution Width 19.9 % (11.5-14.5) Platelet Count 261 x10^3/uL (140-400) Neutrophils (%) (Auto) 57 % (31-73) Lymphocytes (%) (Auto) 28 % (24-48) Monocytes (%) (Auto) 10 % (0-9) Eosinophils (%) (Auto) 4 % (0-3) Basophils (%) (Auto) 1 % (0-3) Neutrophils # (Auto) 3.7 x10^3uL (1.8-7.7) Lymphocytes # (Auto) 1.8 x10^3/uL (1.0-4.8) Monocytes # (Auto) 0.7 x10^3/uL (0.0-1.1) Eosinophils # (Auto) 0.3 x10^3/uL (0.0-0.7) Basophils # (Auto) 0.1 x10^3/uL (0.0-0.2) Sodium Level 133 mmol/L (136-145) Potassium Level 4.0 mmol/L (3.5-5.1) Chloride Level 98 mmol/L (98-107) Carbon Dioxide Level 27 mmol/L (21-32) Anion Gap 8 (6-14) Blood Urea Nitrogen 16 mg/dL (7-20) Creatinine 1.3 mg/dL (0.6-1.0) Estimated GFR (Cockcroft-Gault) 43.9 Glucose Level 82 mg/dL (70-99) Calcium Level 8.7 mg/dL (8.5-10.1) Medications Current Medications Acetaminophen/ Hydrocodone Bitart (Lortab 5/325) 1 tab 1X ONCE PO Last administered on 07/08/18at 21:05; Start 07/08/18 at 21:15; Stop 07/08/18 at 21:16; Status DC Potassium Chloride (Klor-Con) 40 meq 1X ONCE PO Last administered on 07/08/18 21:06; Start 07/08/18 at 21:15; Stop 07/08/18 at 21:16; Status DC Atorvastatin Calcium (Lipitor) 40 mg HS PO Last administered on 07/10/18 21:09; Start 07/08/18 at 22:00 Carvedilol (Coreg) 3.125 mg BIDWMEALS PO Last administered on 07/10/18 21:10; Start 07/09/18 at 08:00 Furosemide (Lasix) 40 mg DAILY PO Last administered on 07/10/18 08:18; Start 07/09/18 at 09:00 Potassium Chloride (Klor-Con) 10 meq DAILY PO Last administered on 07/10/18 08:17; Start 07/09/18 at 09:00 Duloxetine HCl (Cymbalta) 20 mg DAILY PO Last administered on 07/10/18 08:18; Start 07/09/18 at 09:00 Hydroxychloroquine Sulfate (Plaquenil) 200 mg BID PO Last administered on 07/10/18 21:09; Start 07/09/18 at 09:00 Levetiracetam (Keppra) 250 mg BID PO Last administered on 07/10/18 21:09; Start 07/08/18 at 23:00 Lisinopril (Prinivil) 2.5 mg DAILY PO Last administered on 07/10/18 08:17; Start 07/09/18 at 09:00 Mycophenolate Mofetil (Cellcept) 500 mg BID PO Last administered on 07/10/18 21:09; Start 07/08/18 at 23:00 Prednisone (Prednisone) 2.5 mg DAILY PO Last administered on 07/10/18 08:18; Start 07/09/18 at 09:00 Tizanidine HCl (Zanaflex) 4 mg TID PO Last administered on 07/10/18 21:10; Start 07/08/18 at 23:00 Morphine Sulfate (Morphine Sulfate) 4 mg PRN Q2HR PRN IV SEVERE PAIN Last administered on 07/09/18 23:21; Start 07/08/18 at 23:00 Lorazepam (Ativan) 1 mg PRN Q6HRS PRN PO ANXIETY / AGITATION Last administered on 07/10/18 21:11; Start 07/08/18 at 23:00 Oxycodone/ Acetaminophen (Percocet 5/325) 1 tab PRN Q4HRS PRN PO PAIN Last administered on 07/11/18 00:37; Start 07/09/18 at 10:45 Ketorolac Tromethamine (Toradol 30mg Vial) 30 mg PRN Q6HRS PRN IV MILD PAIN Last administered on 07/10/18 21:11; Start 07/10/18 at 12:45; Stop 07/15/18 at 12:44 Diphenhydramine HCl (Benadryl) 25 mg PRN Q6HRS PRN PO ITCHING Last administered on 07/11/18 00:37; Start 07/10/18 at 17:45 Active Scripts Active Reported Tizanidine Hcl 4 Mg Tablet 1 Tab PO TID Prednisone 2.5 Mg Tablet 1 Tab PO DAILY Potassium Chloride 10 Meq Tab.sr.24h 10 Meq PO DAILY Cellcept (Mycophenolate Mofetil) 500 Mg Tablet 1 Tab PO BID Lisinopril 2.5 Mg Tablet 1 Tab PO DAILY Keppra Xr (Levetiracetam) 500 Mg Tab.er.24h 500 Mg PO DAILY Hydroxychloroquine Sulfate 200 Mg Tablet 200 Mg PO BID Furosemide 40 Mg Tablet 1 Tab PO DAILY Cymbalta (Duloxetine Hcl) 20 Mg Capsule. 1 Cap PO DAILY Coreg (Carvedilol) 3.125 Mg Tablet 3.125 Mg PO BIDWMEALS Atorvastatin Calcium 40 Mg Tablet 40 Mg PO HS Vitals/I & O Vital Sign - Last 24 Hours 07/10/18 07/10/18 07/10/18 07/10/18 08:10 08:17 08:17 11:05 Temp 97.2 97.2 Pulse 85 77 68 Resp 20 B/P (MAP) 116/68 (84) Pulse Ox 100 O2 Delivery Room Air Room Air 07/10/18 07/10/18 07/10/18 07/10/18 15:38 17:32 19:45 20:20 Temp 98.1 97.7 98.1 97.7 Pulse 64 71 69 Resp 20 18 B/P (MAP) 84/48 (60) 121/65 (83) 106/65 (79) Pulse Ox 98 99 O2 Delivery Room Air Room Air Room Air 07/10/18 07/10/18 07/11/18 07/11/18 21:10 23:50 00:37 01:37 Temp 97.8 97.8 Pulse 69 64 Resp 18 18 18 B/P (MAP) 106/65 102/58 (73) Pulse Ox 98 98 98 O2 Delivery Room Air Room Air Room Air 07/11/18 03:45 Temp 97.7 97.7 Pulse 57 Resp 18 B/P (MAP) 97/63 (74) Pulse Ox 98 O2 Delivery Room Air Intake and Output 07/10/18 07/10/18 07/11/18 14:59 22:59 06:59 Intake Total 400 ml 700 ml 500 ml Output Total 1200 ml 500 ml Balance -800 ml 700 ml 0 ml Images Akinetic mid to distal anterior and anteroseptal storey and the apical wall. The Ejection Fraction is 20-25%. s/p MV repair with severe mitral valve stenosis and mean pressure gradient of 9 mmHg. Mild eccentric mitral regurgitation. Moderate to severe tricuspid regurgitation. There is moderate pulmonary hypertension. The PA pressure was estimated at 53 mmHg. There is no evidence of significant pericardial effusion. Injection of bubbles documented no interatrial shunt. RYDER MARIN MD Jul 11, 2018 07:45
[2018-07-11] MEDS: DULoxetine HCL 20 MG CAPSULE.DR PO SCH (09:04)
[2018-07-11] MEDS: POTASSIUM CHLORIDE 10 MEQ TABLET.ER. PO SCH (09:04)
[2018-07-11] MEDS: MYCOPHENOLATE MOFETIL 250 MG CAPSULE. PO SCH (09:04)
[2018-07-11] MEDS: predniSONE 5 MG TABLET PO SCH (09:04)
[2018-07-11] MEDS: levETIRAcetam 250 MG TABLET PO SCH (09:05)
[2018-07-11] MEDS: LISINOPRIL 5 MG TABLET. PO SCH (09:05)
[2018-07-11] MEDS: FUROSEMIDE 40 MG TABLET. PO SCH (09:05)
[2018-07-11] MEDS: tiZANidine 4 MG TABLET. PO SCH ×2 (09:06→14:00)
[2018-07-11] MEDS: HYDROXYCHLOROQUINE 200 MG TABLET PO SCH (09:06)
[2018-07-11] MEDS: CARVEDILOL 3.125 MG TABLET. PO SCH (09:06)
--- NOTE | 2018-07-11 10:57 | NUR ---
SW reviewed pt's medical chart and evaluated for potential dc needs. Pt is from home with family and was admitted for neck pain, headache, and anemia. Pt is on room air, PT recommends home health, and OT is pending. SW will continue to follow and arrange home health services if ordered upon dc.
[2018-07-11 11:00] VITALS: BP 86/51
[2018-07-11] MEDS ORDERED: SUMAtriptan SUCCINATE 25 MG TABLET PO PRN (11:00)
--- NOTE | 2018-07-11 11:10 | RAD ---
Carotid ultrasound, 07/09/2018: HISTORY: CVA Duplex evaluation of the carotid arteries and neck was performed including grayscale, color-flow and spectral Doppler analysis. There is mild smooth plaquing at both carotid bifurcations. There is minimal plaque calcification. The peak systolic velocity in the right internal carotid artery is 88 cm per sec with an end-diastolic velocity of 35 cm/s and an internal carotid to common carotid artery ratio of 0.9. The peak systolic velocity in the left internal carotid artery is 104 cm per sec with an end-diastolic velocity of 49 cm/s and an internal carotid to common carotid artery ratio 1.0. These Doppler findings suggest luminal narrowing in the 0-50 percent diameter range bilaterally. Antegrade flow is present in both vertebral arteries in the neck. IMPRESSION: Mild atherosclerotic plaquing at both carotid bifurcations with underlying luminal narrowing in the 0-50 percent diameter range bilaterally. Note: Stenosis calculations for CT, MRA and conventional angiography are based upon determination of the distal ICA diameter in accordance with the NASCET methodology. Stenosis calculations for Doppler studies are derived from validated velocity criteria which are known to correlate with NASCET methodology of determining stenosis. Electronically signed by: Onur Gill MD (07/11/2018 11:08 AM) [facility]
[2018-07-11] MEDS ORDERED: PROCHLORPERAZINE 10 MG/2 ML VIAL. IV ONE (11:30)
[2018-07-11] MEDS ORDERED: PROCHLORPERAZINE 5 MG TABLET. PO PRN (11:30)
[2018-07-11 15:00] VITALS: BP 84/52
[2018-07-11] MEDS ORDERED: HYDR200T5 PO (16:01)
[2018-07-11] MEDS ORDERED: PROC5TAB14 PO (16:01)
[2018-07-11] MEDS ORDERED: LORA-434 PO (16:01)
--- NOTE | 2018-07-11 16:03 | PDOC3 ---
[facility]-Discharge Summary Date of Admission: Date of Admission: Jul 10, 2018 Date of Discharge: Date of Discharge: Jul 11, 2018 Admission Diagnosis: Admitting Diagnosis: Acute anemia Acute CHF exacerbation Headache Discharge Diagnosis: Discharge Diagnosis: Acute anemia Acute CHF exacerbation Headache Consults: Consults: Cardiology Hospital Course: Hospital Course: Ms Mallory is a 47yo F w/ PMHx CAD s/p CABG x6 (07/2016), Mitral stenosis s/p valv repair (07/2016), HTN, HLD, Cerebral aneursym (5mm), Prior CVA, Pulm HTN, ischemic cardiomyopathy EF 20-25%, smoker, cortical blindness (s/p occiptal CVA), and SLE who was admitted with chest pain and acute anemia. She no longer has chest pain. Anemia improved with blood transfusion. She does have chronic headaches and she is being worked up for antiphospholipid antibody syndrome (on ASA 325mg daily) and was likely going to start warfarin soon after a likely mitral valve repair and cerebral aneurysm repair. She had an Echo: EF 25% with MVR noted. Seen by cardiology ok for safe discharge to home. S/p left renal biopsy at [facility] 2 weeks ago, apparently stage III lupus nephrosclerosis, has f/u with Dr. Sal Christianson to discuss her continuing care. Anemia - possibly 2/2 recent renal biopsy, chronic disease from lupus Neck pain and headache in a patient with history of migraine: Improved. Doubt cardiac etiology. Continue supportive care, with give compazine prn Coronary artery disease s/p coronary artery bypass surgery in 2017. No chest pain. Myocardial infarction has been ruled out Elevated BNP level, most probably mild acute on chronic diastolic heart failure. 2-D echo showed LVEF 20-25% with akinetic mid to distal anterior, anteroseptal and apical storey. Continue diuretics orally. CVA: CT scan of the head showed multiple infarcts, probably old, likely related to her h/o Lupus. Bubble study did not show any PFO/ASD. Checked carotid arterial duplex scan. Antiphospholipid antibody syndrome - likely etiology of her prior CVAs, should consider warfarin outpatient with her specialists, back on ASA 325mg daily SLE - cont meds and rheum f/u Hyperlipidemia: Continue statin therapy s/p MV repair: 2-D echo showed severe mitral stenosis with mean gradient 9 mmHg. Defer further workup including SARA to primary equine manager. Greater than 30 minutes spent on discharge Disposition: Disposition/Orders: D/C to Home w/ HH Activity: Activity: Resume previous activity Diet: Diet: Renal Medications: Home Meds Reported Medications Tizanidine Hcl (TIZANIDINE HCL) 4 Mg Tablet, 1 TAB PO TID, #90 TAB 07/08/18 Prednisone (PREDNISONE) 2.5 Mg Tablet, 1 TAB PO DAILY, #30 TAB 3 Refills 07/08/18 Potassium Chloride (POTASSIUM CHLORIDE) 10 Meq Tab.sr.24h, 10 MEQ PO DAILY, TAB.SR 07/08/18 Mycophenolate Mofetil (CELLCEPT) 500 Mg Tablet, 1 TAB PO BID, #180 TAB 3 Refills 07/08/18 Lisinopril (LISINOPRIL) 2.5 Mg Tablet, 1 TAB PO DAILY, #30 TAB 5 Refills 07/08/18 Levetiracetam (KEPPRA XR) 500 Mg Tab.er.24h, 500 MG PO DAILY, TAB.SR 07/08/18 Hydroxychloroquine Sulfate (HYDROXYCHLOROQUINE SULFATE) 200 Mg Tablet, 200 MG PO BID, TAB 07/08/18 Furosemide (FUROSEMIDE) 40 Mg Tablet, 1 TAB PO DAILY, #30 TAB 5 Refills 07/08/18 Duloxetine Hcl (CYMBALTA) 20 Mg Capsule.dr, 1 CAP PO DAILY, #30 CAP 2 Refills 07/08/18 Carvedilol (COREG ) 3.125 Mg Tablet, 3.125 MG PO BIDWMEALS for CARDIAC, TAB 07/08/18 Atorvastatin Calcium (ATORVASTATIN CALCIUM) 40 Mg Tablet, 40 MG PO HS for FOR CHOLESTEROL, #30 TAB 0 Refills 07/08/18 Scheduled Atorvastatin Calcium (Atorvastatin Calcium), 40 MG PO HS, (Reported) Carvedilol (Coreg ), 3.125 MG PO BIDWMEALS, (Reported) Duloxetine Hcl (Cymbalta), 1 CAP PO DAILY, (Reported) Furosemide (Furosemide), 1 TAB PO DAILY, (Reported) Hydroxychloroquine Sulfate (Hydroxychloroquine Sulfate), 200 MG PO BID, (Reported) Levetiracetam (Keppra Xr), 500 MG PO DAILY, (Reported) Lisinopril (Lisinopril), 1 TAB PO DAILY, (Reported) Mycophenolate Mofetil (Cellcept), 1 TAB PO BID, (Reported) Potassium Chloride (Potassium Chloride), 10 MEQ PO DAILY, (Reported) Prednisone (Prednisone), 1 TAB PO DAILY, (Reported) Tizanidine Hcl (Tizanidine Hcl), 1 TAB PO TID, (Reported) RYDER MARIN MD Jul 11, 2018 16:03
--- NOTE | 2018-07-11 16:05 | SNU/HH DC ---
DISCHARGE WITH HOME HEALTH DISCHARGE INFORMATION: Discharge Date: Jul 11, 2018 Final Diagnosis: Problems Medical Problems: (1) CHF (congestive heart failure) Status: Acute (2) Coronary artery disease Status: Acute (3) Hypokalemia Status: Acute (4) Mitral valve disease Status: Acute (5) Old cerebral infarct without residual deficit Status: Acute (6) Tobacco abuse Status: Acute (7) Tobacco abuse counseling Status: Acute Condition on Discharge: Stable CODE STATUS: Code Status: Full HOME HEALTH: Face to Face: I certify this patient is under my care and that I, or a nurse practitioner or physician's microbiology lab assistant working with me, had a face to face encounter that meets the physician face to face encounter requirements with this patient on 07/11/2018. Medical Complications: CABG, CHF, CVA, Other (Systemic Lupus Erythematosus) Custodial For: Assess & Educate Safety, Assess/Skilled Observatio, Medication Management RN For Eval/Treatment: Yes Physical Therapy For: Evalulation/Treatment Occupational Therapy For: Evaluation/Treatment Home Health Aide For: Self-care Pt Meets Homebound Status: Unsteady balance w/ amb, POST DISCHARGE ORDERS: Activity Instructions for Disc: No restrictions Weight Bearing Status after Di: No restrictions DIET AFTER DISCHARGE: Renal CHECKS AFTER DISCHARGE: Checks after discharge: Check blood press - daily, Check your Temp as needed, Weigh Yourself Daily FOLLOW-UP: Follow up with: Dr. Christianson TREATMENT/EQUIPMENT ORDERS: Adaptive Equipment Issued: None CERTIFICATION STATEMENT: Certification Statement: Certification Statement: Based on the above finding, I certify that this patient is confined to the home and needs intermittent fdc care, physical therapy and/or speech therapy, or continues to need occupational therapy.~ This patient is under my care, and I have initiated the establishment of the plan of care.~ This patient will be followed by myself or a community physician who will periodically review the plan of care. Home Meds Active Scripts Prochlorperazine Maleate (PROCHLORPERAZINE MALEATE) 10 Mg Tablet, 5 MG PO PRN Q6HRS PRN for Headache for 10 Days, #24 TAB Prov:RYDER MARIN MD 07/11/18 Lorazepam (ATIVAN) 1 Mg Tablet, 1 MG PO PRN QHS PRN for ANXIETY / AGITATION for 6 Days, #6 TAB Prov:RYDER MARIN MD 07/11/18 Hydroxychloroquine Sulfate (HYDROXYCHLOROQUINE SULFATE) 200 Mg Tablet, 200 MG PO BID for Lupus for 30 Days, #60 TAB 2 Refills Prov:RYDER MARIN MD 07/11/18 Reported Medications Tizanidine Hcl (TIZANIDINE HCL) 4 Mg Tablet, 1 TAB PO TID, #90 TAB 07/08/18 Prednisone (PREDNISONE) 2.5 Mg Tablet, 1 TAB PO DAILY, #30 TAB 3 Refills 07/08/18 Potassium Chloride (POTASSIUM CHLORIDE) 10 Meq Tab.sr.24h, 10 MEQ PO DAILY, TAB.SR 07/08/18 Mycophenolate Mofetil (CELLCEPT) 500 Mg Tablet, 1 TAB PO BID, #180 TAB 3 Refills 07/08/18 Lisinopril (LISINOPRIL) 2.5 Mg Tablet, 1 TAB PO DAILY, #30 TAB 5 Refills 07/08/18 Levetiracetam (KEPPRA XR) 500 Mg Tab.er.24h, 500 MG PO DAILY, TAB.SR 07/08/18 Furosemide (FUROSEMIDE) 40 Mg Tablet, 1 TAB PO DAILY, #30 TAB 5 Refills 07/08/18 Duloxetine Hcl (CYMBALTA) 20 Mg Capsule.dr, 1 CAP PO DAILY, #30 CAP 2 Refills 07/08/18 Carvedilol (COREG ) 3.125 Mg Tablet, 3.125 MG PO BIDWMEALS for CARDIAC, TAB 07/08/18 Atorvastatin Calcium (ATORVASTATIN CALCIUM) 40 Mg Tablet, 40 MG PO HS for FOR CHOLESTEROL, #30 TAB 0 Refills 07/08/18 RYDER MARIN MD Jul 11, 2018 16:05
--- NOTE | 2018-07-11 17:11 | NUR ---
Discharge: Teaching verbal and written. Reviewed medication, follow-up, ECHO. CP, Migraines, Anemia, Blood transfusion, ect. Patient verbalized understanding. Patient legally blind. All teaching verbalized and written copy sent with family. 3 written prescriptions given to patient. All belongings with patient. IV removed without complications, catheter tip in-tact. Waiting on patients mother to pick her up.
--- NOTE | 2018-07-11 21:37 | PDOC ---
PROGRESS NOTES Subjective Subjective Neck pain improved Objective Objective Vital Signs Date Time Temp Pulse Resp B/P (MAP) Pulse Ox O2 Delivery O2 Flow Rate FiO2 07/11/18 15:00 98.0 70 18 84/52 (63) 100 Room Air 98.0 Intake and Output 07/11/18 07:00 Intake Total 1600 ml Output Total 1700 ml Balance -100 ml Intake Oral 1600 ml Output Urine Total 1700 ml Physical Exam Abdomen: Soft, No tenderness, No masses Heart: Regular rate, Normal S1, Normal S2, No murmurs, Other (PSM apex) Extremities: No edema, Normal pulses, No tenderness/swelling General: Alert, Oriented X3, Cooperative, No acute distress HEENT: Atraumatic, PERRLA Lungs: Clear to auscultation Neuro: Normal speech Psych/Mental Status: Mood NL Skin: No rashes, No breakdown, No significant lesion Assessment Assessment 1. Neck pain and headache in a patient with history of migraine: Improved. Doubt cardiac etiology. Continue supportive care per IM 2. Coronary artery disease s/p coronary artery bypass surgery in 2017. She appears to be clinically stable without any chest pain. Myocardial infarction has been ruled out. Continue current medical regimen. 3. Elevated BNP level, most probably mild acute on chronic diastolic heart failure. 2-D echo showed LVEF 20-25% with akinetic mid to distal anterior, anteroseptal and apical storey. Continue diuretics orally. Defer the issue of AICD implantation to primary bulk station operator 4. CVA: CT scan of the head showed multiple infarcts, probably old. Bubble study did not show any PFO/ASD. Check carotid arterial duplex scan. 5. Hyperlipidemia: Continue statin therapy 6. s/p MV repair: 2-D echo showed severe mitral stenosis with mean gradient 9 mmHg. Defer further workup including SARA to primary bulk station operator. Plan Plan of Care Problems Medical Problems: (1) CHF (congestive heart failure) Status: Acute (2) Coronary artery disease Status: Acute (3) Hypokalemia Status: Acute (4) Mitral valve disease Status: Acute (5) Old cerebral infarct without residual deficit Status: Acute (6) Tobacco abuse Status: Acute (7) Tobacco abuse counseling Status: Acute Comment Review of Relevant I have reviewed the following items brandee (where applicable) has been applied. Labs Laboratory Tests Test 07/11/18 06:30 White Blood Count 6.5 x10^3/uL (4.0-11.0) Red Blood Count 3.76 x10^6/uL (3.50-5.40) Hemoglobin 8.6 g/dL (12.0-15.5) Hematocrit 28.0 % (36.0-47.0) Mean Corpuscular Volume 74 fL (79-100) Mean Corpuscular Hemoglobin 23 pg (25-35) Mean Corpuscular Hemoglobin Concent 31 g/dL (31-37) Red Cell Distribution Width 19.9 % (11.5-14.5) Platelet Count 261 x10^3/uL (140-400) Neutrophils (%) (Auto) 57 % (31-73) Lymphocytes (%) (Auto) 28 % (24-48) Monocytes (%) (Auto) 10 % (0-9) Eosinophils (%) (Auto) 4 % (0-3) Basophils (%) (Auto) 1 % (0-3) Neutrophils # (Auto) 3.7 x10^3uL (1.8-7.7) Lymphocytes # (Auto) 1.8 x10^3/uL (1.0-4.8) Monocytes # (Auto) 0.7 x10^3/uL (0.0-1.1) Eosinophils # (Auto) 0.3 x10^3/uL (0.0-0.7) Basophils # (Auto) 0.1 x10^3/uL (0.0-0.2) Sodium Level 133 mmol/L (136-145) Potassium Level 4.0 mmol/L (3.5-5.1) Chloride Level 98 mmol/L (98-107) Carbon Dioxide Level 27 mmol/L (21-32) Anion Gap 8 (6-14) Blood Urea Nitrogen 16 mg/dL (7-20) Creatinine 1.3 mg/dL (0.6-1.0) Estimated GFR (Cockcroft-Gault) 43.9 Glucose Level 82 mg/dL (70-99) Calcium Level 8.7 mg/dL (8.5-10.1) Medications Current Medications Prochlorperazine Edisylate (Compazine) 10 mg 1X ONCE IV Last administered on 07/11/18at 11:57; Start 07/11/18 at 11:30; Stop 07/11/18 at 11:31; Status DC Prochlorperazine Maleate (Compazine) 5 mg PRN Q6HRS PRN PO NAUSEA/VOMITING; Start 07/11/18 at 11:30; Stop 07/11/18 at 19:02; Status DC Sumatriptan Succinate (Imitrex) 25 mg PRN Q2HR PRN PO MIGRAINE HEADACHE; Start 07/11/18 at 11:00; Stop 07/11/18 at 11:29; Status DC Vitals/I & O Vital Sign - Last 24 Hours 07/10/18 07/11/18 07/11/18 07/11/18 23:50 00:37 01:37 03:45 Temp 97.8 97.7 97.8 97.7 Pulse 64 57 Resp 18 18 18 18 B/P (MAP) 102/58 (73) 97/63 (74) Pulse Ox 98 98 98 98 O2 Delivery Room Air Room Air Room Air Room Air 07/11/18 07/11/18 07/11/18 07/11/18 07:00 08:15 09:05 09:06 Temp 97.3 97.3 Pulse 67 72 71 Resp 18 B/P (MAP) 106/67 (80) Pulse Ox 97 O2 Delivery Room Air Room Air 07/11/18 07/11/18 11:00 15:00 Temp 97.5 98.0 97.5 98.0 Pulse 60 70 Resp 18 18 B/P (MAP) 86/51 (63) 84/52 (63) Pulse Ox 100 100 O2 Delivery Room Air Room Air Intake and Output 07/10/18 07/10/18 07/11/18 15:00 23:00 07:00 Intake Total 400 ml 700 ml 500 ml Output Total 1200 ml 500 ml Balance -800 ml 700 ml 0 ml CRISTOPHER CASTILLO MD Jul 11, 2018 21:37
== END 2018-07-11 19:01 | disposition home or self-care (01) | DRG 640 ==
LOC: EDBD 19:28 → ER 19:28 → 2 SOUTH 20:37 → OBSVTOIN 07-10 12:00
PROVIDERS: ADMIT Internal Medicine; ATTEND Internal Medicine
PROC: 30233N1 Transfusion of Nonautologous Red Blood Cells into Peripheral Vein, Percutaneous Approach (ICD-10-PCS; principal; 2018-07-10)
DX: E87.6 Hypokalemia (principal); I50.33 Acute on chronic diastolic (congestive) heart failure; D68.61 Antiphospholipid syndrome; I11.0 Hypertensive heart disease with heart failure; D63.8 Anemia in other chronic diseases classified elsewhere; E78.5 Hyperlipidemia, unspecified; F12.90 Cannabis use, unspecified, uncomplicated; F17.210 Nicotine dependence, cigarettes, uncomplicated; G31.9 Degenerative disease of nervous system, unspecified; G43.909 Migraine, unspecified, not intractable, without status migrainosus; I05.0 Rheumatic mitral stenosis; I25.10 Atherosclerotic heart disease of native coronary artery without angina pectoris; I25.5 Ischemic cardiomyopathy; I25.2 Old myocardial infarction; M32.9 Systemic lupus erythematosus, unspecified; Z79.82 Long term (current) use of aspirin; Z82.49 Family history of ischemic heart disease and other diseases of the circulatory system; Z86.73 Personal history of transient ischemic attack (TIA), and cerebral infarction without residual deficits; Z95.5 Presence of coronary angioplasty implant and graft; Z95.1 Presence of aortocoronary bypass graft; Z79.899 Other long term (current) drug therapy
CPT/HCPCS: 36415; 70450; 71045; 80048; 80053; 80307; 81001; 82550; 83735; 83880; 84484; 85025; 85610; 86850; 86870; 86900; 86901; 86902; 86922; 93005; 93306; 93880; G0378; G0379; J0780; J1885; J2270; J7512; J7517; P9016; Q0163; 97116; 99285-25

== ENCOUNTER 2019-04-14 21:45 | Inpatient (IN) | payer BC, MEDICARE ==
[~2019-04-14] VITALS: Ht 157.5 cm; Wt 51.1 kg
[~2019-04-14 21:45] MED LIST: ATOR40TA59 PO; CARV3.12 PO; DULO20CA PO; FURO40TA4 PO; HYDR200T5 PO; LEVE500T57 PO; LISI2.5T PO; LORA-434 PO; MYCO500T PO; POTA10TA12 PO; PRED2.5T PO; PROC5TAB14 PO; TIZA4TAB2 PO
[2019-04-14 22:46] LABS: BASO # 0.1 x10^3/uL (0.0-0.2); BASO % 1 % (0-3); EOS # 0.2 x10^3/uL (0.0-0.7); EOS % 2 % (0-3); HEMATOCRIT 27.6 % (36.0-47.0); HEMOGLOBIN 8.6 g/dL (12.0-15.5); LYMPH # 1.6 x10^3/uL (1.0-4.8); LYMPH % 21 % (24-48); MEAN CORPUSCULAR HEMOGLOBIN 22 pg (25-35); MEAN CORPUSCULAR HGB CONC 31 g/dL (31-37); MEAN CORPUSCULAR VOLUME 70 fL (79-100); MONO # 0.5 x10^3/uL (0.0-1.1); MONO % 7 % (0-9); NEUT # 5.4 x10^3/uL (1.8-7.7); NEUT % 70 % (31-73); PLATELET COUNT 153 x10^3/uL (140-400); RED BLOOD COUNT 3.96 x10^6/uL (3.50-5.40); RED CELL DISTRIBUTION WIDTH 19.8 % (11.5-14.5); WHITE BLOOD COUNT 7.8 x10^3/uL (4.0-11.0)
[2019-04-14 23:04] LABS: CALCIUM 8.8 mg/dL (8.5-10.1); CREATININE 1.1 mg/dL (0.6-1.0); POTASSIUM 3.3 mmol/L (3.5-5.1)
[2019-04-14 23:05] LABS: ANISOCYTOSIS MOD; HYPOCHROMIA SLIGHT; OVALOCYTES OCC; PLT ESTIMATE ADEQUATE (ADEQUATE); POIKILOCYTOSIS SLIGHT
[2019-04-14 23:10] LABS: ALBUMIN 3.1 g/dL (3.4-5.0); ALBUMIN/GLOBULIN RATIO 0.8 (1.0-1.7); TOTAL BILIRUBIN 0.5 mg/dL (0.2-1.0); TOTAL PROTEIN 7.2 g/dL (6.4-8.2)
[2019-04-14 23:22] LABS: BILIRUBIN,URINE NEGATIVE (NEG); CLARITY,URINE CLEAR; COLOR,URINE YELLOW; NITRITE,URINE NEGATIVE (NEG); PROTEIN,URINE NEGATIVE (NEG-TRACE)
--- NOTE | 2019-04-14 23:22 | PHYS DOC ---
Past Medical History Past Medical History: Anxiety, Depression, MD, Seizure, Stroke, TIA, Other Additional Past Medical Histor: LUPUS Past Surgical History: Coronary Bypass Surgery, Other Additional Past Surgical Histo: 2X STENT PLACEMENT, CARDIAC BYPASS X 6 Alcohol Use: Rarely Drug Use: Marijuana Adult General Chief Complaint Chief Complaint: SHORTNESS OF BREATH HPI HPI 48-year-old female with extensive past medical history including CABG 3, leaky valve, history of CVA, hypertension, seizure disorder presents to the emergency Department complaints of shortness of breath over the last 3 days. She is well describes left leg swelling starting last night. She denies any chest pain, nausea or vomiting. Patient states she is on Coumadin however have had difficulty reaching therapeutic levels. She complains of headache, similar to her migraines. Patient is legally blind. She follows up with Cardiology and CTS at [facility]. Nothing makes her symptoms worse, nothing makes her symptoms better. Review of Systems Review of Systems Constitutional: Denies fever or chills [] Respiratory: SOB Cardiovascular: No additional information not addressed in HPI [] GI: Denies abdominal pain, nausea, vomiting, bloody stools or diarrhea [] Musculoskeletal: Denies back pain or joint pain [] Integument: Denies rash or skin lesions [] Neurologic: + headache, no focal weakness or sensory changes [] All other systems were reviewed and found to be within normal limits, except as documented in this note. Current Medications Current Medications Current Medications Medications (Trade) Dose Ordered Sig/Doretha Start Time Stop Time Status Last Admin Dose Admin Diphenhydramine HCl (Benadryl) 25 mg 1X ONCE 04/14/19 23:30 04/14/19 23:31 DC 04/14/19 23:39 25 MG Enoxaparin Sodium (Lovenox 80mg Syringe) 80 mg 1X ONCE 04/15/19 00:30 04/15/19 00:31 DC 04/15/19 00:41 80 MG Furosemide (Lasix) 40 mg 1X ONCE 04/15/19 00:30 04/15/19 00:31 DC 04/15/19 00:42 40 MG Ketorolac Tromethamine (Toradol 30mg Vial) 30 mg 1X ONCE 04/14/19 23:30 04/14/19 23:31 DC 04/14/19 23:39 30 MG Metoclopramide HCl (Reglan Vial) 10 mg 1X ONCE 04/14/19 23:30 04/14/19 23:31 DC 04/14/19 23:38 10 MG Potassium Chloride (Klor-Con) 40 meq 1X ONCE 04/15/19 00:30 04/15/19 00:31 DC 04/15/19 00:39 40 MEQ Allergies Allergies Allergies Coded Allergies Type Severity Reaction Last Updated Verified No Known Drug Allergies 07/08/18 No Physical Exam Physical Exam Constitutional: Well developed, well nourished, no acute distress, non-toxic appearance. [] HENT: Normocephalic, atraumatic, bilateral external ears normal, oropharynx moist, no oral exudates, nose normal. [] Eyes: PERRLA, EOMI, conjunctiva normal, no discharge. [] Neck: Normal range of motion, no tenderness, supple, no stridor. [] Cardiovascular:Heart rate regular rhythm, no murmur [] Lungs & Thorax: Bilateral breath sounds clear to auscultation [] Abdomen: Bowel sounds normal, soft, no tenderness, no masses, no pulsatile masses. [] Skin: Warm, dry, no erythema, no rash. [] Back: No tenderness, no CVA tenderness. [] Extremities: No tenderness, no cyanosis, no clubbing, ROM intact, no edema. [] Neurologic: Alert and oriented X 3, normal motor function, normal sensory function, no focal deficits noted. [] Psychologic: Affect normal, judgement normal, mood normal. [] Current Patient Data Vital Signs Vital Signs Date Time Temp Pulse Resp B/P (MAP) Pulse Ox O2 Delivery O2 Flow Rate FiO2 04/14/19 23:49 72 21 114/61 (78) 98 Room Air 04/14/19 21:58 97.4 97.4 Lab Values Laboratory Tests Test 04/14/19 22:40 04/14/19 23:13 White Blood Count 7.8 x10^3/uL (4.0-11.0) Red Blood Count 3.96 x10^6/uL (3.50-5.40) Hemoglobin 8.6 g/dL (12.0-15.5) L Hematocrit 27.6 % (36.0-47.0) L Mean Corpuscular Volume 70 fL (79-100) L Mean Corpuscular Hemoglobin 22 pg (25-35) L Mean Corpuscular Hemoglobin Concent 31 g/dL (31-37) Red Cell Distribution Width 19.8 % (11.5-14.5) H Platelet Count 153 x10^3/uL (140-400) Neutrophils (%) (Auto) 70 % (31-73) Lymphocytes (%) (Auto) 21 % (24-48) L Monocytes (%) (Auto) 7 % (0-9) Eosinophils (%) (Auto) 2 % (0-3) Basophils (%) (Auto) 1 % (0-3) Neutrophils # (Auto) 5.4 x10^3/uL (1.8-7.7) Lymphocytes # (Auto) 1.6 x10^3/uL (1.0-4.8) Monocytes # (Auto) 0.5 x10^3/uL (0.0-1.1) Eosinophils # (Auto) 0.2 x10^3/uL (0.0-0.7) Basophils # (Auto) 0.1 x10^3/uL (0.0-0.2) Platelet Estimate Adequate (ADEQUATE) Hypochromasia Slight Poikilocytosis Slight Anisocytosis Mod Ovalocytes Occ Prothrombin Time 13.4 SEC (11.7-14.0) Prothrombin Time INR 1.1 (0.8-1.1) D-Dimer (Aida) 0.74 ug/mlFEU (0.00-0.50) H Sodium Level 140 mmol/L (136-145) Potassium Level 3.3 mmol/L (3.5-5.1) L Chloride Level 105 mmol/L (98-107) Carbon Dioxide Level 24 mmol/L (21-32) Anion Gap 11 (6-14) Blood Urea Nitrogen 18 mg/dL (7-20) Creatinine 1.1 mg/dL (0.6-1.0) H Estimated GFR (Cockcroft-Gault) 53.0 BUN/Creatinine Ratio 16 (6-20) Glucose Level 96 mg/dL (70-99) Calcium Level 8.8 mg/dL (8.5-10.1) Total Bilirubin 0.5 mg/dL (0.2-1.0) Aspartate Amino Transferase (AST) 17 U/L (15-37) Alanine Aminotransferase (ALT) 19 U/L (14-59) Alkaline Phosphatase 92 U/L (46-116) Troponin I Quantitative 0.021 ng/mL (0.000-0.055) US-Zaz-Z-Type Natriuretic Peptide 5930 pg/mL (0-124) H Total Protein 7.2 g/dL (6.4-8.2) Albumin 3.1 g/dL (3.4-5.0) L Albumin/Globulin Ratio 0.8 (1.0-1.7) L Urine Collection Type Unknown Urine Color Yellow Urine Clarity Clear Urine pH 7.0 Urine Specific [place] <=1.005 Urine Protein Negative mg/dL (NEG-TRACE) Urine Glucose (UA) Negative mg/dL (NEG) Urine Ketones (Stick) Negative mg/dL (NEG) Urine Blood Negative (NEG) Urine Nitrite Negative (NEG) Urine Bilirubin Negative (NEG) Urine Urobilinogen Dipstick 1.0 mg/dL (0.2 mg/dL) Urine Leukocyte Esterase Negative (NEG) Urine RBC 0 /HPF (0-2) Urine WBC Occ /HPF (0-4) Urine Squamous Epithelial Cells Few /LPF Urine Bacteria 0 /HPF (0-FEW) Laboratory Tests 04/14/19 22:40 Laboratory Tests 04/14/19 22:40 EKG EKG KG reviewed interpretation time 2201, normal sinus rhythm, left axis deviation, no STEMI, heart rate 82[] Radiology/Procedures Radiology/Procedures [facility] [address] [place], [place] [id number] IMAGING REPORT Signed PATIENT: NATALIIA HARRIS ACCOUNT: [id number] : 1970 LOCATION: ER AGE: 48 SEX: F EXAM STATUS: REG ER ORD. PHYSICIAN: AUGUSTINE GRAY MD REASON: dyspnea PROCEDURE: PORTABLE CHEST 1V EXAM: CHEST 1 VIEW History: Dyspnea COMPARISON: 07/08/2018 TECHNIQUE: Single portable radiograph of the chest FINDINGS: Mild cardiomegaly. Mild diffuse prominent bilateral interstitial lung markings likely interstitial infiltrates or edema. The costophrenic sulci are clear and well demarcated. IMPRESSION: 1. Diffuse prominent bilateral interstitial lung markings likely interstitial infiltrates or mild congestive changes. Electronically signed by: Pascual Botello MD (04/14/2019 11:28 PM) [id number] DICTATED and SIGNED BY: PASCUAL BOTELLO MD DATE: 04/14/19 2328 [] Course & Med Decision Making Course & Med Decision Making Pertinent Labs and Imaging studies reviewed. (See chart for details) []48-year-old female with extensive past medical history including CABG 3, leaky valve, history of CVA, hypertension, seizure disorder presents to the emergency Department complaints of shortness of breath over the last 3 days. She is well describes left leg swelling starting last night. She denies any chest pain, nausea or vomiting. Patient states she is on Coumadin however have had difficulty reaching therapeutic levels. She complains of headache, similar to her migraines. Patient is legally blind. She follows up with Cardiology and CTS at [facility]. Nothing makes her symptoms worse, nothing makes her symptoms better. Laboratories reviewed, potassium 3.3, BNP 5930, dimer 0.74, troponin 0.0-1 Lasix 40 mg IV 1, potassium 40 mg once by mouth 1 INR is subtherapeutic, patient will receive Lovenox 1.5 mg/kg 1 Doppler of left lower extremity to rule out DVT - negative Commend admit further observation with troponin trend, continue diuresis, cardiology consultation. Request records from [facility] in the a.m. Leila Disclaimer Leila Disclaimer This electronic medical record was generated, in whole or in part, using a voice recognition dictation system. Departure Departure Impression: Primary Impression: Acute CHF Additional Impressions: Hypokalemia Subtherapeutic anticoagulation Anemia Disposition: ADMITTED INPATIENT Admitting Physician: HIMKonstantin Condition: STABLE Referrals: UNKNOWN PCP NAME (PCP) Critical Care Time Critical care time was 35 minutes exclusive of procedures. Problem Qualifiers Primary Impression: Acute CHF Heart failure type: unspecified Qualified Codes: I50.9 - Heart failure, unspecified Additional Impressions: Anemia Anemia type: unspecified type Qualified Codes: D64.9 - Anemia, unspecified AUGUSTINE GRAY MD Apr 14, 2019 23:22
[2019-04-14 23:26] LABS: BACTERIA,URINE 0 /HPF (0-FEW); RBC,URINE 0 /HPF (0-2); SQUAMOUS EPITHELIAL CELL,UR FEW /LPF; WBC,URINE OCC /HPF (0-4)
[2019-04-14] MEDS ORDERED: diphenhydrAMINE 50 MG/ML VIAL IVP ONE (23:30)
[2019-04-14] MEDS ORDERED: KETOROLAC 30 MG/ML VIAL. IVP ONE (23:30)
[2019-04-14] MEDS ORDERED: METOCLOPRAMIDE HCL 10 MG/2 ML VIAL. IVP ONE (23:30)
--- NOTE | 2019-04-14 23:30 | RAD ---
EXAM: CHEST 1 VIEW History: Dyspnea COMPARISON: 07/08/2018 TECHNIQUE: Single portable radiograph of the chest FINDINGS: Mild cardiomegaly. Mild diffuse prominent bilateral interstitial lung markings likely interstitial infiltrates or edema. The costophrenic sulci are clear and well demarcated. IMPRESSION: 1. Diffuse prominent bilateral interstitial lung markings likely interstitial infiltrates or mild congestive changes. Electronically signed by: Pascual Botello MD (04/14/2019 11:28 PM) [id number]
[2019-04-14 23:35] LABS: PROTHROMBIN TIME PATIENT 13.4 SEC (11.7-14.0)
[2019-04-15] VITALS (7 sets, daily range): BP systolic 75–119; BP diastolic 45–82
[2019-04-15] MEDS ORDERED: POTASSIUM CHLORIDE 20 MEQ TABLET.ER. PO ONE (00:30)
[2019-04-15] MEDS ORDERED: FUROSEMIDE 40 MG/4 ML VIAL. IVP ONE (00:30)
[2019-04-15] MEDS ORDERED: ACETAMINOPHEN 325 MG TABLET. PO PRN (01:15)
[2019-04-15] MEDS ORDERED: ONDANSETRON PF 4 MG/2 ML VIAL. IV PRN (01:15)
--- NOTE | 2019-04-15 01:32 | RAD ---
CLINICAL HISTORY: Left lower extremity edema COMPARISON: None available. TECHNIQUE: Ultrasound evaluation of the left lower extremity was performed from the groin to the upper calf with middleton scale, spectral and color doppler evaluation. FINDINGS: The left common femoral vein, and femoral vein, including the saphenous-femoral junction are normal in appearance. Color and spectral Doppler evaluation demonstrates normal spontaneous flow, augmentation and phasicity. The left popliteal vein and visualized calf veins also demonstrate normal compressibility and flow. Small cystic structure in the left popliteal fossa. IMPRESSION: No evidence for DVT in the left lower extremity. Small cystic structure in the left popliteal fossa, possibly Fernández's cyst. Electronically signed by: Rodriguez Zacarias MD (04/15/2019 1:30 AM) [place] [id number]
[2019-04-15] MEDS ORDERED: TRAZ-118 PO (02:10)
[2019-04-15] MEDS ORDERED: PRED5TAB PO (02:33)
[2019-04-15] MEDS ORDERED: KETOROLAC 30 MG/ML VIAL. IVP ONE (04:00)
[2019-04-15] MEDS ORDERED: PROCHLORPERAZINE 5 MG TABLET. PO PRN (10:30)
--- NOTE | 2019-04-15 10:34 | PDOC2 ---
CARDIOLOGY CONSULT NOTE CHEIF COMPLAINT: Shortness of breath HPI: 48-year-old woman with severe systolic heart failure and multiple cardiovascular comorbidities present with worsening shortness of breath. She has not had any follow-up with her primary fly fishing guide at [facility] over a year. She does not minimal medical therapy as noted. Since admission she was received Lasix and appears to have some improvement in her symptoms. She otherwise denies any syncope, orthopnea, PND but does endorse lower extremity edema PMHX: 1. Coronary artery disease status post 6 vessel bypass in 2017 2. Severe valvular heart disease status post mitral valve ring 3. Severe tricuspid regurgitation 4. Chronic marijuana use 5. History of lupus 6. Prior history of what appears to be antiphospholipid antibody syndrome and patient is on anticoagulation with warfarin. SOCHX: She is currently from her . She has 4 children. She is moving in with her mother. Denies any other illicit drug use except marijuana. FAMHX: Noncontributory CURRENT MEDS: Current Medications Medications (Trade) Dose Ordered Sig/Doretha Route PRN Reason Start Time Stop Time Status Last Admin Dose Admin Ketorolac Tromethamine (Toradol 30mg Vial) 30 mg 1X ONCE IVP 04/14/19 23:30 04/14/19 23:31 DC 04/14/19 23:39 Metoclopramide HCl (Reglan Vial) 10 mg 1X ONCE IVP 04/14/19 23:30 04/14/19 23:31 DC 04/14/19 23:38 Diphenhydramine HCl (Benadryl) 25 mg 1X ONCE IVP 04/14/19 23:30 04/14/19 23:31 DC 04/14/19 23:39 Enoxaparin Sodium (Lovenox 80mg Syringe) 80 mg 1X ONCE SQ 04/15/19 00:30 04/15/19 00:31 DC 04/15/19 00:41 Furosemide (Lasix) 40 mg 1X ONCE IVP 04/15/19 00:30 04/15/19 00:31 DC 04/15/19 00:42 Potassium Chloride (Klor-Con) 40 meq 1X ONCE PO 04/15/19 00:30 04/15/19 00:31 DC 04/15/19 00:39 Ketorolac Tromethamine (Toradol 30mg Vial) 30 mg 1X ONCE IVP 04/15/19 04:00 04/15/19 04:01 DC 04/15/19 03:37 ALLERGIES: Allergies Coded Allergies Type Severity Reaction Last Updated Verified No Known Drug Allergies 07/08/18 No ROS: Negative unless otherwise mentioned above in history of present illness PHYSICAL EXAM: Vital Signs/I&O: Vital Signs Date Time Temp Pulse Resp B/P (MAP) Pulse Ox O2 Delivery O2 Flow Rate FiO2 04/15/19 07:00 97.5 67 24 99/67 (78) 99 Room Air 97.5 I & O 04/14/19 04/14/19 04/15/19 15:00 23:00 07:00 Intake Total 700 ml Balance 700 ml Physical Exam: The patient appeared well nourished and normally developed. Head exam is unremarkable. No scleral icterus or corneal arcus noted. Neck is without jugular venous distension, thyromegaly, or carotid bruits. Carotid upstrokes are brisk bilaterally. Lungs are clear to auscultation and percussion. Cardiac exam reveals the the PMI to be laterally displaced. She has a diastolic and systolic murmur at the apex and left sternal border. Abdominal exam reveals normal bowel sounds, no masses, no organomegaly and no aortic enlargement. Extremities are nonedematous and both femoral and pedal pulses are normal. Msk: No traumua Neuro: No focal deficits DIAGNOSTIC TESTING: Labs reviewed and BNP elevated Cardiac enzymes negative EKG is unremarkable Previous echocardiogram from June 2018 revealed severe LV systolic dysfunction, severe pulmonary hypertension and severe valvular heart disease including mitral stenosis and tricuspid regurgitation with ejection fraction of 25% Lab Laboratory Tests Test 04/14/19 22:40 04/14/19 23:13 White Blood Count 7.8 x10^3/uL (4.0-11.0) Red Blood Count 3.96 x10^6/uL (3.50-5.40) Hemoglobin 8.6 g/dL (12.0-15.5) L Hematocrit 27.6 % (36.0-47.0) L Mean Corpuscular Volume 70 fL (79-100) L Mean Corpuscular Hemoglobin 22 pg (25-35) L Mean Corpuscular Hemoglobin Concent 31 g/dL (31-37) Red Cell Distribution Width 19.8 % (11.5-14.5) H Platelet Count 153 x10^3/uL (140-400) Neutrophils (%) (Auto) 70 % (31-73) Lymphocytes (%) (Auto) 21 % (24-48) L Monocytes (%) (Auto) 7 % (0-9) Eosinophils (%) (Auto) 2 % (0-3) Basophils (%) (Auto) 1 % (0-3) Neutrophils # (Auto) 5.4 x10^3/uL (1.8-7.7) Lymphocytes # (Auto) 1.6 x10^3/uL (1.0-4.8) Monocytes # (Auto) 0.5 x10^3/uL (0.0-1.1) Eosinophils # (Auto) 0.2 x10^3/uL (0.0-0.7) Basophils # (Auto) 0.1 x10^3/uL (0.0-0.2) Platelet Estimate Adequate (ADEQUATE) Hypochromasia Slight Poikilocytosis Slight Anisocytosis Mod Ovalocytes Occ Prothrombin Time 13.4 SEC (11.7-14.0) Prothromb Time International Ratio 1.1 (0.8-1.1) D-Dimer (Aida) 0.74 ug/mlFEU (0.00-0.50) H Sodium Level 140 mmol/L (136-145) Potassium Level 3.3 mmol/L (3.5-5.1) L Chloride Level 105 mmol/L (98-107) Carbon Dioxide Level 24 mmol/L (21-32) Anion Gap 11 (6-14) Blood Urea Nitrogen 18 mg/dL (7-20) Creatinine 1.1 mg/dL (0.6-1.0) H Estimated GFR (Cockcroft-Gault) 53.0 BUN/Creatinine Ratio 16 (6-20) Glucose Level 96 mg/dL (70-99) Calcium Level 8.8 mg/dL (8.5-10.1) Total Bilirubin 0.5 mg/dL (0.2-1.0) Aspartate Amino Transf (AST/SGOT) 17 U/L (15-37) Alkaline Phosphatase 92 U/L (46-116) Total Protein 7.2 g/dL (6.4-8.2) Albumin 3.1 g/dL (3.4-5.0) L Albumin/Globulin Ratio 0.8 (1.0-1.7) L Urine Collection Type Unknown Urine Color Yellow Urine Clarity Clear Urine pH 7.0 Urine Specific [place] <=1.005 Urine Protein Negative mg/dL (NEG-TRACE) Urine Glucose (UA) Negative mg/dL (NEG) Urine Ketones (Stick) Negative mg/dL (NEG) Urine Blood Negative (NEG) Urine Nitrite Negative (NEG) Urine Bilirubin Negative (NEG) Urine Urobilinogen Dipstick 1.0 mg/dL (0.2 mg/dL) Urine Leukocyte Esterase Negative (NEG) Urine RBC 0 /HPF (0-2) Urine WBC Occ /HPF (0-4) Urine Squamous Epithelial Cells Few /LPF Urine Bacteria 0 /HPF (0-FEW) Laboratory Tests 04/14/19 22:40 ASSESSMENT: 1. Acute on chronic systolic congestive heart failure 2. Severe valvular heart disease PLAN: 1. Plan for reinitiation of her home therapy including carvedilol, aspirin, lisinopril and continue Lasix intravenous therapy 2. If she feels better overnight into tomorrow may be discharged on those medications and follow with her primary fly fishing guide at [facility]. Supportive care for now. JEREMIAH VALDERRAMA MD Apr 15, 2019 10:34
[2019-04-15] MEDS ORDERED: FUROSEMIDE 20 MG/2 ML VIAL. IVP ONE (10:45)
[2019-04-15] MEDS ORDERED: LISINOPRIL 5 MG TABLET. PO SCH (10:45)
[2019-04-15] MEDS: FUROSEMIDE 40 MG TABLET. PO SCH (11:00)
[2019-04-15] MEDS: POTASSIUM CHLORIDE 10 MEQ TABLET.ER. PO SCH (11:00)
[2019-04-15] MEDS ORDERED: DULoxetine HCL 20 MG CAPSULE.DR PO SCH (11:00)
[2019-04-15] MEDS: MYCOPHENOLATE MOFETIL 250 MG CAPSULE. PO SCH ×2 (11:28→21:41)
[2019-04-15] MEDS: POTASSIUM CHLORIDE 20 MEQ TABLET.ER. PO SCH ×2 (11:29→14:56)
[2019-04-15] MEDS: predniSONE 5 MG TABLET PO SCH (11:30)
[2019-04-15] MEDS: CARVEDILOL 3.125 MG TABLET. PO SCH ×2 (11:30→17:00)
[2019-04-15] MEDS: LISINOPRIL 5 MG TABLET. PO SCH (11:31)
[2019-04-15] MEDS: HYDROXYCHLOROQUINE 200 MG TABLET PO SCH ×2 (11:31→21:40)
[2019-04-15] MEDS: levETIRAcetam 250 MG TABLET PO SCH ×2 (11:40→21:40)
[2019-04-15] MEDS: DULoxetine HCL 30 MG CAPSULE.DR PO SCH (11:40)
--- NOTE | 2019-04-15 12:08 | EKG ---
[facility] [address] [place] [address] Test Date: 2019-04-14 Test Time: 22:01:34 Pat Name: NATALIIA HARRIS Department: Room: Gender: F [employer]: : 1970 Requested By: AUGUSTINE GRAY Order Number: [id number] Reading MD: Measurements Intervals [place] Rate: 81 P: 56 VA: 142 QRS: -52 QRSD: 132 T: 40 QT: 402 QTc: 472 Interpretive Statements SINUS RHYTHM LEFT ATRIAL ABNORMALITY ABNORMAL LEFT AXIS DEVIATION LEFT ANTERIOR FASCICULAR BLOCK RIGHT BUNDLE BRANCH BLOCK BIFASCICULAR BLOCK RVH WITH REPOLARIZATION ABNORMALITY QRS(T) CONTOUR ABNORMALITY CONSIDER ANTEROLATERAL INFARCT CONSIDER INFERIOR INFARCT ABNORMAL ECG No previous ECG available for comparison
[2019-04-15] MEDS: HYDROcodone/APAP 5/325MG 1 TAB TABLET PO PRN (12:58)
--- NOTE | 2019-04-15 13:27 | PDOC1 ---
History and Physical Date of Admission: Date of Admission DATE: 04/15/19 TIME: 13:15 Chief Complaint: Problems: (1) Headache (2) Neck pain (3) CAD (coronary artery disease) (4) Hypertension (5) Hypokalemia (6) Anemia (7) Acute CHF (8) Subtherapeutic anticoagulation Chief Complain: Shortness of breath History of Present Illness: HPI: This is a pleasant 48-year-old female who has severe coronary disease at a young age She states she had a 6 vessel bypass years ago She also has a leaky mitral valve She presented with ER with shortness of breath was noted to be in acute on chronic systolic and diastolic heart failure Rates her symptoms at 7 out of 10 She has associated depression but should be noted that she is also currently going through a divorce for the past 3 months (her is an alcoholic) Describes her symptoms as very irritating and concerning Moving makes it worse sitting still makes it better She tried increasing her home meds but that did not help This is been coming on for several days perhaps even weeks I discussed the case with ER physician Eliot admit the patient with consultation to cardiology I just talked to cardiology and discussed case with them as well (the patient apparently has a 20% ejection fraction) Past Medical/Surgical History: PMH/PSH: Past Medical History: Anxiety, Depression, VA, Seizure, Stroke, TIA, Other Additional Past Medical Histor: LUPUS Past Surgical History: Coronary Bypass Surgery, Other Additional Past Surgical Histo: 2X STENT PLACEMENT, CARDIAC BYPASS X 6 Alcohol Use: Rarely Drug Use: Marijuana Allergies: Allergies: Coded Allergies: No Known Drug Allergies (Unverified , 07/08/18) Family History: Family History: Coronary artery disease Social History: Social Hisoty: She does not drink smoke or take drugs She has several children the youngest of which is 16 She's going through a divorce States she just got her disability papers approved Current Medications: Current Medications Current Medications Ketorolac Tromethamine (Toradol 30mg Vial) 30 mg 1X ONCE IVP Last administered on 04/14/19at 23:39; Start 04/14/19 at 23:30; Stop 04/14/19 at 23:31; Status DC Metoclopramide HCl (Reglan Vial) 10 mg 1X ONCE IVP Last administered on 04/14/19at 23:38; Start 04/14/19 at 23:30; Stop 04/14/19 at 23:31; Status DC Diphenhydramine HCl (Benadryl) 25 mg 1X ONCE IVP Last administered on 04/14/19at 23:39; Start 04/14/19 at 23:30; Stop 04/14/19 at 23:31; Status DC Enoxaparin Sodium (Lovenox 80mg Syringe) 80 mg 1X ONCE SQ Last administered on 04/15/19at 00:41; Start 04/15/19 at 00:30; Stop 04/15/19 at 00:31; Status DC Furosemide (Lasix) 40 mg 1X ONCE IVP Last administered on 04/15/19at 00:42; Start 04/15/19 at 00:30; Stop 04/15/19 at 00:31; Status DC Potassium Chloride (Klor-Con) 40 meq 1X ONCE PO Last administered on 04/15/19at 00:39; Start 04/15/19 at 00:30; Stop 04/15/19 at 00:31; Status DC Ondansetron HCl (Zofran) 4 mg PRN Q8HRS PRN IV NAUSEA/VOMITING 1ST CHOICE; Start 04/15/19 at 01:15; Stop 04/16/19 at 01:14 Acetaminophen (Tylenol) 650 mg PRN Q4HRS PRN PO FEVER; Start 04/15/19 at 01:15; Stop 04/16/19 at 01:14 Ketorolac Tromethamine (Toradol 30mg Vial) 30 mg 1X ONCE IVP Last administered on 04/15/19at 03:37; Start 04/15/19 at 04:00; Stop 04/15/19 at 04:01; Status DC Atorvastatin Calcium (Lipitor) 40 mg HS PO ; Start 04/15/19 at 21:00 Carvedilol (Coreg) 3.125 mg BIDWMEALS PO Last administered on 04/15/19at 11:30; Start 04/15/19 at 12:00 Duloxetine HCl (Cymbalta) 20 mg DAILY PO ; Start 04/15/19 at 11:00; Stop 04/15/19 at 11:35; Status DC Furosemide (Lasix) 40 mg DAILY PO ; Start 04/15/19 at 11:00 Hydroxychloroquine Sulfate (Plaquenil) 200 mg BID PO Last administered on 04/15/19at 11:31; Start 04/15/19 at 11:00 Potassium Chloride (Klor-Con) 10 meq DAILY PO ; Start 04/15/19 at 11:00 Prednisone (Prednisone) 5 mg DAILY PO Last administered on 04/15/19at 11:30; Start 04/15/19 at 11:00 Prochlorperazine Maleate (Compazine) 5 mg PRN Q6HRS PRN PO Headache; Start 04/15/19 at 10:30 Tizanidine HCl (Zanaflex) 4 mg TID PO ; Start 04/15/19 at 14:00 Trazodone HCl (Desyrel) 50 mg QHS PO ; Start 04/15/19 at 21:00 Levetiracetam (Keppra) 250 mg BID PO Last administered on 04/15/19at 11:40; Start 04/15/19 at 11:00 Lisinopril (Prinivil) 2.5 mg DAILY PO Last administered on 04/15/19at 11:31; Start 04/15/19 at 11:00 Mycophenolate Mofetil (Cellcept) 500 mg BID PO Last administered on 04/15/19at 11:28; Start 04/15/19 at 11:00 Carvedilol (Coreg) 3.125 mg BIDWMEALS PO ; Start 04/15/19 at 17:00; Status UNV Furosemide (Lasix) 20 mg 1X ONCE IVP Last administered on 04/15/19at 11:28; Start 04/15/19 at 10:45; Stop 04/15/19 at 10:50; Status DC Furosemide (Lasix) 40 mg DAILY PO ; Start 04/16/19 at 09:00; Status UNV Potassium Chloride (Klor-Con) 40 meq Q2H PO Last administered on 04/15/19at 11:29; Start 04/15/19 at 11:00; Stop 04/15/19 at 13:01; Status DC Lisinopril (Prinivil) 2.5 mg DAILY PO ; Start 04/15/19 at 10:45; Status UNV Duloxetine HCl (Cymbalta) 90 mg DAILY PO Last administered on 04/15/19at 11:40; Start 04/15/19 at 11:45 Acetaminophen/ Hydrocodone Bitart (Lortab 5/325) 1 tab PRN Q4HRS PRN PO PAIN Last administered on 04/15/19at 12:58; Start 04/15/19 at 12:45 Active Scripts Active Prochlorperazine Maleate 10 Mg Tablet 5 Mg PO PRN Q6HRS PRN 10 Days Ativan (Lorazepam) 1 Mg Tablet 1 Mg PO PRN QHS PRN 6 Days Hydroxychloroquine Sulfate 200 Mg Tablet 200 Mg PO BID 30 Days Reported Prednisone 5 Mg Tablet 5 Mg PO DAILY Trazodone Hcl 50 Mg Tablet 1 Tab PO QHS Tizanidine Hcl 4 Mg Tablet 1 Tab PO TID Potassium Chloride (Potassium Chloride) 10 Meq Tab.sr.24h 10 Meq PO DAILY Cellcept (Mycophenolate Mofetil) 500 Mg Tablet 1 Tab PO BID Lisinopril 2.5 Mg Tablet 1 Tab PO DAILY Keppra Xr (Levetiracetam) 500 Mg Tab.er.24h 500 Mg PO DAILY Furosemide 40 Mg Tablet 1 Tab PO DAILY Cymbalta (Duloxetine Hcl) 20 Mg Capsule.dr 1 Cap PO DAILY Coreg (Carvedilol) 3.125 Mg Tablet 3.125 Mg PO BIDWMEALS Atorvastatin Calcium 40 Mg Tablet 40 Mg PO HS ROS: Review of Systems Review of System REVIEW OF SYSTEMS: GENERAL: Denies weakness SKIN: No bruising, hair changes or rashes. EYES: No blurred, double or loss of vision. NOSE AND THROAT: No history of nosebleeds, hoarseness or sore throat. HEART: No history of palpitations, chest pain or shortness of breath on exertion. LUNGS: Complains of shortness of breath GASTROINTESTINAL: Denies changes in appetite, nausea, vomiting, diarrhea or constipation. GENITOURINARY: No history of frequency, urgency, hesitancy or nocturia. NEUROLOGIC: Denies history of numbness, tingling, or tremor. PSYCHIATRIC: Complains of depression ENDOCRINE: No history of heat or cold intolerance, polyuria or polydipsia. EXTREMITIES: Denies joint pain, pain on walking or stiffness. Physical Exam: Vital Signs: Vital Signs Date Time Temp Pulse Resp B/P (MAP) Pulse Ox O2 Delivery O2 Flow Rate FiO2 04/15/19 12:58 16 Room Air 04/15/19 11:31 72 119/82 04/15/19 07:00 97.5 99 97.5 Physcial Exam: GEN: No apparent distress. Alert and oriented HEENT: Normal cephalic, atraumatic, external auditory canals are patent EYES: Extraocular muscles are intact, pupil are equally round and reactive to light and accommodation MUSCULOSKELETAL: Well developed , well nourished, good range of motion ENDOCRINE: No thyromegaly was palpated LYMPHATICS: No cervical chain or axillary nodes were noted HEMATOPOIETIC: No bruising NECK: Supple, no JVD, no thyromegaly was noted LUNGS: Clear to auscultation in all lung goldsmith without rhonchi or wheezing HEART: S1 S2 S3 gallop with a systolic ejection murmur ABDOMEN: Soft, nontender. Positive bowel sounds, no organomegaly, normal bowel sounds EXTREMITIES: Without clubbing, cyanosis, or edema. Pedal pulses intact. Negative Homans sign NEUROLOGIC: Normal speech and tone. A&O x 3, moves all extremities, no obvious focal deficits PSYCHIATRIC: Seems depressed. Explained she is going through a divorce. She did have a couple tears while I was in the room I tried to give her words of encouragement SKIN: No ulcerations or rashes, good skin turgor, no jaundice VASCULAR: Good capillary refill, neurovascular bundle appears to be intact Labs: Labs: Laboratory Tests Test 04/14/19 22:40 04/14/19 23:13 04/15/19 04:00 04/15/19 07:10 White Blood Count 7.8 x10^3/uL (4.0-11.0) Red Blood Count 3.96 x10^6/uL (3.50-5.40) Hemoglobin 8.6 g/dL (12.0-15.5) Hematocrit 27.6 % (36.0-47.0) Mean Corpuscular Volume 70 fL (79-100) Mean Corpuscular Hemoglobin 22 pg (25-35) Mean Corpuscular Hemoglobin Concent 31 g/dL (31-37) Red Cell Distribution Width 19.8 % (11.5-14.5) Platelet Count 153 x10^3/uL (140-400) Neutrophils (%) (Auto) 70 % (31-73) Lymphocytes (%) (Auto) 21 % (24-48) Monocytes (%) (Auto) 7 % (0-9) Eosinophils (%) (Auto) 2 % (0-3) Basophils (%) (Auto) 1 % (0-3) Neutrophils # (Auto) 5.4 x10^3/uL (1.8-7.7) Lymphocytes # (Auto) 1.6 x10^3/uL (1.0-4.8) Monocytes # (Auto) 0.5 x10^3/uL (0.0-1.1) Eosinophils # (Auto) 0.2 x10^3/uL (0.0-0.7) Basophils # (Auto) 0.1 x10^3/uL (0.0-0.2) Platelet Estimate Adequate (ADEQUATE) Hypochromasia Slight Poikilocytosis Slight Anisocytosis Mod Ovalocytes Occ Prothrombin Time 13.4 SEC (11.7-14.0) Prothromb Time International Ratio 1.1 (0.8-1.1) D-Dimer (Aida) 0.74 ug/mlFEU (0.00-0.50) Sodium Level 140 mmol/L (136-145) Potassium Level 3.3 mmol/L (3.5-5.1) Chloride Level 105 mmol/L (98-107) Carbon Dioxide Level 24 mmol/L (21-32) Anion Gap 11 (6-14) Blood Urea Nitrogen 18 mg/dL (7-20) Creatinine 1.1 mg/dL (0.6-1.0) Estimated GFR (Cockcroft-Gault) 53.0 BUN/Creatinine Ratio 16 (6-20) Glucose Level 96 mg/dL (70-99) Calcium Level 8.8 mg/dL (8.5-10.1) Total Bilirubin 0.5 mg/dL (0.2-1.0) Aspartate Amino Transf (AST/SGOT) 17 U/L (15-37) Alanine Aminotransferase (ALT/SGPT) 19 U/L (14-59) Alkaline Phosphatase 92 U/L (46-116) Troponin I Quantitative 0.021 ng/mL (0.000-0.055) < 0.017 ng/mL (0.000-0.055) < 0.017 ng/mL (0.000-0.055) GI-Qoe-M-Type Natriuretic Peptide 5930 pg/mL (0-124) Total Protein 7.2 g/dL (6.4-8.2) Albumin 3.1 g/dL (3.4-5.0) Albumin/Globulin Ratio 0.8 (1.0-1.7) Urine Collection Type Unknown Urine Color Yellow Urine Clarity Clear Urine pH 7.0 Urine Specific [place] <=1.005 Urine Protein Negative mg/dL (NEG-TRACE) Urine Glucose (UA) Negative mg/dL (NEG) Urine Ketones (Stick) Negative mg/dL (NEG) Urine Blood Negative (NEG) Urine Nitrite Negative (NEG) Urine Bilirubin Negative (NEG) Urine Urobilinogen Dipstick 1.0 mg/dL (0.2 mg/dL) Urine Leukocyte Esterase Negative (NEG) Urine RBC 0 /HPF (0-2) Urine WBC Occ /HPF (0-4) Urine Squamous Epithelial Cells Few /LPF Urine Bacteria 0 /HPF (0-FEW) Laboratory Tests Test 04/14/19 22:40 04/14/19 23:13 04/15/19 04:00 04/15/19 07:10 White Blood Count 7.8 x10^3/uL (4.0-11.0) Red Blood Count 3.96 x10^6/uL (3.50-5.40) Hemoglobin 8.6 g/dL (12.0-15.5) Hematocrit 27.6 % (36.0-47.0) Mean Corpuscular Volume 70 fL (79-100) Mean Corpuscular Hemoglobin 22 pg (25-35) Mean Corpuscular Hemoglobin Concent 31 g/dL (31-37) Red Cell Distribution Width 19.8 % (11.5-14.5) Platelet Count 153 x10^3/uL (140-400) Neutrophils (%) (Auto) 70 % (31-73) Lymphocytes (%) (Auto) 21 % (24-48) Monocytes (%) (Auto) 7 % (0-9) Eosinophils (%) (Auto) 2 % (0-3) Basophils (%) (Auto) 1 % (0-3) Neutrophils # (Auto) 5.4 x10^3/uL (1.8-7.7) Lymphocytes # (Auto) 1.6 x10^3/uL (1.0-4.8) Monocytes # (Auto) 0.5 x10^3/uL (0.0-1.1) Eosinophils # (Auto) 0.2 x10^3/uL (0.0-0.7) Basophils # (Auto) 0.1 x10^3/uL (0.0-0.2) Platelet Estimate Adequate (ADEQUATE) Hypochromasia Slight Poikilocytosis Slight Anisocytosis Mod Ovalocytes Occ Prothrombin Time 13.4 SEC (11.7-14.0) Prothromb Time International Ratio 1.1 (0.8-1.1) D-Dimer (Aida) 0.74 ug/mlFEU (0.00-0.50) Sodium Level 140 mmol/L (136-145) Potassium Level 3.3 mmol/L (3.5-5.1) Chloride Level 105 mmol/L (98-107) Carbon Dioxide Level 24 mmol/L (21-32) Anion Gap 11 (6-14) Blood Urea Nitrogen 18 mg/dL (7-20) Creatinine 1.1 mg/dL (0.6-1.0) Estimated GFR (Cockcroft-Gault) 53.0 BUN/Creatinine Ratio 16 (6-20) Glucose Level 96 mg/dL (70-99) Calcium Level 8.8 mg/dL (8.5-10.1) Total Bilirubin 0.5 mg/dL (0.2-1.0) Aspartate Amino Transf (AST/SGOT) 17 U/L (15-37) Alanine Aminotransferase (ALT/SGPT) 19 U/L (14-59) Alkaline Phosphatase 92 U/L (46-116) Troponin I Quantitative 0.021 ng/mL (0.000-0.055) < 0.017 ng/mL (0.000-0.055) < 0.017 ng/mL (0.000-0.055) FD-Bvr-J-Type Natriuretic Peptide 5930 pg/mL (0-124) Total Protein 7.2 g/dL (6.4-8.2) Albumin 3.1 g/dL (3.4-5.0) Albumin/Globulin Ratio 0.8 (1.0-1.7) Urine Collection Type Unknown Urine Color Yellow Urine Clarity Clear Urine pH 7.0 Urine Specific [place] <=1.005 Urine Protein Negative mg/dL (NEG-TRACE) Urine Glucose (UA) Negative mg/dL (NEG) Urine Ketones (Stick) Negative mg/dL (NEG) Urine Blood Negative (NEG) Urine Nitrite Negative (NEG) Urine Bilirubin Negative (NEG) Urine Urobilinogen Dipstick 1.0 mg/dL (0.2 mg/dL) Urine Leukocyte Esterase Negative (NEG) Urine RBC 0 /HPF (0-2) Urine WBC Occ /HPF (0-4) Urine Squamous Epithelial Cells Few /LPF Urine Bacteria 0 /HPF (0-FEW) Images: Images I reviewed the chest x-ray myself Her cardiac silhouette is quite large She has trace pleural effusion on the left Positive vascular congestion consistent with heart failure Please see official results below PATIENT: NATALIIA HARRIS ACCOUNT: [id number] : 1970 LOCATION: ER AGE: 48 SEX: F EXAM STATUS: REG ER ORD. PHYSICIAN: AUGUSTINE GRAY MD REASON: dyspnea PROCEDURE: PORTABLE CHEST 1V EXAM: CHEST 1 VIEW History: Dyspnea COMPARISON: 07/08/2018 TECHNIQUE: Single portable radiograph of the chest FINDINGS: Mild cardiomegaly. Mild diffuse prominent bilateral interstitial lung markings likely interstitial infiltrates or edema. The costophrenic sulci are clear and well demarcated. IMPRESSION: 1. Diffuse prominent bilateral interstitial lung markings likely interstitial infiltrates or mild congestive changes. Lower extremity Dopplers were negative for DVTs Assessment/Plan Assessment/Plan Acute on chronic systolic and diastolic heart failure 20% ejection fraction Depression Mitral regurg Anxiety Seizure disorder Old strokes and TIAs Marijuana use Lupus Coronary Bypass Surgery, Other 2 prior coronary stents Plan Cardiac monitoring Consult cardiology IV Lasix Serial enzymes Serial EKGs Considering getting a new echocardiogram if okay with cardiology DVT prophylaxis Full code Continue the SSRI for her depression Trend labs Given her relatively young age and the fact that she only has a 20% ejection fraction I suspect she will need a cardiac transplant some day perhaps 5+ years from now?(She normally follows at [facility]) I explained this to her and she agrees Prognosis guarded Discussed with ct manager YAYO LINDSAY III DO Apr 15, 2019 13:27
[2019-04-15] MEDS: tiZANidine 4 MG TABLET. PO SCH ×2 (14:56→21:41)
[2019-04-15] MEDS ORDERED: CARVEDILOL 3.125 MG TABLET. PO SCH (17:00)
[2019-04-15] MEDS ORDERED: IV NORMAL SALINE 1000ML BAG 1,000 ML IV ONE (20:15)
[2019-04-15] MEDS: ATORVASTATIN CALCIUM 40 MG TABLET. PO SCH (21:41)
[2019-04-15] MEDS: traZODone 50 MG TABLET. PO SCH (21:41)
[2019-04-16] VITALS (8 sets, daily range): BP systolic 75–102; BP diastolic 46–72
[2019-04-16 04:14] LABS: BASO # 0.1 x10^3/uL (0.0-0.2); BASO % 1 % (0-3); EOS # 0.2 x10^3/uL (0.0-0.7); EOS % 3 % (0-3); HEMATOCRIT 25.5 % (36.0-47.0); HEMOGLOBIN 7.8 g/dL (12.0-15.5); LYMPH # 1.4 x10^3/uL (1.0-4.8); LYMPH % 26 % (24-48); MEAN CORPUSCULAR HEMOGLOBIN 22 pg (25-35); MEAN CORPUSCULAR HGB CONC 30 g/dL (31-37); MEAN CORPUSCULAR VOLUME 71 fL (79-100); MONO # 0.5 x10^3/uL (0.0-1.1); MONO % 10 % (0-9); NEUT # 3.3 x10^3/uL (1.8-7.7); NEUT % 60 % (31-73); PLATELET COUNT 133 x10^3/uL (140-400); RED BLOOD COUNT 3.61 x10^6/uL (3.50-5.40); RED CELL DISTRIBUTION WIDTH 19.9 % (11.5-14.5); WHITE BLOOD COUNT 5.4 x10^3/uL (4.0-11.0)
[2019-04-16 04:40] LABS: ALBUMIN 2.7 g/dL (3.4-5.0); ALBUMIN/GLOBULIN RATIO 0.7 (1.0-1.7); CALCIUM 8.4 mg/dL (8.5-10.1); CREATININE 1.4 mg/dL (0.6-1.0); GFR 40.1; POTASSIUM 5.5 mmol/L (3.5-5.1); TOTAL BILIRUBIN 0.5 mg/dL (0.2-1.0); TOTAL PROTEIN 6.4 g/dL (6.4-8.2)
[2019-04-16] MEDS: HYDROcodone/APAP 5/325MG 1 TAB TABLET PO PRN ×3 (06:24→20:42)
[2019-04-16] MEDS ORDERED: FUROSEMIDE 40 MG TABLET. PO SCH (09:00)
[2019-04-16] MEDS: POTASSIUM CHLORIDE 10 MEQ TABLET.ER. PO SCH (09:00)
[2019-04-16] MEDS: DULoxetine HCL 30 MG CAPSULE.DR PO SCH ×2 (09:53→20:41)
[2019-04-16] MEDS: tiZANidine 4 MG TABLET. PO SCH ×3 (09:53→20:42)
[2019-04-16] MEDS: predniSONE 5 MG TABLET PO SCH (09:54)
[2019-04-16] MEDS: MYCOPHENOLATE MOFETIL 250 MG CAPSULE. PO SCH ×2 (09:54→20:41)
[2019-04-16] MEDS: HYDROXYCHLOROQUINE 200 MG TABLET PO SCH ×2 (09:54→20:41)
[2019-04-16] MEDS: levETIRAcetam 250 MG TABLET PO SCH ×2 (09:54→20:41)
[2019-04-16] MEDS: CARVEDILOL 3.125 MG TABLET. PO SCH (09:55)
[2019-04-16] MEDS: LISINOPRIL 5 MG TABLET. PO SCH (09:55)
--- NOTE | 2019-04-16 12:39 | PDOC ---
Provider Note Provider Note Pt with asymptomatic hypotension overnight with BP of 70/40's. Will stop her coreg and lisinopril continue asa, lasix. will ambulate today and if she feels ok, she can be discharged with close f/u with in 7 days at her disposal worker in [facility] I suspect she will likely need evaluation for ionotropic support versus VAD/Txp in the near future. I discussed this with the patient. If she is unable to ambulate w/o dyspnea or LH etc, then plan for inpt transfer to either or [facility] system for advanced HF therapies. Thanks. JEREMIAH VALDERRAMA MD Apr 16, 2019 12:38
[2019-04-16] MEDS: FUROSEMIDE 40 MG TABLET. PO SCH (13:28)
--- NOTE | 2019-04-16 14:28 | PDOC ---
[employer] PROGRESS NOTE Chief Complaint Chief Complaint Acute on chronic systolic and diastolic heart failure 20% ejection fraction Depression Mitral regurg Anxiety Seizure disorder Old strokes and TIAs Marijuana use Lupus Coronary Bypass Surgery, Other 2 prior coronary stents History of Present Illness History of Present Illness [id number] Patient seen and examined She is stable but depressed Chart reviewed Discussed with RN Vitals/I&O Vitals/I&O: Vital Signs Date Time Temp Pulse Resp B/P (MAP) Pulse Ox O2 Delivery O2 Flow Rate FiO2 04/16/19 13:27 16 Room Air 04/16/19 11:30 97.6 50 75/49 (58) 98 97.6 I & O 04/15/19 04/15/19 04/16/19 15:00 23:00 07:00 Intake Total 500 ml Balance 500 ml Physical Exam General: Alert, Oriented X3 Heart: Regular rate, Normal S1 Lungs: Clear Abdomen: Normal bowel sounds, Soft Extremities: No clubbing, No cyanosis Skin: No rashes, No breakdown Labs Labs: Laboratory Tests Test 04/16/19 03:30 White Blood Count 5.4 x10^3/uL (4.0-11.0) Red Blood Count 3.61 x10^6/uL (3.50-5.40) Hemoglobin 7.8 g/dL (12.0-15.5) Hematocrit 25.5 % (36.0-47.0) Mean Corpuscular Volume 71 fL (79-100) Mean Corpuscular Hemoglobin 22 pg (25-35) Mean Corpuscular Hemoglobin Concent 30 g/dL (31-37) Red Cell Distribution Width 19.9 % (11.5-14.5) Platelet Count 133 x10^3/uL (140-400) Neutrophils (%) (Auto) 60 % (31-73) Lymphocytes (%) (Auto) 26 % (24-48) Monocytes (%) (Auto) 10 % (0-9) Eosinophils (%) (Auto) 3 % (0-3) Basophils (%) (Auto) 1 % (0-3) Neutrophils # (Auto) 3.3 x10^3/uL (1.8-7.7) Lymphocytes # (Auto) 1.4 x10^3/uL (1.0-4.8) Monocytes # (Auto) 0.5 x10^3/uL (0.0-1.1) Eosinophils # (Auto) 0.2 x10^3/uL (0.0-0.7) Basophils # (Auto) 0.1 x10^3/uL (0.0-0.2) Sodium Level 136 mmol/L (136-145) Potassium Level 5.5 mmol/L (3.5-5.1) Chloride Level 105 mmol/L (98-107) Carbon Dioxide Level 22 mmol/L (21-32) Anion Gap 9 (6-14) Blood Urea Nitrogen 25 mg/dL (7-20) Creatinine 1.4 mg/dL (0.6-1.0) Estimated GFR (Cockcroft-Gault) 40.1 BUN/Creatinine Ratio 18 (6-20) Glucose Level 92 mg/dL (70-99) Calcium Level 8.4 mg/dL (8.5-10.1) Total Bilirubin 0.5 mg/dL (0.2-1.0) Aspartate Amino Transf (AST/SGOT) 53 U/L (15-37) Alanine Aminotransferase (ALT/SGPT) 44 U/L (14-59) Alkaline Phosphatase 108 U/L (46-116) Total Protein 6.4 g/dL (6.4-8.2) Albumin 2.7 g/dL (3.4-5.0) Albumin/Globulin Ratio 0.7 (1.0-1.7) Review of Systems Review of Systems: Complains of depression complains of shortness of breath Assessment and Plan Assessmemt and Plan Problems Medical Problems: (1) Acute CHF Status: Acute (2) Hypokalemia Status: Acute (3) Subtherapeutic anticoagulation Status: Acute Acute on chronic systolic and diastolic heart failure 20% ejection fraction Depression Mitral regurg Anxiety Seizure disorder Old strokes and TIAs Marijuana use Lupus Coronary Bypass Surgery, Other 2 prior coronary stents Plan Cardiac monitoring Cardiology following IV Lasix Serial enzymes Serial EKGs Considering getting a new echocardiogram if okay with cardiology DVT prophylaxis Full code Continue the SSRI for her depression Trend labs Given her relatively young age and the fact that she only has a 20% ejection fraction I suspect she will need a cardiac transplant some day perhaps 5+ years from now?(She normally follows at [facility]) I explained this to her and she agrees Prognosis guarded Discussed with carpenter bridge Comment Review of Relevant I have reviewed the following items brandee (where applicable) has been applied. Medications: Current Medications Medications (Trade) Dose Ordered Sig/Doretha Route PRN Reason Start Time Stop Time Status Last Admin Dose Admin Atorvastatin Calcium (Lipitor) 40 mg HS PO 04/15/19 21:00 04/15/19 21:41 Trazodone HCl (Desyrel) 50 mg QHS PO 04/15/19 21:00 04/15/19 21:41 YAYO LINDSAY III DO Apr 16, 2019 14:28
[2019-04-16] MEDS: traZODone 50 MG TABLET. PO SCH (20:41)
[2019-04-16] MEDS: ATORVASTATIN CALCIUM 40 MG TABLET. PO SCH (20:41)
[2019-04-17] VITALS (9 sets, daily range): BP systolic 75–119; BP diastolic 46–78
[2019-04-17] MEDS: POTASSIUM CHLORIDE 10 MEQ TABLET.ER. PO SCH ×2 (09:00→09:45)
[2019-04-17 09:17] LABS: BASO # 0.1 x10^3/uL (0.0-0.2); BASO % 1 % (0-3); EOS # 0.2 x10^3/uL (0.0-0.7); EOS % 2 % (0-3); HEMATOCRIT 30.4 % (36.0-47.0); HEMOGLOBIN 9.2 g/dL (12.0-15.5); LYMPH % 16 % (24-48); MEAN CORPUSCULAR HEMOGLOBIN 21 pg (25-35); MEAN CORPUSCULAR HGB CONC 30 g/dL (31-37); MEAN CORPUSCULAR VOLUME 71 fL (79-100); MONO # 0.4 x10^3/uL (0.0-1.1); MONO % 6 % (0-9); NEUT # 4.6 x10^3/uL (1.8-7.7); NEUT % 75 % (31-73); PLATELET COUNT 189 x10^3/uL (140-400); RED BLOOD COUNT 4.32 x10^6/uL (3.50-5.40); RED CELL DISTRIBUTION WIDTH 20.3 % (11.5-14.5); WHITE BLOOD COUNT 6.2 x10^3/uL (4.0-11.0)
[2019-04-17] MEDS: HYDROXYCHLOROQUINE 200 MG TABLET PO SCH ×2 (09:19→20:36)
[2019-04-17] MEDS: predniSONE 5 MG TABLET PO SCH (09:19)
[2019-04-17] MEDS: MYCOPHENOLATE MOFETIL 250 MG CAPSULE. PO SCH ×2 (09:20→20:35)
[2019-04-17] MEDS: HYDROcodone/APAP 5/325MG 1 TAB TABLET PO PRN ×3 (09:20→20:35)
[2019-04-17] MEDS: tiZANidine 4 MG TABLET. PO SCH ×3 (09:20→20:36)
[2019-04-17] MEDS: levETIRAcetam 250 MG TABLET PO SCH ×2 (09:20→20:36)
[2019-04-17] MEDS: FUROSEMIDE 40 MG TABLET. PO SCH (09:21)
[2019-04-17 09:33] LABS: CALCIUM 8.7 mg/dL (8.5-10.1); CREATININE 1.6 mg/dL (0.6-1.0); GFR 34.4; POTASSIUM 4.3 mmol/L (3.5-5.1)
--- NOTE | 2019-04-17 10:58 | NUR ---
SS following for discharge planning. SS reviewed pt chart. Pt is from home and is currently on room air. SS discussed with pt's RN, pt, and family. Per notes and pt and family, pt needs to be transferred to [facility] for advanced heart failure treatment. Pt and family reported that pt's Lean Process Deployment Consultant, Dr. Mclaughlin, and Surgeon, Dr. Khan, are both at [facility] and pt and family are requesting transfer to [facility]. SS contacted [facility] transfer team, , and requested transfer to [facility]. SS phoned and faxed face sheet, H&P, and progress notes per request to [facility], fax [phone]. Research reported that they will review records and contact Dr. Naranjo and will contact SS with acceptance decision. SS will await further communication and will proceed accordingly.
--- NOTE | 2019-04-17 13:58 | PDOC ---
NATE NANCE TEST ENGINEERING MANAGER 04/17/19 1358: CARDIO Progress Notes Date and Time Date of Service 04/17/19 Time of Evaluation 1310 Subjective Subjective: No Chest Pain, No Palpitations, No Dizziness, Other (SOA improved, feels very fatigued ) Vitals Vitals Vital Signs Date Time Temp Pulse Resp B/P (MAP) Pulse Ox O2 Delivery O2 Flow Rate FiO2 04/17/19 13:03 16 98 Room Air 04/17/19 10:13 97.5 69 103/65 (78) 97.5 Weight Weight [ ] Input and Output Intake and Output Intake and Output 04/17/19 07:00 Intake Total 780 ml Output Total 1700 ml Balance -920 ml Intake Oral 780 ml Output Urine Total 1700 ml # Voids 2 Laboratory Labs Laboratory Tests Test 04/17/19 08:55 White Blood Count 6.2 x10^3/uL (4.0-11.0) Red Blood Count 4.32 x10^6/uL (3.50-5.40) Hemoglobin 9.2 g/dL (12.0-15.5) Hematocrit 30.4 % (36.0-47.0) Mean Corpuscular Volume 71 fL (79-100) Mean Corpuscular Hemoglobin 21 pg (25-35) Mean Corpuscular Hemoglobin Concent 30 g/dL (31-37) Red Cell Distribution Width 20.3 % (11.5-14.5) Platelet Count 189 x10^3/uL (140-400) Neutrophils (%) (Auto) 75 % (31-73) Lymphocytes (%) (Auto) 16 % (24-48) Monocytes (%) (Auto) 6 % (0-9) Eosinophils (%) (Auto) 2 % (0-3) Basophils (%) (Auto) 1 % (0-3) Neutrophils # (Auto) 4.6 x10^3/uL (1.8-7.7) Lymphocytes # (Auto) 1.0 x10^3/uL (1.0-4.8) Monocytes # (Auto) 0.4 x10^3/uL (0.0-1.1) Eosinophils # (Auto) 0.2 x10^3/uL (0.0-0.7) Basophils # (Auto) 0.1 x10^3/uL (0.0-0.2) Sodium Level 136 mmol/L (136-145) Potassium Level 4.3 mmol/L (3.5-5.1) Chloride Level 100 mmol/L (98-107) Carbon Dioxide Level 25 mmol/L (21-32) Anion Gap 11 (6-14) Blood Urea Nitrogen 25 mg/dL (7-20) Creatinine 1.6 mg/dL (0.6-1.0) Estimated GFR (Cockcroft-Gault) 34.4 Glucose Level 143 mg/dL (70-99) Calcium Level 8.7 mg/dL (8.5-10.1) Physical Exam HEENT: Neck Supple W Full Motion Chest: Symmetric LUNGS: Other (diminished bases) Heart: RRR Abdomen: Soft N/T Extremities: No Edema Neurology: alert, oriented, other (appears fatigued ) Assessment Assessment 1. Acute on chronic systolic congestive heart failure; better compensated 2. CAD s/p CABG 2016 3. Ischemic cardiomyopathy; LVEF 20-25% 4. Severe valvular heart disease; s/p mitral valve ring 2016 5. FREEDOM, hyperkalemia 6. Hypertension; hypotensive with SBP in 60's this afternoon 7. History of lupus 8. Chronic marijuana use Recommendations Herb lgive 250 cc bluid bolus Blood pressures limiting HF optimization. Lisinoprol and Coreg discontinued Secondary prevention as able. Patient requesting transfer to [facility] where primary doctors as located. [facility] is accepting, but patient likely need advance HF therapies, which they do not have. Discussed with patient, she is agreeable to transfer to [facility] for advanced t herapies. Will d/w primary case management manager. JEREMIAH VALDERRAMA MD 04/18/19 1054: CARDIO Progress Notes Plan Plan Late entry for 04/17/2019. Pt. seen and examined. Agree with above DRIER AND GRINDER TENDER note. Supportive care. Awaiting transfer to [facility] NATE NANCE APRN Apr 17, 2019 13:58 JEREMIAH VALDERRAMA MD Apr 18, 2019 10:54
[2019-04-17] MEDS ORDERED: IV NORMAL SALINE 250ML 250 ML IV ONE ×2 (14:45→15:30)
[2019-04-17] MEDS ORDERED: IV NORMAL SALINE 500ML BAG 250 ML IV ONE (15:00)
--- NOTE | 2019-04-17 16:32 | NUR ---
SS following up with discharge planning. Pt now requesting transfer to [facility], ; fax [phone]. SS contacted [facility] transfer team, ; fax [phone], and made request for transfer. [facility] contacted SS and reported that pt is currently on waitlist for admission. SS will continue to follow for discharge planning.
--- NOTE | 2019-04-17 18:21 | PDOC ---
PROGRESS NOTES Chief Complaint Chief Complaint Acute on chronic systolic and diastolic heart failure 20% ejection fraction Depression Mitral regurg Anxiety Seizure disorder Old strokes and TIAs Marijuana use Lupus Coronary Bypass Surgery, Other 2 prior coronary stents Plan: patient seems to be decompensating compared to yesterday patient on the wait list at [facility], would she get worse overnight we may have to explore transferring to [facility] as per business development consultant to help with BP she may need to be moved to the ICU for closer mmonitoring would her hemdynamics continue to deteriorate History of Present Illness History of Present Illness 04/17/2019 Pierson better during my visit, nevertheless throughout the day she developed symptoms again,, discussed with safety and health consultant. [facility] hospitalist team have accepted nevertheless they dont have available beds at the moment. [id number] Patient seen and examined She is stable but depressed Chart reviewed Discussed with RN Vitals Vitals Vital Signs Date Time Temp Pulse Resp B/P (MAP) Pulse Ox O2 Delivery O2 Flow Rate FiO2 04/17/19 14:33 97.8 48 16 75/46 (56) 99 Room Air 97.8 Physical Exam General: Alert, Oriented X3 Heart: Regular rate, Normal S1 Lungs: Clear Abdomen: Normal bowel sounds, Soft Extremities: No clubbing, No cyanosis Skin: No rashes, No breakdown Labs LABS Laboratory Tests Test 04/17/19 08:55 White Blood Count 6.2 x10^3/uL (4.0-11.0) Red Blood Count 4.32 x10^6/uL (3.50-5.40) Hemoglobin 9.2 g/dL (12.0-15.5) Hematocrit 30.4 % (36.0-47.0) Mean Corpuscular Volume 71 fL (79-100) Mean Corpuscular Hemoglobin 21 pg (25-35) Mean Corpuscular Hemoglobin Concent 30 g/dL (31-37) Red Cell Distribution Width 20.3 % (11.5-14.5) Platelet Count 189 x10^3/uL (140-400) Neutrophils (%) (Auto) 75 % (31-73) Lymphocytes (%) (Auto) 16 % (24-48) Monocytes (%) (Auto) 6 % (0-9) Eosinophils (%) (Auto) 2 % (0-3) Basophils (%) (Auto) 1 % (0-3) Neutrophils # (Auto) 4.6 x10^3/uL (1.8-7.7) Lymphocytes # (Auto) 1.0 x10^3/uL (1.0-4.8) Monocytes # (Auto) 0.4 x10^3/uL (0.0-1.1) Eosinophils # (Auto) 0.2 x10^3/uL (0.0-0.7) Basophils # (Auto) 0.1 x10^3/uL (0.0-0.2) Sodium Level 136 mmol/L (136-145) Potassium Level 4.3 mmol/L (3.5-5.1) Chloride Level 100 mmol/L (98-107) Carbon Dioxide Level 25 mmol/L (21-32) Anion Gap 11 (6-14) Blood Urea Nitrogen 25 mg/dL (7-20) Creatinine 1.6 mg/dL (0.6-1.0) Estimated GFR (Cockcroft-Gault) 34.4 Glucose Level 143 mg/dL (70-99) Calcium Level 8.7 mg/dL (8.5-10.1) Assessment and Plan Assessmemt and Plan Problems Medical Problems: (1) Acute CHF Status: Acute (2) Hypokalemia Status: Acute (3) Subtherapeutic anticoagulation Status: Acute Comment Review of Relevant I have reviewed the following items brandee (where applicable) has been applied. Labs Laboratory Tests Test 04/16/19 03:30 04/17/19 08:55 White Blood Count 5.4 x10^3/uL (4.0-11.0) 6.2 x10^3/uL (4.0-11.0) Red Blood Count 3.61 x10^6/uL (3.50-5.40) 4.32 x10^6/uL (3.50-5.40) Hemoglobin 7.8 g/dL (12.0-15.5) 9.2 g/dL (12.0-15.5) Hematocrit 25.5 % (36.0-47.0) 30.4 % (36.0-47.0) Mean Corpuscular Volume 71 fL (79-100) 71 fL (79-100) Mean Corpuscular Hemoglobin 22 pg (25-35) 21 pg (25-35) Mean Corpuscular Hemoglobin Concent 30 g/dL (31-37) 30 g/dL (31-37) Red Cell Distribution Width 19.9 % (11.5-14.5) 20.3 % (11.5-14.5) Platelet Count 133 x10^3/uL (140-400) 189 x10^3/uL (140-400) Neutrophils (%) (Auto) 60 % (31-73) 75 % (31-73) Lymphocytes (%) (Auto) 26 % (24-48) 16 % (24-48) Monocytes (%) (Auto) 10 % (0-9) 6 % (0-9) Eosinophils (%) (Auto) 3 % (0-3) 2 % (0-3) Basophils (%) (Auto) 1 % (0-3) 1 % (0-3) Neutrophils # (Auto) 3.3 x10^3/uL (1.8-7.7) 4.6 x10^3/uL (1.8-7.7) Lymphocytes # (Auto) 1.4 x10^3/uL (1.0-4.8) 1.0 x10^3/uL (1.0-4.8) Monocytes # (Auto) 0.5 x10^3/uL (0.0-1.1) 0.4 x10^3/uL (0.0-1.1) Eosinophils # (Auto) 0.2 x10^3/uL (0.0-0.7) 0.2 x10^3/uL (0.0-0.7) Basophils # (Auto) 0.1 x10^3/uL (0.0-0.2) 0.1 x10^3/uL (0.0-0.2) Sodium Level 136 mmol/L (136-145) 136 mmol/L (136-145) Potassium Level 5.5 mmol/L (3.5-5.1) 4.3 mmol/L (3.5-5.1) Chloride Level 105 mmol/L (98-107) 100 mmol/L (98-107) Carbon Dioxide Level 22 mmol/L (21-32) 25 mmol/L (21-32) Anion Gap 9 (6-14) 11 (6-14) Blood Urea Nitrogen 25 mg/dL (7-20) 25 mg/dL (7-20) Creatinine 1.4 mg/dL (0.6-1.0) 1.6 mg/dL (0.6-1.0) Estimated GFR (Cockcroft-Gault) 40.1 34.4 BUN/Creatinine Ratio 18 (6-20) Glucose Level 92 mg/dL (70-99) 143 mg/dL (70-99) Calcium Level 8.4 mg/dL (8.5-10.1) 8.7 mg/dL (8.5-10.1) Total Bilirubin 0.5 mg/dL (0.2-1.0) Aspartate Amino Transf (AST/SGOT) 53 U/L (15-37) Alanine Aminotransferase (ALT/SGPT) 44 U/L (14-59) Alkaline Phosphatase 108 U/L (46-116) Total Protein 6.4 g/dL (6.4-8.2) Albumin 2.7 g/dL (3.4-5.0) Albumin/Globulin Ratio 0.7 (1.0-1.7) Laboratory Tests Test 04/17/19 08:55 White Blood Count 6.2 x10^3/uL (4.0-11.0) Red Blood Count 4.32 x10^6/uL (3.50-5.40) Hemoglobin 9.2 g/dL (12.0-15.5) Hematocrit 30.4 % (36.0-47.0) Mean Corpuscular Volume 71 fL (79-100) Mean Corpuscular Hemoglobin 21 pg (25-35) Mean Corpuscular Hemoglobin Concent 30 g/dL (31-37) Red Cell Distribution Width 20.3 % (11.5-14.5) Platelet Count 189 x10^3/uL (140-400) Neutrophils (%) (Auto) 75 % (31-73) Lymphocytes (%) (Auto) 16 % (24-48) Monocytes (%) (Auto) 6 % (0-9) Eosinophils (%) (Auto) 2 % (0-3) Basophils (%) (Auto) 1 % (0-3) Neutrophils # (Auto) 4.6 x10^3/uL (1.8-7.7) Lymphocytes # (Auto) 1.0 x10^3/uL (1.0-4.8) Monocytes # (Auto) 0.4 x10^3/uL (0.0-1.1) Eosinophils # (Auto) 0.2 x10^3/uL (0.0-0.7) Basophils # (Auto) 0.1 x10^3/uL (0.0-0.2) Sodium Level 136 mmol/L (136-145) Potassium Level 4.3 mmol/L (3.5-5.1) Chloride Level 100 mmol/L (98-107) Carbon Dioxide Level 25 mmol/L (21-32) Anion Gap 11 (6-14) Blood Urea Nitrogen 25 mg/dL (7-20) Creatinine 1.6 mg/dL (0.6-1.0) Estimated GFR (Cockcroft-Gault) 34.4 Glucose Level 143 mg/dL (70-99) Calcium Level 8.7 mg/dL (8.5-10.1) Medications Current Medications Ketorolac Tromethamine (Toradol 30mg Vial) 30 mg 1X ONCE IVP Last administered on 04/14/19at 23:39; Start 04/14/19 at 23:30; Stop 04/14/19 at 23:31; Status DC Metoclopramide HCl (Reglan Vial) 10 mg 1X ONCE IVP Last administered on 04/14/19at 23:38; Start 04/14/19 at 23:30; Stop 04/14/19 at 23:31; Status DC Diphenhydramine HCl (Benadryl) 25 mg 1X ONCE IVP Last administered on 04/14at 23:39; Start 04/14/19 at 23:30; Stop 04/14/19 at 23:31; Status DC Enoxaparin Sodium (Lovenox 80mg Syringe) 80 mg 1X ONCE SQ Last administered on 04/15/19at 00:41; Start 04/15/19 at 00:30; Stop 04/15/19 at 00:31; Status DC Furosemide (Lasix) 40 mg 1X ONCE IVP Last administered on 04/15/19at 00:42; Start 04/15/19 at 00:30; Stop 04/15/19 at 00:31; Status DC Potassium Chloride (Klor-Con) 40 meq 1X ONCE PO Last administered on 04/15/19at 00:39; Start 04/15/19 at 00:30; Stop 04/15/19 at 00:31; Status DC Ondansetron HCl (Zofran) 4 mg PRN Q8HRS PRN IV NAUSEA/VOMITING 1ST CHOICE; Start 04/15/19 at 01:15; Stop 04/16/19 at 01:14; Status DC Acetaminophen (Tylenol) 650 mg PRN Q4HRS PRN PO FEVER; Start 04/15/19 at 01:15; Stop 04/16/19 at 01:14; Status DC Ketorolac Tromethamine (Toradol 30mg Vial) 30 mg 1X ONCE IVP Last administered on 04/15/19at 03:37; Start 04/15/19 at 04:00; Stop 04/15/19 at 04:01; Status DC Atorvastatin Calcium (Lipitor) 40 mg HS PO Last administered on 04/16/19at 20:41; Start 04/15/19 at 21:00 Carvedilol (Coreg) 3.125 mg BIDWMEALS PO Last administered on 04/16/19at 09:55; Start 04/15/19 at 12:00; Stop 04/16/19 at 12:26; Status DC Duloxetine HCl (Cymbalta) 20 mg DAILY PO ; Start 04/15/19 at 11:00; Stop 04/15/19 at 11:35; Status DC Furosemide (Lasix) 40 mg DAILY PO Last administered on 04/17/19 09:21; Start 04/15/19 at 11:00 Hydroxychloroquine Sulfate (Plaquenil) 200 mg BID PO Last administered on 04/17/19at 09:19; Start 04/15/19 at 11:00 Potassium Chloride (Klor-Con) 10 meq DAILY PO Last administered on 04/17/19at 09:45; Start 04/15/19 at 11:00 Prednisone (Prednisone) 5 mg DAILY PO Last administered on 04/17/19at 09:19; Start 04/15/19 at 11:00 Prochlorperazine Maleate (Compazine) 5 mg PRN Q6HRS PRN PO Headache; Start 04/15/19 at 10:30 Tizanidine HCl (Zanaflex) 4 mg TID PO Last administered on 04/17/19at 13:01; Start 04/15/19 at 14:00 Trazodone HCl (Desyrel) 50 mg QHS PO Last administered on 04/16/19at 20:41; Start 04/15/19 at 21:00 Levetiracetam (Keppra) 250 mg BID PO Last administered on 04/17/19 09:20; Start 04/15/19 at 11:00 Lisinopril (Prinivil) 2.5 mg DAILY PO Last administered on 04/16/19 09:55; Start 04/15/19 at 11:00; Stop 04/16/19 at 12:26; Status DC Mycophenolate Mofetil (Cellcept) 500 mg BID PO Last administered on 04/17/19 09:20; Start 04/15/19 at 11:00 Carvedilol (Coreg) 3.125 mg BIDWMEALS PO ; Start 04/15/19 at 17:00; Status UNV Furosemide (Lasix) 20 mg 1X ONCE IVP Last administered on 04/15/19at 11:28; Start 04/15/19 at 10:45; Stop 04/15/19 at 10:50; Status DC Furosemide (Lasix) 40 mg DAILY PO ; Start 04/16/19 at 09:00; Status UNV Potassium Chloride (Klor-Con) 40 meq Q2H PO Last administered on 04/15/19at 14:56; Start 04/15/19 at 11:00; Stop 04/15/19 at 13:01; Status DC Lisinopril (Prinivil) 2.5 mg DAILY PO ; Start 04/15/19 at 10:45; Status UNV Duloxetine HCl (Cymbalta) 90 mg DAILY PO Last administered on 04/16/19at 20:41; Start 04/15/19 at 11:45 Acetaminophen/ Hydrocodone Bitart (Lortab 5/325) 1 tab PRN Q4HRS PRN PO PAIN Last administered on 04/17/19at 13:03; Start 04/15/19 at 12:45 Sodium Chloride 1,000 ml @ 500 mls/hr 1X ONCE IV ; Start 04/15/19 at 20:15; Stop 04/16/19 at 01:12; Status DC Sodium Chloride 250 ml @ 250 mls/hr 1X ONCE IV ; Start 04/17/19 at 14:45; Stop 04/17/19 at 14:45; Status DC Sodium Chloride 250 ml @ 250 mls/hr 1X ONCE IV Last administered on 04/17/19at 14:49; Start 04/17/19 at 15:00; Stop 04/17/19 at 15:59; Status DC Sodium Chloride 250 ml @ 250 mls/hr 1X ONCE IV Last administered on 04/17/19at 15:24; Start 04/17/19 at 15:30; Stop 04/17/19 at 16:29; Status DC Dopamine HCl/ Dextrose 250 ml @ 9.706 mls/ hr CONT PRN IV SEE I/O RECORD Last administered on 04/17/19at 15:44; Start 04/17/19 at 15:30 Active Scripts Active Prochlorperazine Maleate 10 Mg Tablet 5 Mg PO PRN Q6HRS PRN 10 Days Ativan (Lorazepam) 1 Mg Tablet 1 Mg PO PRN QHS PRN 6 Days Hydroxychloroquine Sulfate 200 Mg Tablet 200 Mg PO BID 30 Days Reported Prednisone 5 Mg Tablet 5 Mg PO DAILY Trazodone Hcl 50 Mg Tablet 1 Tab PO QHS Tizanidine Hcl 4 Mg Tablet 1 Tab PO TID Potassium Chloride (Potassium Chloride) 10 Meq Tab.sr.24h 10 Meq PO DAILY Cellcept (Mycophenolate Mofetil) 500 Mg Tablet 1 Tab PO BID Lisinopril 2.5 Mg Tablet 1 Tab PO DAILY Keppra Xr (Levetiracetam) 500 Mg Tab.er.24h 500 Mg PO DAILY Furosemide 40 Mg Tablet 1 Tab PO DAILY Cymbalta (Duloxetine Hcl) 20 Mg Capsule.dr 1 Cap PO DAILY Coreg (Carvedilol) 3.125 Mg Tablet 3.125 Mg PO BIDWMEALS Atorvastatin Calcium 40 Mg Tablet 40 Mg PO HS Vitals/I & O Vital Sign - Last 24 Hours 04/16/19 04/16/19 04/16/19 04/17/19 20:42 20:47 22:52 03:43 Temp 97.4 97.4 Pulse 60 62 Resp 16 B/P (MAP) 102/72 (82) 101/66 (78) Pulse Ox 96 100 O2 Delivery Room Air Room Air Room Air Room Air 04/17/19 04/17/19 04/17/19 04/17/19 07:23 08:00 09:20 10:13 Temp 97.6 97.5 97.6 97.5 Pulse 68 69 Resp 16 16 16 B/P (MAP) 96/63 (74) 103/65 (78) Pulse Ox 96 96 98 O2 Delivery Room Air Room Air Room Air Room Air 04/17/19 04/17/19 04/17/19 04/17/19 10:20 13:03 14:03 14:33 Temp 97.8 97.8 Pulse 48 Resp 16 16 B/P (MAP) 75/46 (56) Pulse Ox 98 98 98 99 O2 Delivery Room Air Room Air Room Air Room Air Intake and Output 04/16/19 04/16/19 04/17/19 14:00 22:00 06:00 Intake Total 180 ml 400 ml 200 ml Output Total 200 ml 1500 ml Balance -20 ml 400 ml -1300 ml STORMY CUADRA MD Apr 17, 2019 18:21
[2019-04-17] MEDS: ATORVASTATIN CALCIUM 40 MG TABLET. PO SCH (20:35)
[2019-04-17] MEDS: traZODone 50 MG TABLET. PO SCH (20:36)
[2019-04-18] VITALS (9 sets, daily range): BP systolic 90–122; BP diastolic 58–83
[2019-04-18] MEDS: HYDROcodone/APAP 5/325MG 1 TAB TABLET PO PRN ×3 (05:44→14:46)
[2019-04-18 07:53] LABS: BASO # 0.1 x10^3/uL (0.0-0.2); BASO % 1 % (0-3); EOS # 0.2 x10^3/uL (0.0-0.7); EOS % 2 % (0-3); HEMATOCRIT 31.6 % (36.0-47.0); HEMOGLOBIN 9.7 g/dL (12.0-15.5); LYMPH # 0.6 x10^3/uL (1.0-4.8); LYMPH % 8 % (24-48); MEAN CORPUSCULAR HEMOGLOBIN 22 pg (25-35); MEAN CORPUSCULAR HGB CONC 31 g/dL (31-37); MEAN CORPUSCULAR VOLUME 70 fL (79-100); MONO # 0.5 x10^3/uL (0.0-1.1); MONO % 6 % (0-9); NEUT # 6.5 x10^3/uL (1.8-7.7); NEUT % 83 % (31-73); PLATELET COUNT 156 x10^3/uL (140-400); RED CELL DISTRIBUTION WIDTH 19.7 % (11.5-14.5); WHITE BLOOD COUNT 7.8 x10^3/uL (4.0-11.0)
[2019-04-18 08:01] LABS: CALCIUM 8.8 mg/dL (8.5-10.1); CREATININE 1.3 mg/dL (0.6-1.0); GFR 43.7; POTASSIUM 3.4 mmol/L (3.5-5.1)
[2019-04-18] MEDS: HYDROXYCHLOROQUINE 200 MG TABLET PO SCH (09:54)
[2019-04-18] MEDS: DULoxetine HCL 30 MG CAPSULE.DR PO SCH (09:54)
[2019-04-18] MEDS: tiZANidine 4 MG TABLET. PO SCH ×2 (09:54→13:16)
[2019-04-18] MEDS: MYCOPHENOLATE MOFETIL 250 MG CAPSULE. PO SCH (09:54)
[2019-04-18] MEDS: predniSONE 5 MG TABLET PO SCH (09:54)
[2019-04-18] MEDS: POTASSIUM CHLORIDE 10 MEQ TABLET.ER. PO SCH (09:54)
[2019-04-18] MEDS: levETIRAcetam 250 MG TABLET PO SCH (09:55)
[2019-04-18] MEDS: FUROSEMIDE 40 MG TABLET. PO SCH (09:55)
--- NOTE | 2019-04-18 15:40 | NUR ---
Discharge Note: BALDEMAR HARRIS [place] Discharge instructions and discharge home medications reviewed with Patient and a copy given. All questions have been answered and understanding verbalized. Report called to ALEC Weaver at [facility] on the [address]. Patient discharged to [facility] via ambulance
--- NOTE | 2019-04-18 15:58 | NUR ---
SS following up with discharge planning. [facility] contacted and 1515 stating that bed is available at [facility] on the [place]. Room number CICU6. Report# [phone] ([facility]). Pt will discharge today and go to [facility] on [facility] at 1515 via [facility] ambulance. Pt and pt's RN notified. Packet, ambulance form, and transfer form on the chart.
[2019-04-18] MEDS ORDERED: [UNRECOGNIZED DRUG - CODE] IV (16:15)
--- NOTE | 2019-04-18 16:23 | PDOC3 ---
Discharge Summary Visit Information Date of Admission: Apr 15, 2019 Date of Discharge: Apr 18, 2019 Admitting Diagnosis Comment: Acute on chronic systolic and diastolic heart failure 20% ejection fraction Depression Mitral regurg Anxiety Seizure disorder Old strokes and TIAs Marijuana use Lupus Coronary Bypass Surgery, Other 2 prior coronary stents Final Diagnosis Problems Medical Problems: (1) Acute CHF on chronic systolic dysfuntion, EF 20-25% Status: Acute (2) Hypokalemia Status: Acute (3) History of Lupus (4) Severe valvular heart disease s/p mitral valve ring in 2017 (5) history of marihuana abuse. Status: Acute Brief Hospital Course Allergies Allergies Coded Allergies Type Severity Reaction Last Updated Verified No Known Drug Allergies 07/08/18 No Vital Signs Vital Signs Date Time Temp Pulse Resp B/P (MAP) Pulse Ox O2 Delivery O2 Flow Rate FiO2 04/18/19 15:46 99 Room Air 04/18/19 15:00 97.7 69 16 105/58 (74) 97.7 Lab Results Laboratory Tests Test 04/17/19 08:55 04/18/19 07:40 White Blood Count 6.2 x10^3/uL (4.0-11.0) 7.8 x10^3/uL (4.0-11.0) Red Blood Count 4.32 x10^6/uL (3.50-5.40) 4.50 x10^6/uL (3.50-5.40) Hemoglobin 9.2 g/dL (12.0-15.5) 9.7 g/dL (12.0-15.5) Hematocrit 30.4 % (36.0-47.0) 31.6 % (36.0-47.0) Mean Corpuscular Volume 71 fL (79-100) 70 fL (79-100) Mean Corpuscular Hemoglobin 21 pg (25-35) 22 pg (25-35) Mean Corpuscular Hemoglobin Concent 30 g/dL (31-37) 31 g/dL (31-37) Red Cell Distribution Width 20.3 % (11.5-14.5) 19.7 % (11.5-14.5) Platelet Count 189 x10^3/uL (140-400) 156 x10^3/uL (140-400) Neutrophils (%) (Auto) 75 % (31-73) 83 % (31-73) Lymphocytes (%) (Auto) 16 % (24-48) 8 % (24-48) Monocytes (%) (Auto) 6 % (0-9) 6 % (0-9) Eosinophils (%) (Auto) 2 % (0-3) 2 % (0-3) Basophils (%) (Auto) 1 % (0-3) 1 % (0-3) Neutrophils # (Auto) 4.6 x10^3/uL (1.8-7.7) 6.5 x10^3/uL (1.8-7.7) Lymphocytes # (Auto) 1.0 x10^3/uL (1.0-4.8) 0.6 x10^3/uL (1.0-4.8) Monocytes # (Auto) 0.4 x10^3/uL (0.0-1.1) 0.5 x10^3/uL (0.0-1.1) Eosinophils # (Auto) 0.2 x10^3/uL (0.0-0.7) 0.2 x10^3/uL (0.0-0.7) Basophils # (Auto) 0.1 x10^3/uL (0.0-0.2) 0.1 x10^3/uL (0.0-0.2) Sodium Level 136 mmol/L (136-145) 137 mmol/L (136-145) Potassium Level 4.3 mmol/L (3.5-5.1) 3.4 mmol/L (3.5-5.1) Chloride Level 100 mmol/L (98-107) 100 mmol/L (98-107) Carbon Dioxide Level 25 mmol/L (21-32) 27 mmol/L (21-32) Anion Gap 11 (6-14) 10 (6-14) Blood Urea Nitrogen 25 mg/dL (7-20) 17 mg/dL (7-20) Creatinine 1.6 mg/dL (0.6-1.0) 1.3 mg/dL (0.6-1.0) Estimated GFR (Cockcroft-Gault) 34.4 43.7 Glucose Level 143 mg/dL (70-99) 103 mg/dL (70-99) Calcium Level 8.7 mg/dL (8.5-10.1) 8.8 mg/dL (8.5-10.1) Laboratory Tests Test 04/18/19 07:40 White Blood Count 7.8 x10^3/uL (4.0-11.0) Red Blood Count 4.50 x10^6/uL (3.50-5.40) Hemoglobin 9.7 g/dL (12.0-15.5) Hematocrit 31.6 % (36.0-47.0) Mean Corpuscular Volume 70 fL (79-100) Mean Corpuscular Hemoglobin 22 pg (25-35) Mean Corpuscular Hemoglobin Concent 31 g/dL (31-37) Red Cell Distribution Width 19.7 % (11.5-14.5) Platelet Count 156 x10^3/uL (140-400) Neutrophils (%) (Auto) 83 % (31-73) Lymphocytes (%) (Auto) 8 % (24-48) Monocytes (%) (Auto) 6 % (0-9) Eosinophils (%) (Auto) 2 % (0-3) Basophils (%) (Auto) 1 % (0-3) Neutrophils # (Auto) 6.5 x10^3/uL (1.8-7.7) Lymphocytes # (Auto) 0.6 x10^3/uL (1.0-4.8) Monocytes # (Auto) 0.5 x10^3/uL (0.0-1.1) Eosinophils # (Auto) 0.2 x10^3/uL (0.0-0.7) Basophils # (Auto) 0.1 x10^3/uL (0.0-0.2) Sodium Level 137 mmol/L (136-145) Potassium Level 3.4 mmol/L (3.5-5.1) Chloride Level 100 mmol/L (98-107) Carbon Dioxide Level 27 mmol/L (21-32) Anion Gap 10 (6-14) Blood Urea Nitrogen 17 mg/dL (7-20) Creatinine 1.3 mg/dL (0.6-1.0) Estimated GFR (Cockcroft-Gault) 43.7 Glucose Level 103 mg/dL (70-99) Calcium Level 8.8 mg/dL (8.5-10.1) Brief Hospital Course Ms. Mallory is a 48 old ;female who presented to our emergency department quite dyspneic. The patient was diagnosed with acute on chronic systolic dysfunction heart failure. She was started on diuresis unfortunately her blood pressure continued to deteriorate. Her Coreg and lisinopril had to be held as well. The patient usually has her care at [facility] where she has had the procedures of mitral valve ring done as well. Our extruding department supervisor felt that patient likely needs advanced heart failure therapies and these are not available at critical access hospital. Hence transferred to [facility] was requested. The case was discussed with the primary county sheriff by our international travel consultant. At the time off transferred the patient is on dopamine noted to support her blood pressure no chest pain no palpitations were reported prior to transfer. Discharge Information Condition at Discharge: Stable Disposition/Orders: D/C to Another Facility Scheduled Atorvastatin Calcium (Atorvastatin Calcium) 40 Mg Tablet, 40 MG PO HS for FOR CHOLESTEROL, #30 Ref 0 (Reported) Entered as Reported by: AME ADAME RN on 07/08/181955 Last Action: Continued on 04/15/191028 by CARIDAD BRADEN RN Carvedilol (Coreg ) 3.125 Mg Tablet, 3.125 MG PO BIDWMEALS for CARDIAC, (Reported) Entered as Reported by: AME ADAME RN on 07/08/181955 Last Action: Continued on 04/15/191028 by CARIDAD BRADEN RN Dopamine HCl in Dextrose 5 % (Dopamine 400 mg/250 ml-D5w Bag) 400 Mg/250 Ml Plast..bag, 400 MG IV 1X for hypotension for 1 Days Prescribed by: STORMY CUADRA MD on 04/18/19 1615 Duloxetine Hcl (Cymbalta) 20 Mg Capsule.dr, 1 CAP PO DAILY, #30 Ref 2 (Reported) Entered as Reported by: AME ADAME RN on 07/08/181955 Last Action: Continued on 04/15/191028 by CARIDAD BRADEN RN Furosemide (Furosemide) 40 Mg Tablet, 1 TAB PO DAILY, #30 Ref 5 (Reported) Entered as Reported by: AME ADAME RN on 07/08/181955 Last Action: Continued on 04/15/191028 by CARIDAD BRADEN RN Hydroxychloroquine Sulfate (Hydroxychloroquine Sulfate) 200 Mg Tablet, 200 MG PO BID for Lupus for 30 Days, #60 Ref 2 Prescribed by: RYDER MARIN MD on 07/11/18 1601 Last Action: Continued on 04/15/191028 by CARIDAD BRADEN RN Levetiracetam (Keppra Xr) 500 Mg Tab.er.24h, 500 MG PO DAILY, (Reported) Entered as Reported by: AME ADAME RN on 07/08/181955 Last Action: Converted on 04/15/191028 by CARIDAD BRADEN RN Lisinopril (Lisinopril) 2.5 Mg Tablet, 1 TAB PO DAILY, #30 Ref 5 (Reported) Entered as Reported by: AME ADAME RN on 07/08/181955 Last Action: Converted on 04/15/191028 by CARIDAD BRADEN RN Mycophenolate Mofetil (Cellcept) 500 Mg Tablet, 1 TAB PO BID, #180 Ref 3 (Reported) Entered as Reported by: AME ADAME RN on 07/08/181955 Last Action: Converted on 04/15/191028 by CARIDAD BRADEN RN Potassium Chloride (Potassium Chloride ) 10 Meq Tab.sr.24h, 10 MEQ PO DAILY, (Reported) Entered as Reported by: AME ADAME RN on 07/08/181955 Last Action: Continued on 04/15/191028 by CARIDAD BRADEN RN Prednisone (Prednisone) 5 Mg Tablet, 5 MG PO DAILY for auto immune disorder, (Reported) Entered as Reported by: Nadir Woods on 04/15/19 0233 Last Action: Continued on 04/15/191028 by CARIDAD BRADEN RN Tizanidine Hcl (Tizanidine Hcl) 4 Mg Tablet, 1 TAB PO TID, #90 (Reported) Entered as Reported by: AME ADAME RN on 07/08/181955 Last Action: Continued on 04/15/191028 by CARIDAD BRADEN RN Trazodone Hcl (Trazodone Hcl) 50 Mg Tablet, 1 TAB PO QHS for SLEEP, #30 Ref 1 (Reported) Entered as Reported by: Nadir Woods on 04/15/19 0210 Last Action: Continued on 04/15/19 1029 by CARIDAD BRADEN RN Scheduled PRN Lorazepam (Ativan) 1 Mg Tablet, 1 MG PO PRN QHS PRN for ANXIETY / AGITATION for 6 Days, #6 Prescribed by: RYDER MARIN MD on 07/11/18 1601 Prochlorperazine Maleate (Prochlorperazine Maleate) 10 Mg Tablet, 5 MG PO PRN Q6HRS PRN for Headache for 10 Days, #24 Prescribed by: RYDER MARIN MD on 07/11/18 1601 Last Action: Continued on 04/15/19 102 by CARIDAD BRADEN RN Discontinued Medications Prednisone (Prednisone) 2.5 Mg Tablet, 1 TAB PO DAILY, #30 Ref 3 (Reported) Discontinued Reason: Prescription changed Entered as Reported by: AME ADAME RN on 07/08/181955 STORMY CUADRA MD Apr 18, 2019 16:23
--- NOTE | 2019-04-18 16:26 | PDOC ---
CARDIOLOGY PROGRESS NOTE SUBJECTIVE: No significant changes overnight. Continues to be tired and on dopamine for BP mgmt. OBJECTIVE: Vital Signs/I&O: Vital Signs Date Time Temp Pulse Resp B/P (MAP) Pulse Ox O2 Delivery O2 Flow Rate FiO2 04/18/19 15:46 99 Room Air 04/18/19 15:00 97.7 69 16 105/58 (74) 97.7 I & O 04/17/19 04/17/19 04/18/19 14:59 22:59 06:59 Intake Total 180 ml 650 ml 400 ml Output Total 1050 ml 1600 ml Balance 180 ml -400 ml -1200 ml Objective: Appears fatigued. she has cardiac cachexia. No LE edema. Lungs with bilateral rhonchi Systolic murmurs consistent with TR/MR. CURRENT MEDICATIONS: Dopamine gtt DIAGNOSTIC TESTING: Labs reviewed. Labs: Laboratory Tests 04/18/19 07:40 Laboratory Tests Test 04/18/19 07:40 White Blood Count 7.8 x10^3/uL (4.0-11.0) Red Blood Count 4.50 x10^6/uL (3.50-5.40) Hemoglobin 9.7 g/dL (12.0-15.5) L Hematocrit 31.6 % (36.0-47.0) L Mean Corpuscular Volume 70 fL (79-100) L Mean Corpuscular Hemoglobin 22 pg (25-35) L Mean Corpuscular Hemoglobin Concent 31 g/dL (31-37) Red Cell Distribution Width 19.7 % (11.5-14.5) H Platelet Count 156 x10^3/uL (140-400) Neutrophils (%) (Auto) 83 % (31-73) H Lymphocytes (%) (Auto) 8 % (24-48) L Monocytes (%) (Auto) 6 % (0-9) Eosinophils (%) (Auto) 2 % (0-3) Basophils (%) (Auto) 1 % (0-3) Neutrophils # (Auto) 6.5 x10^3/uL (1.8-7.7) Lymphocytes # (Auto) 0.6 x10^3/uL (1.0-4.8) L Monocytes # (Auto) 0.5 x10^3/uL (0.0-1.1) Eosinophils # (Auto) 0.2 x10^3/uL (0.0-0.7) Basophils # (Auto) 0.1 x10^3/uL (0.0-0.2) Sodium Level 137 mmol/L (136-145) Potassium Level 3.4 mmol/L (3.5-5.1) L Chloride Level 100 mmol/L (98-107) Carbon Dioxide Level 27 mmol/L (21-32) Anion Gap 10 (6-14) Blood Urea Nitrogen 17 mg/dL (7-20) Creatinine 1.3 mg/dL (0.6-1.0) H Estimated GFR (Cockcroft-Gault) 43.7 Glucose Level 103 mg/dL (70-99) H Calcium Level 8.8 mg/dL (8.5-10.1) ASSESSMENT: 1. Acute on chronic systolic and diastolic HF 2. ICMP s/p 6V CABG PLAN: 1. She has signs and symptoms of cardiogenic shock. Awaiting transfer to tertiary medical center. JEREMIAH VALDERRAMA MD Apr 18, 2019 16:26
== END 2019-04-18 17:25 | disposition short-term general hospital (02) | DRG 682 ==
LOC: ER 21:45 → 2 NORTH 04-15 00:33
PROVIDERS: ADMIT Internal Medicine; ATTEND Internal Medicine
DX: N17.0 Acute kidney failure with tubular necrosis (principal); I50.43 Acute on chronic combined systolic (congestive) and diastolic (congestive) heart failure; E87.6 Hypokalemia; D64.9 Anemia, unspecified; E87.5 Hyperkalemia; F32.9 Major depressive disorder, single episode, unspecified; F41.9 Anxiety disorder, unspecified; G40.909 Epilepsy, unspecified, not intractable, without status epilepticus; G43.909 Migraine, unspecified, not intractable, without status migrainosus; H54.8 Legal blindness, as defined in USA; I11.0 Hypertensive heart disease with heart failure; I25.10 Atherosclerotic heart disease of native coronary artery without angina pectoris; I25.5 Ischemic cardiomyopathy; I34.0 Nonrheumatic mitral (valve) insufficiency; Z79.01 Long term (current) use of anticoagulants; Z79.899 Other long term (current) drug therapy; Z82.49 Family history of ischemic heart disease and other diseases of the circulatory system; Z86.73 Personal history of transient ischemic attack (TIA), and cerebral infarction without residual deficits; Z95.1 Presence of aortocoronary bypass graft; Z95.5 Presence of coronary angioplasty implant and graft; F12.10 Cannabis abuse, uncomplicated; I25.2 Old myocardial infarction
CPT/HCPCS: 36415; 71045; 80048; 80053; 81001; 83880; 84484; 85025; 85379; 85610; 93005; 93971; 96372; 96374; 96375; J1200; J1265; J1650; J1885; J1940; J2765; J7040; J7050; J7512; J7517; 99291-25; G0378; J7030

== ENCOUNTER 2019-06-17 16:26 | Emergency (ER) | payer BC, MEDICARE ==
[~2019-06-17] VITALS: Ht 157.5 cm; Wt 46.0 kg
[~2019-06-17 16:26] MED LIST changes: +PRED5TAB PO; +TRAZ-118 PO; +[UNRECOGNIZED DRUG - CODE] IV
[2019-06-17 17:07] LABS: BASO # 0.1 x10^3/uL (0.0-0.2); BASO % 1 % (0-3); EOS # 0.1 x10^3/uL (0.0-0.7); EOS % 1 % (0-3); HEMATOCRIT 37.4 % (36.0-47.0); HEMOGLOBIN 12.5 g/dL (12.0-15.5); LYMPH # 1.9 x10^3/uL (1.0-4.8); LYMPH % 24 % (24-48); MEAN CORPUSCULAR HEMOGLOBIN 29 pg (25-35); MEAN CORPUSCULAR HGB CONC 34 g/dL (31-37); MEAN CORPUSCULAR VOLUME 87 fL (79-100); MONO # 0.5 x10^3/uL (0.0-1.1); MONO % 6 % (0-9); NEUT # 5.5 x10^3/uL (1.8-7.7); NEUT % 69 % (31-73); PLATELET COUNT 219 x10^3/uL (140-400); RED BLOOD COUNT 4.28 x10^6/uL (3.50-5.40); RED CELL DISTRIBUTION WIDTH 21.6 % (11.5-14.5)
[2019-06-17 17:12] LABS: CALCIUM 8.8 mg/dL (8.5-10.1); CREATININE 1.7 mg/dL (0.6-1.0); GFR 32.1; POTASSIUM 3.3 mmol/L (3.5-5.1)
[2019-06-17 17:17] LABS: ALBUMIN 3.7 g/dL (3.4-5.0); ALBUMIN/GLOBULIN RATIO 0.8 (1.0-1.7); TOTAL BILIRUBIN 0.3 mg/dL (0.2-1.0); TOTAL PROTEIN 8.3 g/dL (6.4-8.2)
[2019-06-17 17:22] LABS: PROTHROMBIN TIME PATIENT 47.7 SEC (11.7-14.0)
[2019-06-17 18:00] VITALS: BP 133/101
--- NOTE | 2019-06-17 18:28 | PHYS DOC ---
Past Medical History Past Medical History: Anxiety, Depression, VT, Seizure, Stroke, TIA, Other Additional Past Medical Histor: LUPUS Past Surgical History: Coronary Bypass Surgery, Other Additional Past Surgical Histo: 2X STENT PLACEMENT, CARDIAC BYPASS X 6 Smoking Status: Former Smoker Alcohol Use: Rarely Drug Use: Marijuana Adult General Chief Complaint Chief Complaint: DIZZY/LIGHT HEADED HPI HPI Patient is a 48 year old female with a history of multiple medical problems including VT, anxiety, depression, stroke, who presents to the ED today co mplaining of elevated INR. 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 She states her INR today done by the home health nurse was 6.0, she reports yesterday it was 8 and they had asked her to hold her Coumadin Review of Systems Review of Systems Constitutional: Denies fever or chills [] Eyes: Denies change in visual acuity, redness, or eye pain [] HENT: Denies nasal congestion or sore throat [] Respiratory: Denies cough or shortness of breath [] Cardiovascular: Reports elevated INR. No additional information not addressed in HPI [] GI: Denies abdominal pain, nausea, vomiting, bloody stools or diarrhea [] : Denies dysuria or hematuria [] Musculoskeletal: Denies back pain or joint pain [] Integument: Denies rash or skin lesions [] Neurologic: Denies headache, focal weakness or sensory changes [] All other systems were reviewed and found to be within normal limits, except as documented in this note. Current Medications Current Medications Current Medications Medications (Trade) Dose Ordered Sig/[facility] Start Time Stop Time Status Last Admin Dose Admin Acetaminophen (Tylenol) 1,000 mg 1X ONCE 06/17/19 18:30 06/17/19 18:31 Potassium Chloride (Klor-Con) 40 meq 1X ONCE 06/17/19 18:30 06/17/19 18:31 Allergies Allergies Allergies Coded Allergies Type Severity Reaction Last Updated Verified No Known Drug Allergies 07/08/18 No Physical Exam Physical Exam Constitutional: Well developed, well nourished, no acute distress, non-toxic appearance. [] HENT: Normocephalic, atraumatic, bilateral external ears normal, oropharynx moist, no oral exudates, nose normal. [] Eyes: PERRLA, EOMI, conjunctiva normal, no discharge. [] Neck: Normal range of motion, no tenderness, supple, no stridor. [] Cardiovascular:Heart rate regular rhythm Lungs & Thorax: Bilateral breath sounds clear to auscultation [] Abdomen: Bowel sounds normal, soft, no tenderness, no masses, no pulsatile masses. [] Skin: Warm, dry, no erythema, no rash. [] Back: No tenderness, no CVA tenderness. [] Extremities: No tenderness, no cyanosis, no clubbing, ROM intact, no edema. [] Neurologic: Alert and oriented X 3, normal motor function, normal sensory function, no focal deficits noted. Cranial nerves II through XII intact Psychologic: Affect normal, judgement normal, mood normal. [] Current Patient Data Vital Signs Vital Signs Date Time Temp Pulse Resp B/P (MAP) Pulse Ox O2 Delivery O2 Flow Rate FiO2 06/17/19 16:37 98.2 84 16 161/103 (122) 98 Room Air 98.2 Lab Values Laboratory Tests Test 06/17/19 16:58 White Blood Count 8.0 x10^3/uL (4.0-11.0) Red Blood Count 4.28 x10^6/uL (3.50-5.40) Hemoglobin 12.5 g/dL (12.0-15.5) Hematocrit 37.4 % (36.0-47.0) Mean Corpuscular Volume 87 fL (79-100) Mean Corpuscular Hemoglobin 29 pg (25-35) Mean Corpuscular Hemoglobin Concent 34 g/dL (31-37) Red Cell Distribution Width 21.6 % (11.5-14.5) H Platelet Count 219 x10^3/uL (140-400) Neutrophils (%) (Auto) 69 % (31-73) Lymphocytes (%) (Auto) 24 % (24-48) Monocytes (%) (Auto) 6 % (0-9) Eosinophils (%) (Auto) 1 % (0-3) Basophils (%) (Auto) 1 % (0-3) Neutrophils # (Auto) 5.5 x10^3/uL (1.8-7.7) Lymphocytes # (Auto) 1.9 x10^3/uL (1.0-4.8) Monocytes # (Auto) 0.5 x10^3/uL (0.0-1.1) Eosinophils # (Auto) 0.1 x10^3/uL (0.0-0.7) Basophils # (Auto) 0.1 x10^3/uL (0.0-0.2) Platelet Estimate Pending Prothrombin Time 47.7 SEC (11.7-14.0) H Prothrombin Time INR 5.0 (0.8-1.1) *H Activated Partial Thromboplast Time 77 SEC (24-38) H Sodium Level 135 mmol/L (136-145) L Potassium Level 3.3 mmol/L (3.5-5.1) L Chloride Level 101 mmol/L (98-107) Carbon Dioxide Level 25 mmol/L (21-32) Anion Gap 9 (6-14) Blood Urea Nitrogen 12 mg/dL (7-20) Creatinine 1.7 mg/dL (0.6-1.0) H Estimated GFR (Cockcroft-Gault) 32.1 BUN/Creatinine Ratio 7 (6-20) Glucose Level 114 mg/dL (70-99) H Calcium Level 8.8 mg/dL (8.5-10.1) Total Bilirubin 0.3 mg/dL (0.2-1.0) Aspartate Amino Transferase (AST) 27 U/L (15-37) Alanine Aminotransferase (ALT) 38 U/L (14-59) Alkaline Phosphatase 143 U/L (46-116) H Total Protein 8.3 g/dL (6.4-8.2) H Albumin 3.7 g/dL (3.4-5.0) Albumin/Globulin Ratio 0.8 (1.0-1.7) L Laboratory Tests 06/17/19 16:58 Laboratory Tests 06/17/19 16:58 EKG EKG [] Radiology/Procedures Radiology/Procedures [] Course & Med Decision Making Course & Med Decision Making Pertinent Labs and Imaging studies reviewed. (See chart for details) This is a 48-year-old female patient presenting to the ED today to be evaluated for elevated INR, she is on Coumadin 3 mg daily for mechanical valve. She reports yesterday her INR was 8 and her Coumadin was held, today her INR was 6 and she was sent to the ED. Denies any rectal bleeding. INR in the ED is 5.0. Instructed patient to hold her Coumadin dose for today and have her home health nurse recheck it tomorrow. Leila Disclaimer Leila Disclaimer This electronic medical record was generated, in whole or in part, using a voice recognition dictation system. Departure Departure Impression: Primary Impression: Elevated INR Disposition: HOME, SELF-CARE Condition: STABLE Referrals: NON,STAFF (PCP) Follow-up with your doctor tomorrow and have them check your INR Patient Instructions: Prothrombin Time, International Normalized Ratio Additional Instructions: Your INR in the emergency room was 5.0. Do not take Coumadin today. Please have your doctor/your nurse check your INR tomorrow morning. Come back to the ED at any point you have worsening symptoms. KELSEA MCINTOSH [employer] CHECKER Jun 17, 2019 18:28
[2019-06-17] MEDS ORDERED: ACETAMINOPHEN 500 MG TABLET PO ONE (18:30)
[2019-06-17] MEDS ORDERED: POTASSIUM CHLORIDE 20 MEQ TABLET.ER. PO ONE (18:30)
[2019-06-17 19:54] LABS: MICROCYTOSIS SLIGHT; PLT ESTIMATE ADEQUATE (ADEQUATE)
== END 2019-06-17 18:47 | disposition home or self-care (01) ==
LOC: ER 16:26
DX: R79.1 Abnormal coagulation profile (principal); F41.9 Anxiety disorder, unspecified; F32.9 Major depressive disorder, single episode, unspecified; Z86.73 Personal history of transient ischemic attack (TIA), and cerebral infarction without residual deficits
CPT/HCPCS: 36415; 80053; 85025; 85610; 85730; 99283-25